=== PATIENT | male | born 1935 | race Caucasian/White ===

== ENCOUNTER → 2017-01-29 | Outpatient (CLI) | payer MEDICARE, BC ==
[2016-03-18 11:06] VITALS: BP 98/66
[~2017-01-29] MED LIST: ACET500T68 PO; ASPI81TA2 PO; CARB15DR3 OU; CARB1TAB2 PO; CARB1TAB43 PO; CEFP200T PO; CHOL100013 PO; HYPO40SP TP; MULT1TAB52 PO; NEBI5TAB2 PO; PRED1DRO OU; SIMV10TA3 PO
--- NOTE | 2017-01-29 15:33 | RAD ---
Radionuclide bone scan, 01/29/2017: History: Right hip pain, prostate cancer, recent fall Whole body imaging was performed following IV injection of 25.4 mCi of technetium 99m MDP. No previous bone scan is available at this time for comparison purposes. The following findings are delineated: 1. Foci of markedly increased activity are seen along the anterior aspects of multiple mid and upper left ribs as well as along the posterior aspects of 3 upper ribs on the left. This pattern of increased activity at the same level in adjacent ribs is typically due to trauma. 2. There is a photon deficient area of the right hip due to the patient's known hip prosthesis. There is increased activity along the acetabular margin of the prosthesis. This could be due to loosening or infection of the acetabular component. Correlation with radiographic findings is suggested. 3. Moderately increased activity in the region of the left fibular head or proximal tibia laterally. This is a nonspecific finding which may be due to trauma, given this patient's history of a recent fall. A solitary bone metastasis is less likely. Knee radiographs may be useful for further evaluation, if clinically indicated. 4. The kidneys demonstrate abnormal heterogeneous radionuclide uptake compatible with the patient's known multiple breast cysts. 5. Mildly increased activity in the lower lumbar spine on the left is likely arthritic in nature. Metastatic disease cannot be entirely excluded. 5. The bone scan is otherwise unremarkable.
== END | disposition home or self-care (01) ==
LOC: NM 10:45
PROVIDERS: ATTEND Family Medicine
DX: C61 Malignant neoplasm of prostate (principal); M25.551 Pain in right hip; Z85.46 Personal history of malignant neoplasm of prostate
CPT/HCPCS: 78306; 96374; A9503

== ENCOUNTER 2018-06-24 13:45 | Inpatient (IN) | payer MEDICARE, BC ==
[~2018-06-24] VITALS: Ht 182.9 cm; Wt 85.4 kg
[~2018-06-24 13:45] MED LIST changes: +ASPI-630 PO; -ASPI81TA2 PO
[2018-06-24] MEDS ORDERED: PIPE3.3734 IV (17:59)
[2018-06-24] MEDS ORDERED: ASCO500C9 PO (17:59)
[2018-06-24] MEDS ORDERED: METO50TA6 PO (17:59)
[2018-06-24] MEDS ORDERED: SENN1TAB21 PO (17:59)
[2018-06-24] MEDS ORDERED: DOCU100C28 PO (17:59)
[2018-06-24] MEDS ORDERED: FERR325T14 PO (17:59)
[2018-06-24] MEDS ORDERED: POLY17PO5 PO (17:59)
[2018-06-24] MEDS ORDERED: OXYB5TAB33 PO (17:59)
[2018-06-24] MEDS ORDERED: POLY15DR27 OP (17:59)
[2018-06-24] MEDS ORDERED: CARB1TAB2 PO (17:59)
[2018-06-24] MEDS ORDERED: LACT1CAP21 PO (17:59)
[2018-06-24] MEDS ORDERED: VANC1.2514 IV (17:59)
[2018-06-24] MEDS ORDERED: DEXA5DRO OP (17:59)
[2018-06-24] MEDS ORDERED: ASCO-72 PO (17:59)
[2018-06-24 18:31] VITALS: BP 115/69
[2018-06-24] MEDS ORDERED: CARB1TAB4 PO (19:10)
[2018-06-24] MEDS: CARBIDOPA/LEVODOPA 25/100MG TABLET PO SCH (19:51)
[2018-06-24] MEDS ORDERED: POLYETHYLENE GLYCOL 3350 17 GM PACKET. PO PRN (20:00)
[2018-06-24] MEDS: VANCOMYCIN PER PHARMACY MC PRN (20:30)
[2018-06-24] MEDS: OXYBUTYNIN CHLORIDE 5 MG TABLET PO SCH (20:34)
[2018-06-24] MEDS: SIMVASTATIN 10 MG TABLET PO SCH (20:35)
[2018-06-24] MEDS: METOPROLOL TART IMMED RELEASE 50 MG TABLET PO SCH (20:35)
[2018-06-24] MEDS: ASCORBIC ACID 500 MG TABLET PO SCH (20:35)
[2018-06-24] MEDS: CARBIDOPA/LEVODOPA CR 25/100MG TABLET.SA PO SCH (20:35)
[2018-06-24] MEDS: LACTOBACILLUS RHAMNOSUS GG 1 CAPSULE. PO SCH (20:35)
[2018-06-24] MEDS: FERROUS SULFATE 325 MG TABLET. PO SCH (20:35)
[2018-06-24] MEDS: DOCUSATE SODIUM 100 MG CAPSULE PO SCH (20:35)
[2018-06-24] MEDS: POLYVINYL ALCOHOL 1.4% OPHTH SOLUTION 15ML BOTTLE. OU SCH (20:35)
[2018-06-24] MEDS: PIPERACILLIN/TAZOBACTAM 3.375 GM in IV NORMAL SALINE 50ML 50 ML IV SCH ×2 (20:36→23:17)
[2018-06-24] MEDS ORDERED: [UNRECOGNIZED DRUG - OTHER] IV SCH (21:00)
[2018-06-24] MEDS ORDERED: VANCOMYCIN HCL IN DEXTROSE IV SCH (21:00)
[2018-06-24] MEDS: VANCOMYCIN 1.25 GM in IV NORMAL SALINE 250ML 250 ML IV SCH (21:11)
[2018-06-25 05:24] VITALS: BP 156/77
[2018-06-25] MEDS: PIPERACILLIN/TAZOBACTAM 3.375 GM in IV NORMAL SALINE 50ML 50 ML IV SCH ×3 (06:13→17:48)
[2018-06-25] MEDS: CARBIDOPA/LEVODOPA 25/100MG TABLET PO SCH ×4 (06:15→18:03)
[2018-06-25 06:42] LABS: BASO # 0.1 x10^3/uL (0.0-0.2); BASO % 1 % (0-3); EOS # 0.3 x10^3/uL (0.0-0.7); EOS % 3 % (0-3); HEMOGLOBIN 8.5 g/dL (13.0-17.5); LYMPH % 10 % (24-48); MEAN CORPUSCULAR HEMOGLOBIN 30 pg (25-35); MEAN CORPUSCULAR HGB CONC 33 g/dL (31-37); MEAN CORPUSCULAR VOLUME 91 fL (79-100); MONO # 0.8 x10^3/uL (0.0-1.1); MONO % 8 % (0-9); NEUT # 7.3 x10^3uL (1.8-7.7); NEUT % 78 % (31-73); PLATELET COUNT 94 x10^3/uL (140-400); RED BLOOD COUNT 2.87 x10^6/uL (4.30-5.70); RED CELL DISTRIBUTION WIDTH 16.2 % (11.5-14.5); WHITE BLOOD COUNT 9.4 x10^3/uL (4.0-11.0)
[2018-06-25 06:47] LABS: CALCIUM 8.4 mg/dL (8.5-10.1); CREATININE 0.8 mg/dL (0.7-1.3); GFR 92.5; POTASSIUM 3.9 mmol/L (3.5-5.1)
[2018-06-25 07:32] LABS: % BANDS 1 % (0-9); % BASOS 0 % (0-3); % EOS 4 % (0-5); % LYMPHS 8 % (24-48); % MONOS 3 % (0-10); % SEGS 84 % (35-66); PLT ESTIMATE DECREASED (ADEQUATE)
[2018-06-25 08:54] LABS: HYPOCHROMIA PRESENT; POLYCHROMASIA PRESENT
[2018-06-25] MEDS: VANCOMYCIN 1.25 GM in IV NORMAL SALINE 250ML 250 ML IV SCH ×2 (09:44→21:23)
[2018-06-25] MEDS: DOCUSATE SODIUM 100 MG CAPSULE PO SCH ×2 (09:45→21:00)
[2018-06-25] MEDS: ACETAMINOPHEN 325 MG TABLET PO PRN (09:45)
[2018-06-25] MEDS: ASCORBIC ACID 500 MG TABLET PO SCH ×2 (09:45→21:25)
[2018-06-25] MEDS: FERROUS SULFATE 325 MG TABLET. PO SCH ×2 (09:45→21:24)
[2018-06-25] MEDS: METOPROLOL TART IMMED RELEASE 50 MG TABLET PO SCH ×2 (09:45→21:24)
[2018-06-25] MEDS: LACTOBACILLUS RHAMNOSUS GG 1 CAPSULE. PO SCH ×2 (09:45→21:24)
[2018-06-25] MEDS: SENNOSIDES/DOCUSATE 8.6/50MG TABLET. PO SCH (09:46)
[2018-06-25] MEDS: OXYBUTYNIN CHLORIDE 5 MG TABLET PO SCH ×2 (09:46→21:24)
[2018-06-25] MEDS: MULTIVITAMIN with MINERAL TABLET. PO SCH (09:46)
[2018-06-25] MEDS: POLYVINYL ALCOHOL 1.4% OPHTH SOLUTION 15ML BOTTLE. OU SCH ×2 (09:48→21:26)
--- NOTE | 2018-06-25 15:54 | PDOC1 ---
History of Present Illness History of Present Illness Patient is an 83-year-old male admitted for swing bed status for IV antibiotics and PT/OT. Patient suffered a fall while trying to walk backwards on the driveway and suffered a left femoral neck fracture. May 30, 2018 underwent left hip hemiarthroplasty and was discharged back to [facility] where he fell again and suffered a periprosthetic fracture. June 11, 2018 he went back to the OR for rewiring of the fracture and added hardware. He was again discharged however blood cultures came back positive for multiple organisms (MRSA, pseudomonas, enterococcus) and the patient was admitted with infectious disease consultation. He is currently on Zosyn and vancomycin I find the patient today sedated with breakthrough shahida-ballistic movements. According to his spouse who is at bedside his Parkinson medications have to be given on a very specific regimen or he can exhibit these types of neurologic symptoms. Physical therapy has been working with him trying to get him to stand he is currently sleeping and snoring loudly. Allergies: Coded Allergies: I S O L A T I O N *CONTACT* (Verified Allergy, Unknown, 06/27/18) +MRSA hip 06/11/2018 NKMA (Verified Allergy, Unknown, 06/27/18) Past Medical History Cardiac: HTN, hyperipidemia, valve insufficiency SERVICE DISPATCHER: Dementia (Parkinson's) Renal/: Benign prostatic enlarg., Prostate Ca., Urinary Incontinence Past Surgical History: Other (left hip hemiarthroplasty status post rewiring periprosthetic fracture and revision due to infection) Past Social History Smoke: No Alcohol: none Drugs: None Lives: with Family (lives at home with his ) Review of Systems Review Of Systems Due to patient's sedation accurate review of systems is unobtainable Medications Current Medications Carbidopa/Levodopa (Sinemet 25/100) 2 tab 0630,1030,1430,1830 PO Last administered on 06/25/18at 14:11; Start 06/24/18 at 20:00 Dexamethasone (Maxidex) 1 drop QMWF@0900 OU ; Start 06/27/18 at 09:00 Ferrous Sulfate (Feosol) 325 mg BID PO Last administered on 06/25/18at 09:45; Start 06/24/18 at 21:00 Artificial Tears (Artificial Tears) 1 drop BID OU Last administered on at 09:48; Start 06/24/18 at 21:00 Senna/Docusate Sodium (Senna Plus) 1 tab DAILY PO Last administered on 09:46; Start 06/25/18 at 09:00 Simvastatin (Zocor) 10 mg HS PO Last administered on 06/24/18 20:35; Start at 21:00 Acetaminophen (Tylenol) 650 mg PRN Q4HRS PRN PO PAIN / TEMP Last administered on 06/25/18 09:45; Start 06/24/18 at 19:45 Ascorbic Acid (Vitamin C) 500 mg BID PO Last administered on 06/25/18 09:45; Start 06/24/18 at 21:00 Carbidopa/Levodopa (Sinemet Cr) 2 tab.sa QHS PO Last administered on 06/24/18 20:35; Start 06/24/18 at 21:00 Docusate Sodium (Colace) 100 mg BID PO Last administered on 06/25/18 09:45; Start 06/24/18 at 21:00 Lactobacillus Rhamnosus (Culturelle) 1 cap BID PO Last administered on 09:45; Start 06/24/18 at 21:00 Metoprolol Tartrate (Lopressor) 50 mg BID PO Last administered on 06/25/18 09: 45; Start 06/24/18 at 21:00 Multivitamins/ Calcium (Thera-M Plus) 1 tab DAILY PO Last administered on 09:46; Start 06/25/18 at 09:00 Oxybutynin Chloride (Ditropan) 5 mg BID PO Last administered on 06/25/18 09:46 ; Start 06/24/18 at 21:00 Non-Formulary Medication (Piperacillin Sodium/Tazobactam (Piperacil-Tazobact 3.375 Gm Vl)) 3.375 gm Q6HRS IV ; Start 06/25/18 at 00:00; Status UNV Polyethylene Glycol (miraLAX) 17 gm PRN DAILY PRN PO CONSTIPATION; Start at 20:00 Non-Formulary Medication (Vancomycin HCl in Dextrose 5 % (Vancomycin 1.25 Gram/ 250Ml-D5w)) 1.25 gm Q12HR IV ; Start 06/24/18 at 21:00; Status UNV Piperacillin Sod/ Tazobactam Sod 3.375 gm/Sodium Chloride 50 ml @ 100 mls/hr Q6HRS IV Last administered on 06/25/18at 14:11; Start 06/24/18 at 20:30 Vancomycin HCl (Vanco Per Pharmacy) 1 each PRN DAILY PRN MC SEE COMMENTS Last administered on 06/24/18at 20:30; Start 06/24/18 at 19:45 Vancomycin HCl 1.25 gm/Sodium Chloride 250 ml @ 167 mls/hr Q12H IV Last administered on 06/25/18at 09:44; Start 06/24/18 at 21:00 Vancomycin HCl (Vancomycin Trough Level) 1 each 1X ONCE MC ; Start 06/27/18 at 08:30; Stop 06/27/18 at 08:31 Active Scripts Active Reported Sinemet Cr 25-100 Tablet (Carbidopa/Levodopa) 1 Each Tablet.er 1 Each PO HS Vancomycin 1.25 Gram/250Ml-D5w (Vancomycin HCl in Dextrose 5 %) 1.25 Gm/250 Ml Plast..bag 1.25 Gm IV Q12HR Senna Plus Tablet (Sennosides/Docusate Sodium) 1 Each Tablet 1 Each PO DAILY Artificial Tears (Polyvinyl Alcohol) 15 Ml Drops 15 Ml OP BID Miralax (Polyethylene Glycol 3350) 17 Gm Powd.pack 17 Gm PO PRN DAILY Piperacil-Tazobact 3.375 Gm Vl (Piperacillin Sodium/Tazobactam) 3.375 Gm Vial 3.375 Gm IV Q6HRS Ditropan Xl (Oxybutynin Chloride) 5 Mg Tab.er.24 5 Mg PO BID Metoprolol Tartrate 50 Mg Tablet 50 Mg PO BID Culturelle (Lactobacillus Rhamnosus Gg) 1 Each Capsule 1 Each PO BID Ferrous Sulfate 325 Mg Tablet 325 Mg PO BID Docusate Sodium 100 Mg Capsule 100 Mg PO BID Maxidex (Dexamethasone) 5 Ml Drops.susp 5 Ml OP QMWF Vitamin C (Ascorbic Acid) 500 Mg Capsule 500 Mg PO BID Acetaminophen 500 Mg Tablet 650 Mg PO PRN Q4HRS PRN LAST DOSE GIVEN: DATE: TIME: NEXT DOSE DUE: DATE: TIME: Multivitamins (Multivitamin) 1 Each Tablet 1 Each PO DAILY LAST DOSE GIVEN: DATE: TODAY TIME: AM NEXT DOSE DUE: DATE: TOMORROW TIME: AM Simvastatin 10 Mg Tablet 10 Mg PO HS LAST DOSE GIVEN: DATE: YESTERDAY TIME: AT BEDTIME NEXT DOSE DUE: DATE: TODAY TIME: AT BEDTIME Sinemet 25-100 Mg Tablet (Carbidopa/Levodopa) 1 Each Tablet 2 Each PO 0630,1030, 1430,1830 LAST DOSE GIVEN: DATE: TIME: AM NEXT DOSE DUE: DATE: TODAY TIME: AFTERNOON Exam Vital Signs Vital Signs Date Time Temp Pulse Resp B/P (MAP) Pulse Ox O2 Delivery O2 Flow Rate FiO2 06/25/18 09:45 80 156/77 06/25/18 08:00 Room Air 06/25/18 05:24 97.8 20 91 General Appearance: Other (sedated and lethargic and arouses to verbal stimuli no apparent distress) HEENT: Atraumatic, Mucous membr. moist/pink Respiratory: Clear to auscultation, Normal air movement Heart: Normal S1, Normal S2, No murmurs Abdominal: Normal bowel sounds, Soft Extremities: Other (sterile dressing over surgical site) Skin: No rashes, No breakdown Neuro: Other (shahida-ballistic movements moves all extremities sedated) Assessment/Plan Assessment/Plan Basically patient has history of Parkinson's and suffered a fall while trying to walk backwards on the driveway and suffered a left femoral neck fracture. May 30, 2018 underwent left hip hemiarthroplasty and was discharged back to [facility] where he fell again and suffered a periprosthetic fracture. June 11, 2018 he went back to the OR for rewiring of the fracture and added hardware. He was again discharged however blood cultures came back positive for multiple organisms (MRSA, pseudomonas, enterococcus) and the patient was admitted with infectious disease consultation. He is currently on Zosyn and vancomycin PT/OT evaluation and treatments DVT Prophylaxis: Eliquis 2.5mg bid GI prophylaxis: pepcid 20mg bid COURSE Allergies Coded Allergies Type Severity Reaction Last Updated Verified No Known Drug Allergies 03/15/16 No Laboratory Tests Test 06/25/18 06:30 White Blood Count 9.4 x10^3/uL (4.0-11.0) Red Blood Count 2.87 x10^6/uL (4.30-5.70) Hemoglobin 8.5 g/dL (13.0-17.5) Hematocrit 26.0 % (39.0-53.0) Mean Corpuscular Volume 91 fL (79-100) Mean Corpuscular Hemoglobin 30 pg (25-35) Mean Corpuscular Hemoglobin Concent 33 g/dL (31-37) Red Cell Distribution Width 16.2 % (11.5-14.5) Platelet Count 94 x10^3/uL (140-400) Neutrophils (%) (Auto) 78 % (31-73) Lymphocytes (%) (Auto) 10 % (24-48) Monocytes (%) (Auto) 8 % (0-9) Eosinophils (%) (Auto) 3 % (0-3) Basophils (%) (Auto) 1 % (0-3) Neutrophils # (Auto) 7.3 x10^3uL (1.8-7.7) Lymphocytes # (Auto) 1.0 x10^3/uL (1.0-4.8) Monocytes # (Auto) 0.8 x10^3/uL (0.0-1.1) Eosinophils # (Auto) 0.3 x10^3/uL (0.0-0.7) Basophils # (Auto) 0.1 x10^3/uL (0.0-0.2) Segmented Neutrophils % 84 % (35-66) Band Neutrophils % 1 % (0-9) Lymphocytes % 8 % (24-48) Monocytes % 3 % (0-10) Eosinophils % 4 % (0-5) Basophils % 0 % (0-3) Platelet Estimate Decreased (ADEQUATE) Polychromasia Present Hypochromasia Present Sodium Level 138 mmol/L (136-145) Potassium Level 3.9 mmol/L (3.5-5.1) Chloride Level 104 mmol/L (98-107) Carbon Dioxide Level 28 mmol/L (21-32) Anion Gap 6 (6-14) Blood Urea Nitrogen 7 mg/dL (8-26) Creatinine 0.8 mg/dL (0.7-1.3) Estimated GFR (Cockcroft-Gault) 92.5 Glucose Level 94 mg/dL (70-99) Calcium Level 8.4 mg/dL (8.5-10.1) Current Medications Medications (Trade) Dose Ordered Sig/Neena Route PRN Reason Start Time Stop Time Status Last Admin Dose Admin Carbidopa/Levodopa (Sinemet 25/100) 2 tab 0630,1030,1430,1830 PO 06/24/18 20:00 06/25/18 14:11 Dexamethasone (Maxidex) 1 drop QMWF@0900 OU 06/27/18 09:00 Ferrous Sulfate (Feosol) 325 mg BID PO 06/24/18 21:00 06/25/18 09:45 Artificial Tears (Artificial Tears) 1 drop BID OU 06/24/18 21:00 06/25/18 09:48 Senna/Docusate Sodium (Senna Plus) 1 tab DAILY PO 06/25/18 09:00 06/25/18 09:46 Simvastatin (Zocor) 10 mg HS PO 06/24/18 21:00 06/24/18 20:35 Acetaminophen (Tylenol) 650 mg PRN Q4HRS PRN PO PAIN / TEMP 06/24/18 19:45 06/25/18 09:45 Ascorbic Acid (Vitamin C) 500 mg BID PO 06/24/18 21:00 06/25/18 09:45 Carbidopa/Levodopa (Sinemet Cr) 2 tab.sa QHS PO 06/24/18 21:00 06/24/18 20:35 Docusate Sodium (Colace) 100 mg BID PO 06/24/18 21:00 06/25/18 09:45 Lactobacillus Rhamnosus (Culturelle) 1 cap BID PO 06/24/18 21:00 06/25/18 09:45 Metoprolol Tartrate (Lopressor) 50 mg BID PO 06/24/18 21:00 06/25/18 09:45 Multivitamins/ Calcium (Thera-M Plus) 1 tab DAILY PO 06/25/18 09:00 06/25/18 09:46 Oxybutynin Chloride (Ditropan) 5 mg BID PO 06/24/18 21:00 06/25/18 09:46 Non-Formulary Medication (Piperacillin Sodium/Tazobactam (Piperacil-Tazobact 3.375 Gm Vl)) 3.375 gm Q6HRS IV 06/25/18 00:00 UNV Polyethylene Glycol (miraLAX) 17 gm PRN DAILY PRN PO CONSTIPATION 06/24/18 20:00 Non-Formulary Medication (Vancomycin HCl in Dextrose 5 % (Vancomycin 1.25 Gram/250Ml-D5w)) 1.25 gm Q12HR IV 06/24/18 21:00 UNV Piperacillin Sod/ Tazobactam Sod 3.375 gm/Sodium Chloride 50 ml @ 100 mls/hr Q6HRS IV 06/24/18 20:30 06/25/18 14:11 Vancomycin HCl (Vanco Per Pharmacy) 1 each PRN DAILY PRN MC SEE COMMENTS 06/24/18 19:45 06/24/18 20:30 Vancomycin HCl 1.25 gm/Sodium Chloride 250 ml @ 167 mls/hr Q12H IV 06/24/18 21:00 06/25/18 09:44 Vancomycin HCl (Vancomycin Trough Level) 1 each 1X ONCE MC 06/27/18 08:30 06/27/18 08:31 I & O 06/25/18 00:00 Intake Total 280 ml Output Total 1000 ml Balance -720 ml Orders Procedure Category Date Status Time Cbc W Autodiff LAB 06/27/18 Verified 05:00 Comprehensive LAB 06/27/18 Verified Metabolic Panel 05:00 Sedimentation Rate LAB 06/27/18 Verified 05:00 C Reactive Protein LAB 06/27/18 Verified 05:00 Vancomycin, Trough LAB 06/27/18 Verified 08:30 Pt Eval And Treat PT 06/24/18 Complete 17:14 Ot Eval And Treat OT 06/24/18 Logged 17:14 Regular DIET 06/24/18 Transmitted Dinner Code Status CODE 06/24/18 Transmitted 17:16 Wound Care Consult CONS 06/24/18 Transmitted 19:12 Dexamethasone 0.1% PHA 06/27/18 In Process Ophth (Maxidex) 09:00 Ferrous Sulfate PHA 06/24/18 In Process (Feosol) 21:00 Polyvinyl Alcohol PHA 06/24/18 In Process 1.4% Ophth (Artificial 21:00 Sennosides/Docusate PHA 06/25/18 In Process 8.6/50mg (Senna Plus 09:00 Simvastatin (Zocor) PHA 06/24/18 In Process 21:00 Acetaminophen PHA 06/24/18 In Process (Tylenol) 19:45 Ascorbic Acid PHA 06/24/18 In Process (Vitamin C) 21:00 Carbidopa/Levodopa Cr PHA 06/24/18 In Process 25/100mg (Sinemet 21:00 Docusate Sodium PHA 06/24/18 In Process (Colace) 21:00 Lactobacillus PHA 06/24/18 In Process Rhamnosus Gg 21:00 Metoprolol Tart Immed PHA 06/24/18 In Process Release (Lopressor 21:00 Multivitamin With PHA 06/25/18 In Process Mineral (Thera-M Plus) 09:00 Oxybutynin Chloride PHA 06/24/18 In Process (Ditropan) 21:00 Polyethylene Glycol PHA 06/24/18 In Process 3350 (Miralax) 20:00 Cbc W Autodiff LAB 06/25/18 Complete 05:00 Basic Metabolic Panel LAB 06/25/18 Complete 05:00 Carbidopa/Levodopa PHA 06/24/18 In Process 25/100mg (Sinemet 25/ 20:00 Vancomycin Per PHA 06/24/18 In Process Pharmacy (Vanco Per 19:45 Vancomycin PHA 06/24/18 In Process (Vancomycin) 21:00 Piperacillin/Tazobactam PHA 06/24/18 In Process (Zosyn) 20:30 Admit Orders ADT 06/25/18 Transmitted 03:28 Manual Differential LAB 06/25/18 Complete 06:30 Vancomycin Trough PHA 06/27/18 In Process Level (Vancomycin Trou 08:30 Vital Signs Date Time Temp Pulse Resp B/P (MAP) Pulse Ox O2 Delivery O2 Flow Rate FiO2 06/25/18 09:45 80 156/77 06/25/18 08:00 Room Air 06/25/18 05:24 97.8 20 91 HANNY AGUILAR DO Jun 25, 2018 15:54
[2018-06-25] MEDS: CARBIDOPA/LEVODOPA CR 25/100MG TABLET.SA PO SCH (17:48)
[2018-06-25 18:21] VITALS: BP 122/69
[2018-06-25] MEDS: FAMOTIDINE 20 MG/2 ML VIAL IVP SCH (21:23)
[2018-06-25] MEDS: APIXABAN 2.5 MG TABLET PO SCH (21:25)
[2018-06-25] MEDS: SIMVASTATIN 10 MG TABLET PO SCH (21:25)
[2018-06-26] MEDS: PIPERACILLIN/TAZOBACTAM 3.375 GM in IV NORMAL SALINE 50ML 50 ML IV SCH ×4 (00:02→17:56)
[2018-06-26] MEDS: ACETAMINOPHEN 325 MG TABLET PO PRN (00:30)
[2018-06-26 05:59] VITALS: BP 165/86
[2018-06-26] MEDS: CARBIDOPA/LEVODOPA 25/100MG TABLET PO SCH ×4 (06:11→18:19)
[2018-06-26] MEDS: ASCORBIC ACID 500 MG TABLET PO SCH ×2 (07:54→21:07)
[2018-06-26] MEDS: VANCOMYCIN 1.25 GM in IV NORMAL SALINE 250ML 250 ML IV SCH ×2 (07:54→21:08)
[2018-06-26] MEDS: METOPROLOL TART IMMED RELEASE 50 MG TABLET PO SCH ×2 (07:54→21:06)
[2018-06-26] MEDS: LACTOBACILLUS RHAMNOSUS GG 1 CAPSULE. PO SCH ×2 (07:54→21:05)
[2018-06-26] MEDS: MULTIVITAMIN with MINERAL TABLET. PO SCH (07:54)
[2018-06-26] MEDS: SENNOSIDES/DOCUSATE 8.6/50MG TABLET. PO SCH (07:54)
[2018-06-26] MEDS: OXYBUTYNIN CHLORIDE 5 MG TABLET PO SCH ×2 (07:54→21:05)
[2018-06-26] MEDS: APIXABAN 2.5 MG TABLET PO SCH ×2 (07:54→21:06)
[2018-06-26] MEDS: FAMOTIDINE 20 MG/2 ML VIAL IVP SCH ×2 (07:55→21:05)
[2018-06-26] MEDS: DOCUSATE SODIUM 100 MG CAPSULE PO SCH ×2 (07:55→21:06)
[2018-06-26] MEDS: POLYVINYL ALCOHOL 1.4% OPHTH SOLUTION 15ML BOTTLE. OU SCH ×2 (07:55→21:38)
[2018-06-26] MEDS: FERROUS SULFATE 325 MG TABLET. PO SCH ×2 (07:55→21:06)
[2018-06-26 17:52] VITALS: BP 104/65
--- NOTE | 2018-06-26 19:34 | PDOC ---
Exam Note: Isak Note: Please also refer to the separate dictated note~for this date of service dictated separately.~Patient seen individually. Discussed the patient with Nursing staff reviewed the chart.~Reviewed interim history and current functioning. Reviewed vital signs,~Labs/ Radiology~and current medications noted below. Continue current treatment with the changes noted in the dictated addendum note Assessment: Vital Signs: Vital Signs Date Time Temp Pulse Resp B/P (MAP) Pulse Ox O2 Delivery O2 Flow Rate FiO2 06/26/18 19:22 Room Air 06/26/18 17:52 98.7 118 22 104/65 (78) 93 I&O Intake and Output 06/26/18 07:00 Intake Total 2687.43 ml Output Total 1850 ml Balance 837.43 ml Intake Oral 1800 ml IV Total 887.43 ml Output Urine Total 1850 ml # Voids 9 Current Medications: Meds: Current Medications Carbidopa/Levodopa (Sinemet 25/100) 2 tab 0630,1030,1430,1830 PO Last administered on 06/26/18 18:19; Start 06/24/18 at 20:00 Dexamethasone (Maxidex) 1 drop QMWF@0900 OU ; Start 06/27/18 at 09:00 Ferrous Sulfate (Feosol) 325 mg BID PO Last administered on 06/26/18at 07:55; Start 06/24/18 at 21:00 Artificial Tears (Artificial Tears) 1 drop BID OU Last administered on 07:55; Start 06/24/18 at 21:00 Senna/Docusate Sodium (Senna Plus) 1 tab DAILY PO Last administered on 07:54; Start 06/25/18 at 09:00 Simvastatin (Zocor) 10 mg HS PO Last administered on 06/25/18 21:25; Start at 21:00 Acetaminophen (Tylenol) 650 mg PRN Q4HRS PRN PO PAIN / TEMP Last administered on 06/26/18at 00:30; Start 06/24/18 at 19:45 Ascorbic Acid (Vitamin C) 500 mg BID PO Last administered on 06/26/18 07:54; Start 06/24/18 at 21:00 Carbidopa/Levodopa (Sinemet Cr) 2 tab.sa QHS PO Last administered on 9/15/18at 17:48; Start 06/24/18 at 21:00 Docusate Sodium (Colace) 100 mg BID PO Last administered on 06/26/18at 07:55; Start 06/24/18 at 21:00 Lactobacillus Rhamnosus (Culturelle) 1 cap BID PO Last administered on 07:54; Start 06/24/18 at 21:00 Metoprolol Tartrate (Lopressor) 50 mg BID PO Last administered on 06/26/18 07: 54; Start 06/24/18 at 21:00 Multivitamins/ Calcium (Thera-M Plus) 1 tab DAILY PO Last administered on at 07:54; Start 06/25/18 at 09:00 Oxybutynin Chloride (Ditropan) 5 mg BID PO Last administered on 06/26/18 07:54 ; Start 06/24/18 at 21:00 Non-Formulary Medication (Piperacillin Sodium/Tazobactam (Piperacil-Tazobact 3.375 Gm Vl)) 3.375 gm Q6HRS IV ; Start 06/25/18 at 00:00; Status UNV Polyethylene Glycol (miraLAX) 17 gm PRN DAILY PRN PO CONSTIPATION; Start at 20:00 Non-Formulary Medication (Vancomycin HCl in Dextrose 5 % (Vancomycin 1.25 Gram/ 250Ml-D5w)) 1.25 gm Q12HR IV ; Start 06/24/18 at 21:00; Status UNV Piperacillin Sod/ Tazobactam Sod 3.375 gm/Sodium Chloride 50 ml @ 100 mls/hr Q6HRS IV Last administered on 06/26/18at 17:56; Start 06/24/18 at 20:30 Vancomycin HCl (Vanco Per Pharmacy) 1 each PRN DAILY PRN MC SEE COMMENTS Last administered on 06/24/18at 20:30; Start 06/24/18 at 19:45 Vancomycin HCl 1.25 gm/Sodium Chloride 250 ml @ 167 mls/hr Q12H IV Last administered on 06/26/18at 07:54; Start 06/24/18 at 21:00 Vancomycin HCl (Vancomycin Trough Level) 1 each 1X ONCE MC ; Start 06/27/18 at 08:30; Stop 06/27/18 at 08:31 Apixaban (Eliquis) 2.5 mg BID PO Last administered on 06/26/18at 07:54; Start at 21:00 Famotidine (Pepcid Vial) 20 mg BID IVP Last administered on 06/26/18at 07:55; Start 06/25/18 at 21:00 Active Scripts Active Reported Sinemet Cr 25-100 Tablet (Carbidopa/Levodopa) 1 Each Tablet.er 1 Each PO HS Vancomycin 1.25 Gram/250Ml-D5w (Vancomycin HCl in Dextrose 5 %) 1.25 Gm/250 Ml Plast..bag 1.25 Gm IV Q12HR Senna Plus Tablet (Sennosides/Docusate Sodium) 1 Each Tablet 1 Each PO DAILY Artificial Tears (Polyvinyl Alcohol) 15 Ml Drops 15 Ml OP BID Miralax (Polyethylene Glycol 3350) 17 Gm Powd.pack 17 Gm PO PRN DAILY Piperacil-Tazobact 3.375 Gm Vl (Piperacillin Sodium/Tazobactam) 3.375 Gm Vial 3.375 Gm IV Q6HRS Ditropan Xl (Oxybutynin Chloride) 5 Mg Tab.er.24 5 Mg PO BID Metoprolol Tartrate 50 Mg Tablet 50 Mg PO BID Culturelle (Lactobacillus Rhamnosus Gg) 1 Each Capsule 1 Each PO BID Ferrous Sulfate 325 Mg Tablet 325 Mg PO BID Docusate Sodium 100 Mg Capsule 100 Mg PO BID Maxidex (Dexamethasone) 5 Ml Drops.susp 5 Ml OP QMWF Vitamin C (Ascorbic Acid) 500 Mg Capsule 500 Mg PO BID Acetaminophen 500 Mg Tablet 650 Mg PO PRN Q4HRS PRN LAST DOSE GIVEN: DATE: TIME: NEXT DOSE DUE: DATE: TIME: Multivitamins (Multivitamin) 1 Each Tablet 1 Each PO DAILY LAST DOSE GIVEN: DATE: TODAY TIME: AM NEXT DOSE DUE: DATE: TOMORROW TIME: AM Simvastatin 10 Mg Tablet 10 Mg PO HS LAST DOSE GIVEN: DATE: YESTERDAY TIME: AT BEDTIME NEXT DOSE DUE: DATE: TODAY TIME: AT BEDTIME Sinemet 25-100 Mg Tablet (Carbidopa/Levodopa) 1 Each Tablet 2 Each PO 0630,1030, 1430,1830 LAST DOSE GIVEN: DATE: TODAY TIME: AM NEXT DOSE DUE: DATE: TODAY TIME: AFTERNOON I have reviewed the current psychotropics carefully including drug interactions. Risk benefit ratio favors no change other than as noted in my dictated progress note. Diagnosis: Problems: (1) Anxiety disorder (2) Mild cognitive impairment (3) Impulse control disorder JONO FULLER MD Jun 26, 2018 19:34
[2018-06-26] MEDS: SIMVASTATIN 10 MG TABLET PO SCH (21:06)
[2018-06-26] MEDS: CARBIDOPA/LEVODOPA CR 25/100MG TABLET.SA PO SCH (22:29)
[2018-06-27] MEDS: PIPERACILLIN/TAZOBACTAM 3.375 GM in IV NORMAL SALINE 50ML 50 ML IV SCH ×5 (00:12→23:42)
[2018-06-27] MEDS: CARBIDOPA/LEVODOPA 25/100MG TABLET PO SCH ×4 (06:11→18:18)
[2018-06-27 06:23] VITALS: BP 134/72
[2018-06-27 07:31] LABS: BASO # 0.1 x10^3/uL (0.0-0.2); BASO % 1 % (0-3); EOS # 0.4 x10^3/uL (0.0-0.7); EOS % 5 % (0-3); HEMATOCRIT 25.3 % (39.0-53.0); HEMOGLOBIN 8.3 g/dL (13.0-17.5); LYMPH # 0.8 x10^3/uL (1.0-4.8); LYMPH % 10 % (24-48); MEAN CORPUSCULAR HEMOGLOBIN 30 pg (25-35); MEAN CORPUSCULAR HGB CONC 33 g/dL (31-37); MEAN CORPUSCULAR VOLUME 90 fL (79-100); MONO # 0.7 x10^3/uL (0.0-1.1); MONO % 8 % (0-9); NEUT # 6.1 x10^3uL (1.8-7.7); NEUT % 75 % (31-73); PLATELET COUNT 281 x10^3/uL (140-400); RED CELL DISTRIBUTION WIDTH 16.7 % (11.5-14.5); WHITE BLOOD COUNT 8.1 x10^3/uL (4.0-11.0)
[2018-06-27 07:38] LABS: ALBUMIN 2.2 g/dL (3.4-5.0); ALBUMIN/GLOBULIN RATIO 0.6 (1.0-1.7); C REACTIVE PROTEIN 50.3 mg/L (0-3.3); CALCIUM 8.1 mg/dL (8.5-10.1); CREATININE 0.8 mg/dL (0.7-1.3); GFR 92.5; POTASSIUM 3.8 mmol/L (3.5-5.1); TOTAL BILIRUBIN 0.5 mg/dL (0.2-1.0); TOTAL PROTEIN 5.6 g/dL (6.4-8.2)
[2018-06-27] MEDS: SENNOSIDES/DOCUSATE 8.6/50MG TABLET. PO SCH (08:16)
[2018-06-27] MEDS: LACTOBACILLUS RHAMNOSUS GG 1 CAPSULE. PO SCH ×2 (08:16→21:29)
[2018-06-27] MEDS: APIXABAN 2.5 MG TABLET PO SCH ×2 (08:16→21:29)
[2018-06-27] MEDS: FERROUS SULFATE 325 MG TABLET. PO SCH ×2 (08:16→21:29)
[2018-06-27] MEDS: DOCUSATE SODIUM 100 MG CAPSULE PO SCH ×2 (08:16→21:29)
[2018-06-27] MEDS: ASCORBIC ACID 500 MG TABLET PO SCH ×2 (08:16→21:29)
[2018-06-27] MEDS: METOPROLOL TART IMMED RELEASE 50 MG TABLET PO SCH ×2 (08:16→21:29)
[2018-06-27] MEDS: OXYBUTYNIN CHLORIDE 5 MG TABLET PO SCH ×2 (08:16→21:29)
[2018-06-27] MEDS: MULTIVITAMIN with MINERAL TABLET. PO SCH (08:16)
[2018-06-27] MEDS: DEXAMETHASONE 0.1% OPHTH SOLUTION 5ML BOTTLE. OU SCH (08:17)
[2018-06-27] MEDS: FAMOTIDINE 20 MG/2 ML VIAL IVP SCH ×2 (08:17→21:28)
[2018-06-27] MEDS: POLYVINYL ALCOHOL 1.4% OPHTH SOLUTION 15ML BOTTLE. OU SCH ×2 (08:17→21:28)
[2018-06-27 08:50] LABS: SEDIMENTATION RATE 50 (0-15)
[2018-06-27 09:10] LABS: VANC TR 14.8 mcg/mL (10.0-20.0)
[2018-06-27] MEDS: VANCOMYCIN 1.25 GM in IV NORMAL SALINE 250ML 250 ML IV SCH ×2 (09:40→21:28)
[2018-06-27] MEDS: ACETAMINOPHEN 325 MG TABLET PO PRN (14:24)
[2018-06-27 18:30] VITALS: BP 96/48
[2018-06-27 21:24] VITALS: BP 115/70
[2018-06-27] MEDS: SIMVASTATIN 10 MG TABLET PO SCH (21:29)
[2018-06-27] MEDS: CARBIDOPA/LEVODOPA CR 25/100MG TABLET.SA PO SCH (22:33)
--- NOTE | 2018-06-27 23:49 | PN ---
DATE: 06/27/2018 SUBJECTIVE: The patient is resting, slightly propped up in bed, in no apparent respiratory distress. He is sleepy, but arousable, somewhat confused, but denied any complaint. Nursing staff did not voice any concerns except he has an uneventful night. The family did not want any psychotropic medication and did not want him to be seen by our psychiatrist. There is some leakage from his wound that was reinforced by gauze, but we did consult the wound care team to change the dressing. OBJECTIVE: GENERAL: On examining him, he looked well and was clearly in no apparent respiratory distress, pale, but no jaundice, cyanosis, or thyromegaly. No jugular venous distention. No limb edema. VITAL SIGNS: His heart rate was 72, blood pressure 134/72, temperature was 98.3, respiratory rate was 20, and oxygen saturation was 97% on room air. HEAD, EYES, EARS, NOSE AND THROAT: Showed normocephalic, atraumatic. NECK: Supple. CARDIAC: Normal first and second heart sounds with no gallop, rub or murmur. CHEST: Clear to auscultation. No crepitation or rhonchi. ABDOMEN: Distended, soft, nontender. NEUROLOGIC: He is somewhat confused, but all his cranial nerves are intact. He moves extremities without difficulty. His intake over the last 24 hours was 2687, output was 1850. LABORATORY DATA: This morning showed his white cell count is 8100, hemoglobin 8.3, hematocrit 25.3, MCV 90 and platelet count 281,000. His chemistry showed a serum sodium 136, potassium 3.8, chloride 102, bicarbonate 29, anion gap of 5, BUN 8, creatinine 0.8, estimated GFR was 92 mL per minute. His glucose was 104, calcium was 8.1. Total bilirubin, AST, ALT were normal. Alkaline phosphatase slightly elevated. Total protein was 5.6, albumin 2.2. C-reactive protein was high at 50 mg/dL. His sedimentation rate was 50 mm per hour. 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 His vancomycin trough level was within therapeutic range. PLAN: Continue with IV vancomycin as well as Zosyn. Continue with his carbidopa and levodopa of his parkinsonism. Continue with DVT prophylaxis. Continue with physical and occupational therapy. ANA FINNEGAN MD DR: HÉCTOR/nathaniel JOB#: [id number] / [id number]
--- NOTE | 2018-06-28 03:28 | CONS ---
DATE OF CONSULTATION: 06/26/2018 This late entry for 06/26/2018 covers elements not covered in my initial note of 06/26/2018. SUBJECTIVE: I met with the patient evening of 06/26/2018 and also with his daughter. Discussed with nursing staff. IDENTIFYING DATA: The patient is an 83-year-old male seen in bed [address] [facility] long term care unit together with his daughter, referred by Dr. Palomino on account of delirium, status post hip surgery for left femoral neck fracture and his confusion, which has been significant, especially following a second surgery. CHIEF COMPLAINT: "Okay." HISTORY OF PRESENT ILLNESS: The patient was reportedly functioning reasonably well at home, living with his . He was having outpatient Neurology followup for his Parkinson's at [facility]. He had a fall, suffered left femoral neck fracture and on 05/30/2018, underwent left hip hemiarthroplasty back to [facility]. He then fell there again, suffered a periprosthetic fracture in June, went back to the OR for rewiring of the fracture and added hardware. He was again discharged back, but blood cultures came back MRSA, pseudomonas, Enterococcus and was admitted with Infectious Disease consultation on Zosyn and vancomycin. Daughter believes that he does get a little confused, but she is very clear in her thinking that this was because he was not given his Sinemet the previous night at the correct time. As noted below, he was unable to recognize his daughter as I questioned him and this is partly because of him being hard of hearing, but is much more confused late in the evening, but again the daughter believes that this is just transient and should resolve with proper dosage of the Sinemet. He did not sleep the previous night per nursing report. REVIEW OF SYSTEMS: No suicidal or homicidal ideation. PAST PSYCHIATRIC HISTORY: Noncontributory. According to the daughter, he did not have any memory deficits. PAST MEDICAL HISTORY: In addition to the Orthopedic Surgery noted above, history of Parkinson's, hypertension, valvular heart disease, hyperlipidemia, prostate cancer, BPH, urinary incontinence, hard of hearing. PAST SURGICAL HISTORY: As noted. SOCIAL HISTORY: Lives at home with his . No alcohol or drug abuse history. FAMILY HISTORY: Noncontributory. CURRENT PSYCHOTROPICS: Noncontributory. DRUG ALLERGIES: Negative. MENTAL STATUS EXAMINATION: The patient was lying in bed. He is oriented to himself, hard of hearing, somewhat anxious, restless. Insight, judgment, recent and remote memory, attention, concentration, fund of knowledge poor, consistent with his diagnosis. He was unable to recognize his daughter or tell me the year, the date or any of the orientation questions. IMPRESSION: Delirium due to general medical condition; cognitive disorder, unspecified versus mild cognitive impairment. Rest diagnoses as above. PLAN: I had considered adding low-dose trazodone to help with his sleep, but the daughter is very clear they do not want the addition of any psychotropic or anything to help him sleep. In fact, they do not believe he has any psychiatric problems and do not want any further interventions from a psychiatric standpoint. I would be happy to see him back if requested. Dr. Palomino, thank you for the opportunity to participate in your patient's care. We will follow with you. MAN Lavern FULLER MD DR: ERI/nathaniel JOB#: [id number] / [id number]
[2018-06-28] MEDS: PIPERACILLIN/TAZOBACTAM 3.375 GM in IV NORMAL SALINE 50ML 50 ML IV SCH ×4 (06:02→23:28)
[2018-06-28 06:09] VITALS: BP 137/71
[2018-06-28] MEDS: CARBIDOPA/LEVODOPA 25/100MG TABLET PO SCH ×4 (06:28→17:50)
[2018-06-28] MEDS: POLYVINYL ALCOHOL 1.4% OPHTH SOLUTION 15ML BOTTLE. OU SCH ×2 (08:35→21:36)
[2018-06-28] MEDS: VANCOMYCIN 1.25 GM in IV NORMAL SALINE 250ML 250 ML IV SCH ×2 (08:35→21:36)
[2018-06-28] MEDS: FAMOTIDINE 20 MG/2 ML VIAL IVP SCH ×2 (08:35→21:36)
[2018-06-28] MEDS: LACTOBACILLUS RHAMNOSUS GG 1 CAPSULE. PO SCH ×2 (08:36→21:38)
[2018-06-28] MEDS: DOCUSATE SODIUM 100 MG CAPSULE PO SCH ×2 (08:36→21:38)
[2018-06-28] MEDS: APIXABAN 2.5 MG TABLET PO SCH ×2 (08:36→21:39)
[2018-06-28] MEDS: OXYBUTYNIN CHLORIDE 5 MG TABLET PO SCH ×2 (08:36→21:39)
[2018-06-28] MEDS: FERROUS SULFATE 325 MG TABLET. PO SCH ×2 (08:36→21:38)
[2018-06-28] MEDS: MULTIVITAMIN with MINERAL TABLET. PO SCH (08:37)
[2018-06-28] MEDS: METOPROLOL TART IMMED RELEASE 50 MG TABLET PO SCH ×2 (08:37→21:39)
[2018-06-28] MEDS: SENNOSIDES/DOCUSATE 8.6/50MG TABLET. PO SCH (08:37)
[2018-06-28] MEDS: ASCORBIC ACID 500 MG TABLET PO SCH ×2 (08:37→21:38)
[2018-06-28] MEDS: ACETAMINOPHEN 325 MG TABLET PO PRN (15:27)
[2018-06-28 17:56] VITALS: BP 111/64
[2018-06-28] MEDS: SIMVASTATIN 10 MG TABLET PO SCH (21:38)
[2018-06-28] MEDS: CARBIDOPA/LEVODOPA CR 25/100MG TABLET.SA PO SCH (22:40)
[2018-06-29] MEDS: ACETAMINOPHEN 325 MG TABLET PO PRN ×2 (01:49→22:54)
[2018-06-29 06:12] VITALS: BP 145/75
[2018-06-29] MEDS: PIPERACILLIN/TAZOBACTAM 3.375 GM in IV NORMAL SALINE 50ML 50 ML IV SCH ×4 (06:14→23:27)
[2018-06-29] MEDS: CARBIDOPA/LEVODOPA 25/100MG TABLET PO SCH ×4 (06:15→18:37)
[2018-06-29] MEDS: FAMOTIDINE 20 MG/2 ML VIAL IVP SCH ×2 (09:00→21:38)
[2018-06-29] MEDS: FERROUS SULFATE 325 MG TABLET. PO SCH ×2 (09:00→21:38)
[2018-06-29] MEDS: DOCUSATE SODIUM 100 MG CAPSULE PO SCH ×2 (09:00→21:38)
[2018-06-29] MEDS: SENNOSIDES/DOCUSATE 8.6/50MG TABLET. PO SCH (09:00)
[2018-06-29] MEDS: MULTIVITAMIN with MINERAL TABLET. PO SCH (09:00)
[2018-06-29] MEDS: ASCORBIC ACID 500 MG TABLET PO SCH ×2 (09:00→21:39)
[2018-06-29] MEDS: APIXABAN 2.5 MG TABLET PO SCH ×2 (09:00→21:38)
[2018-06-29] MEDS: METOPROLOL TART IMMED RELEASE 50 MG TABLET PO SCH ×2 (09:00→21:39)
[2018-06-29] MEDS: DEXAMETHASONE 0.1% OPHTH SOLUTION 5ML BOTTLE. OU SCH (09:00)
[2018-06-29] MEDS: VANCOMYCIN 1.25 GM in IV NORMAL SALINE 250ML 250 ML IV SCH ×2 (09:00→21:37)
[2018-06-29] MEDS: OXYBUTYNIN CHLORIDE 5 MG TABLET PO SCH ×2 (09:00→21:38)
[2018-06-29] MEDS: LACTOBACILLUS RHAMNOSUS GG 1 CAPSULE. PO SCH ×2 (09:00→21:38)
[2018-06-29] MEDS: POLYVINYL ALCOHOL 1.4% OPHTH SOLUTION 15ML BOTTLE. OU SCH ×2 (09:00→21:00)
[2018-06-29] MEDS: VANCOMYCIN PER PHARMACY MC PRN (09:29)
[2018-06-29 18:02] VITALS: BP 95/56
[2018-06-29] MEDS: SIMVASTATIN 10 MG TABLET PO SCH (21:39)
[2018-06-29] MEDS: CARBIDOPA/LEVODOPA CR 25/100MG TABLET.SA PO SCH (22:56)
[2018-06-30] MEDS: CARBIDOPA/LEVODOPA 25/100MG TABLET PO SCH ×4 (06:05→18:40)
[2018-06-30] MEDS: PIPERACILLIN/TAZOBACTAM 3.375 GM in IV NORMAL SALINE 50ML 50 ML IV SCH ×4 (06:05→23:46)
[2018-06-30 06:08] VITALS: BP 142/78
[2018-06-30] MEDS: FAMOTIDINE 20 MG/2 ML VIAL IVP SCH ×2 (08:53→21:24)
[2018-06-30] MEDS: VANCOMYCIN 1.25 GM in IV NORMAL SALINE 250ML 250 ML IV SCH ×2 (08:54→21:24)
[2018-06-30] MEDS: POLYVINYL ALCOHOL 1.4% OPHTH SOLUTION 15ML BOTTLE. OU SCH ×2 (08:54→21:25)
[2018-06-30] MEDS: LACTOBACILLUS RHAMNOSUS GG 1 CAPSULE. PO SCH ×2 (08:55→21:25)
[2018-06-30] MEDS: DOCUSATE SODIUM 100 MG CAPSULE PO SCH ×2 (08:55→21:25)
[2018-06-30] MEDS: APIXABAN 2.5 MG TABLET PO SCH ×2 (08:59→21:25)
[2018-06-30] MEDS: OXYBUTYNIN CHLORIDE 5 MG TABLET PO SCH ×2 (08:59→21:25)
[2018-06-30] MEDS: METOPROLOL TART IMMED RELEASE 50 MG TABLET PO SCH ×2 (08:59→21:25)
[2018-06-30] MEDS: FERROUS SULFATE 325 MG TABLET. PO SCH ×2 (08:59→21:25)
[2018-06-30] MEDS: MULTIVITAMIN with MINERAL TABLET. PO SCH (09:00)
[2018-06-30] MEDS: POLYETHYLENE GLYCOL 3350 17 GM PACKET. PO SCH (09:00)
[2018-06-30] MEDS: SENNOSIDES/DOCUSATE 8.6/50MG TABLET. PO SCH (09:00)
[2018-06-30] MEDS: ASCORBIC ACID 500 MG TABLET PO SCH ×2 (09:00→21:25)
[2018-06-30] MEDS: ACETAMINOPHEN 325 MG TABLET PO PRN ×2 (14:19→22:16)
[2018-06-30 18:36] VITALS: BP 126/79
[2018-06-30] MEDS: CARBIDOPA/LEVODOPA CR 25/100MG TABLET.SA PO SCH (22:16)
[2018-06-30] MEDS: SIMVASTATIN 10 MG TABLET PO SCH (22:17)
[2018-07-01] MEDS: PIPERACILLIN/TAZOBACTAM 3.375 GM in IV NORMAL SALINE 50ML 50 ML IV SCH ×3 (05:40→17:47)
[2018-07-01 06:00] VITALS: BP 131/69
[2018-07-01] MEDS: CARBIDOPA/LEVODOPA 25/100MG TABLET PO SCH ×4 (06:07→18:15)
[2018-07-01] MEDS: SENNOSIDES/DOCUSATE 8.6/50MG TABLET. PO SCH (08:14)
[2018-07-01] MEDS: ASCORBIC ACID 500 MG TABLET PO SCH ×2 (08:14→20:21)
[2018-07-01] MEDS: METOPROLOL TART IMMED RELEASE 50 MG TABLET PO SCH ×2 (08:14→20:22)
[2018-07-01] MEDS: LACTOBACILLUS RHAMNOSUS GG 1 CAPSULE. PO SCH ×2 (08:14→20:22)
[2018-07-01] MEDS: OXYBUTYNIN CHLORIDE 5 MG TABLET PO SCH ×2 (08:14→20:21)
[2018-07-01] MEDS: MULTIVITAMIN with MINERAL TABLET. PO SCH (08:14)
[2018-07-01] MEDS: POLYETHYLENE GLYCOL 3350 17 GM PACKET. PO SCH (08:15)
[2018-07-01] MEDS: APIXABAN 2.5 MG TABLET PO SCH ×2 (08:15→20:22)
[2018-07-01] MEDS: DOCUSATE SODIUM 100 MG CAPSULE PO SCH ×2 (08:15→20:22)
[2018-07-01] MEDS: FERROUS SULFATE 325 MG TABLET. PO SCH ×2 (08:15→20:22)
[2018-07-01] MEDS: FAMOTIDINE 20 MG/2 ML VIAL IVP SCH ×2 (08:15→20:22)
[2018-07-01] MEDS: DEXAMETHASONE 0.1% OPHTH SOLUTION 5ML BOTTLE. OU SCH (08:16)
[2018-07-01] MEDS: POLYVINYL ALCOHOL 1.4% OPHTH SOLUTION 15ML BOTTLE. OU SCH ×2 (08:16→20:22)
[2018-07-01 08:46] LABS: CREATININE 0.8 mg/dL (0.7-1.3); GFR 92.5
[2018-07-01 08:52] LABS: VANC TR 19.8 mcg/mL (10.0-20.0)
[2018-07-01] MEDS: VANCOMYCIN 1.25 GM in IV NORMAL SALINE 250ML 250 ML IV SCH (08:56)
--- NOTE | 2018-07-01 09:40 | RAD ---
Portable chest, 07/01/2018: HISTORY: Check PICC placement Comparison is made to a study from 06/22/2018. A right PICC has been inserted extending into the inferior aspect of the superior vena cava. The heart is at the upper limits of normal in size. There is calcific plaquing the aorta. The pulmonary vascularity has improved and is now within normal limits. There are mild linear basilar opacities compatible with atelectasis and/or scarring. The upper lung hernandez are now clear. No definite pleural fluid is seen. IMPRESSION: 1. The right PICC is in satisfactory position. 2. Interval resolution of the previously seen vascular congestion. 3. Mild bibasilar linear atelectasis and/or scarring. Electronically signed by: Adonis Barron MD (07/01/2018 9:37 AM) [facility]
[2018-07-01] MEDS: VANCOMYCIN PER PHARMACY MC PRN (13:20)
[2018-07-01] MEDS ORDERED: ALTEPLASE 2 MG VIAL INT CAT ONE (15:30)
[2018-07-01 17:43] VITALS: BP 119/75
[2018-07-01] MEDS: SIMVASTATIN 10 MG TABLET PO SCH (20:21)
[2018-07-01] MEDS: VANCOMYCIN 1 GM in IV NORMAL SALINE 250ML 250 ML IV SCH (20:23)
[2018-07-01] MEDS: CARBIDOPA/LEVODOPA CR 25/100MG TABLET.SA PO SCH (22:25)
[2018-07-01] MEDS: ACETAMINOPHEN 325 MG TABLET PO PRN (22:25)
[2018-07-02] MEDS: PIPERACILLIN/TAZOBACTAM 3.375 GM in IV NORMAL SALINE 50ML 50 ML IV SCH ×5 (00:20→23:56)
[2018-07-02 05:55] VITALS: BP 153/75
[2018-07-02] MEDS: CARBIDOPA/LEVODOPA 25/100MG TABLET PO SCH ×4 (06:08→17:41)
[2018-07-02] MEDS: DOCUSATE SODIUM 100 MG CAPSULE PO SCH ×2 (09:13→20:52)
[2018-07-02] MEDS: POLYVINYL ALCOHOL 1.4% OPHTH SOLUTION 15ML BOTTLE. OU SCH ×2 (09:13→20:53)
[2018-07-02] MEDS: LACTOBACILLUS RHAMNOSUS GG 1 CAPSULE. PO SCH ×2 (09:13→20:52)
[2018-07-02] MEDS: OXYBUTYNIN CHLORIDE 5 MG TABLET PO SCH ×2 (09:13→20:52)
[2018-07-02] MEDS: VANCOMYCIN 1 GM in IV NORMAL SALINE 250ML 250 ML IV SCH ×2 (09:13→20:53)
[2018-07-02] MEDS: FAMOTIDINE 20 MG/2 ML VIAL IVP SCH ×2 (09:13→20:52)
[2018-07-02] MEDS: METOPROLOL TART IMMED RELEASE 50 MG TABLET PO SCH ×2 (09:14→20:57)
[2018-07-02] MEDS: FERROUS SULFATE 325 MG TABLET. PO SCH ×2 (09:14→20:52)
[2018-07-02] MEDS: APIXABAN 2.5 MG TABLET PO SCH ×2 (09:14→20:52)
[2018-07-02] MEDS: ASCORBIC ACID 500 MG TABLET PO SCH ×2 (09:14→20:52)
[2018-07-02] MEDS: POLYETHYLENE GLYCOL 3350 17 GM PACKET. PO SCH (09:14)
[2018-07-02] MEDS: MULTIVITAMIN with MINERAL TABLET. PO SCH (09:14)
[2018-07-02] MEDS: SENNOSIDES/DOCUSATE 8.6/50MG TABLET. PO SCH (09:14)
[2018-07-02 18:27] VITALS: BP 146/72
[2018-07-02] MEDS: SIMVASTATIN 10 MG TABLET PO SCH (20:52)
[2018-07-02] MEDS: CARBIDOPA/LEVODOPA CR 25/100MG TABLET.SA PO SCH (22:43)
[2018-07-02] MEDS: ACETAMINOPHEN 325 MG TABLET PO PRN (22:43)
[2018-07-03] MEDS: PIPERACILLIN/TAZOBACTAM 3.375 GM in IV NORMAL SALINE 50ML 50 ML IV SCH ×4 (06:04→23:52)
[2018-07-03] MEDS: CARBIDOPA/LEVODOPA 25/100MG TABLET PO SCH ×4 (06:04→18:39)
[2018-07-03 06:07] VITALS: BP 137/72
[2018-07-03] MEDS: FAMOTIDINE 20 MG/2 ML VIAL IVP SCH ×2 (09:00→21:16)
[2018-07-03] MEDS: FERROUS SULFATE 325 MG TABLET. PO SCH ×2 (09:02→21:15)
[2018-07-03] MEDS: POLYVINYL ALCOHOL 1.4% OPHTH SOLUTION 15ML BOTTLE. OU SCH ×2 (09:02→21:15)
[2018-07-03] MEDS: LACTOBACILLUS RHAMNOSUS GG 1 CAPSULE. PO SCH ×2 (09:02→21:15)
[2018-07-03] MEDS: APIXABAN 2.5 MG TABLET PO SCH ×2 (09:02→21:15)
[2018-07-03] MEDS: DOCUSATE SODIUM 100 MG CAPSULE PO SCH ×2 (09:02→21:15)
[2018-07-03] MEDS: OXYBUTYNIN CHLORIDE 5 MG TABLET PO SCH ×2 (09:02→21:15)
[2018-07-03 09:03] LABS: VANC TR 15.6 mcg/mL (10.0-20.0)
[2018-07-03] MEDS: SENNOSIDES/DOCUSATE 8.6/50MG TABLET. PO SCH (09:03)
[2018-07-03] MEDS: MULTIVITAMIN with MINERAL TABLET. PO SCH (09:03)
[2018-07-03] MEDS: ASCORBIC ACID 500 MG TABLET PO SCH ×2 (09:03→21:15)
[2018-07-03] MEDS: METOPROLOL TART IMMED RELEASE 50 MG TABLET PO SCH ×2 (09:03→21:17)
[2018-07-03] MEDS: POLYETHYLENE GLYCOL 3350 17 GM PACKET. PO SCH (09:03)
[2018-07-03] MEDS: VANCOMYCIN 1 GM in IV NORMAL SALINE 250ML 250 ML IV SCH ×2 (09:06→21:19)
[2018-07-03] MEDS: VANCOMYCIN PER PHARMACY MC PRN (09:12)
[2018-07-03 15:56] VITALS: BP 129/75
[2018-07-03 16:48] LABS: HEMATOCRIT 29.3 % (39.0-53.0); HEMOGLOBIN 9.4 g/dL (13.0-17.5); RED BLOOD COUNT 3.29 x10^6/uL (4.30-5.70); RED CELL DISTRIBUTION WIDTH 16.7 % (11.5-14.5); WHITE BLOOD COUNT 8.5 x10^3/uL (4.0-11.0)
[2018-07-03 17:03] LABS: ALBUMIN 2.7 g/dL (3.4-5.0); ALBUMIN/GLOBULIN RATIO 0.7 (1.0-1.7); CALCIUM 8.9 mg/dL (8.5-10.1); CREATININE 0.9 mg/dL (0.7-1.3); GFR 80.8; POTASSIUM 3.9 mmol/L (3.5-5.1); TOTAL BILIRUBIN 0.4 mg/dL (0.2-1.0); TOTAL PROTEIN 6.5 g/dL (6.4-8.2)
--- NOTE | 2018-07-03 17:17 | PN ---
DATE: 07/03/2018 SUBJECTIVE: The patient was seen today. The nursing staff reported that the patient seems to be very confused. He did very well yesterday and has walked with physical therapist all the way to the dining room and back. This morning, he was also doing fine, but this afternoon, he seemed to be very tired, very confused, questioning him, he said that he is old and he is thinking about quitting. He denied any chest pain or shortness of breath. He denied any pain in his left hip joint. He denied any chills, rigors or fever. PHYSICAL EXAMINATION: GENERAL: When I examined him, he looked well and was clearly, in no apparent respiratory distress, pale. No jaundice, cyanosis, or thyromegaly. No jugular venous distention. No limb edema. VITAL SIGNS: His heart rate was 78, blood pressure was 137/72, temperature was 98.1, respiratory rate was 18 and oxygen saturation was 93%. HEAD, EYES, EARS, NOSE AND THROAT: Showed normocephalic, atraumatic. NECK: Supple. HEART: Showed normal first and second sounds. No gallop, rub or murmur. CHEST: Clear to auscultation. No crepitation or rhonchi. ABDOMEN: Distended, soft, nontender. NEUROLOGIC: He is awake, alert, responding at times appropriately. He has mask face with reduced blinking consistent with Parkinson's disease, but all his cranial nerves are intact. He moves his upper extremities without difficulty. Examination of lower extremities, not done. No clubbing, cyanosis or edema. LABORATORY DATA: His most recent lab work showed his creatinine was 0.8 and estimated GFR was 92 mL per minute. His most recent hemoglobin was 8.3, hematocrit 25 with normal white cell count and platelets. His vancomycin trough level this morning was 15.6. ASSESSMENT: 1. Left hip fracture, status post left hip hemiarthroplasty. 2. 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 Other medical problems include Parkinson's disease, hypertension, valvular heart disease, hyperlipidemia, prostate cancer, benign prostatic hypertrophy, urinary incontinence. PLAN: My plan is to check his lab work including CBC and CMP. I reviewed all his medications seem to be all within acceptable and appropriate. He obviously has any anemia and/or metabolic abnormality to explain his altered mental status this afternoon. ANA FINNEGAN MD DR: HÉCTOR/nathaniel JOB#: [id number] / [id number]
[2018-07-03 18:12] VITALS: BP 103/60
[2018-07-03] MEDS: SIMVASTATIN 10 MG TABLET PO SCH (21:15)
[2018-07-03] MEDS: CARBIDOPA/LEVODOPA CR 25/100MG TABLET.SA PO SCH (22:27)
[2018-07-03] MEDS: ACETAMINOPHEN 325 MG TABLET PO PRN (22:27)
[2018-07-04 06:17] VITALS: BP 154/72
[2018-07-04] MEDS: PIPERACILLIN/TAZOBACTAM 3.375 GM in IV NORMAL SALINE 50ML 50 ML IV SCH ×3 (06:19→18:04)
[2018-07-04] MEDS: CARBIDOPA/LEVODOPA 25/100MG TABLET PO SCH ×4 (06:19→18:04)
[2018-07-04] MEDS: VANCOMYCIN 1 GM in IV NORMAL SALINE 250ML 250 ML IV SCH ×2 (09:03→20:43)
[2018-07-04] MEDS: OXYBUTYNIN CHLORIDE 5 MG TABLET PO SCH ×2 (09:03→20:29)
[2018-07-04] MEDS: ASCORBIC ACID 500 MG TABLET PO SCH ×2 (09:03→20:37)
[2018-07-04] MEDS: APIXABAN 2.5 MG TABLET PO SCH ×2 (09:03→20:37)
[2018-07-04] MEDS: POLYETHYLENE GLYCOL 3350 17 GM PACKET. PO SCH (09:03)
[2018-07-04] MEDS: DOCUSATE SODIUM 100 MG CAPSULE PO SCH ×2 (09:03→20:36)
[2018-07-04] MEDS: LACTOBACILLUS RHAMNOSUS GG 1 CAPSULE. PO SCH ×2 (09:03→20:37)
[2018-07-04] MEDS: POLYVINYL ALCOHOL 1.4% OPHTH SOLUTION 15ML BOTTLE. OU SCH ×2 (09:04→20:38)
[2018-07-04] MEDS: SENNOSIDES/DOCUSATE 8.6/50MG TABLET. PO SCH (09:04)
[2018-07-04] MEDS: FAMOTIDINE 20 MG/2 ML VIAL IVP SCH ×2 (09:04→20:37)
[2018-07-04] MEDS: FERROUS SULFATE 325 MG TABLET. PO SCH ×2 (09:04→20:29)
[2018-07-04] MEDS: MULTIVITAMIN with MINERAL TABLET. PO SCH (09:04)
[2018-07-04] MEDS: DEXAMETHASONE 0.1% OPHTH SOLUTION 5ML BOTTLE. OU SCH (09:04)
[2018-07-04] MEDS: METOPROLOL TART IMMED RELEASE 50 MG TABLET PO SCH ×2 (09:04→20:37)
[2018-07-04 19:53] VITALS: BP 123/74
[2018-07-04] MEDS: SIMVASTATIN 10 MG TABLET PO SCH (20:37)
[2018-07-04] MEDS: CARBIDOPA/LEVODOPA CR 25/100MG TABLET.SA PO SCH (20:37)
[2018-07-04] MEDS: ACETAMINOPHEN 325 MG TABLET PO PRN (22:17)
[2018-07-05] MEDS: PIPERACILLIN/TAZOBACTAM 3.375 GM in IV NORMAL SALINE 50ML 50 ML IV SCH ×5 (00:08→23:31)
[2018-07-05] MEDS: CARBIDOPA/LEVODOPA 25/100MG TABLET PO SCH ×4 (06:32→18:40)
[2018-07-05 06:51] VITALS: BP 157/79
[2018-07-05] MEDS: POLYVINYL ALCOHOL 1.4% OPHTH SOLUTION 15ML BOTTLE. OU SCH ×2 (09:00→19:44)
[2018-07-05] MEDS: VANCOMYCIN 1 GM in IV NORMAL SALINE 250ML 250 ML IV SCH ×2 (09:18→19:43)
[2018-07-05] MEDS: FAMOTIDINE 20 MG/2 ML VIAL IVP SCH ×2 (09:18→19:42)
[2018-07-05] MEDS: POLYETHYLENE GLYCOL 3350 17 GM PACKET. PO SCH (09:19)
[2018-07-05] MEDS: FERROUS SULFATE 325 MG TABLET. PO SCH ×2 (09:20→19:42)
[2018-07-05] MEDS: LACTOBACILLUS RHAMNOSUS GG 1 CAPSULE. PO SCH ×2 (09:20→19:43)
[2018-07-05] MEDS: ASCORBIC ACID 500 MG TABLET PO SCH ×2 (09:20→19:42)
[2018-07-05] MEDS: DOCUSATE SODIUM 100 MG CAPSULE PO SCH ×2 (09:20→19:42)
[2018-07-05] MEDS: MULTIVITAMIN with MINERAL TABLET. PO SCH (09:20)
[2018-07-05] MEDS: APIXABAN 2.5 MG TABLET PO SCH ×2 (09:20→19:42)
[2018-07-05] MEDS: OXYBUTYNIN CHLORIDE 5 MG TABLET PO SCH ×2 (09:20→19:42)
[2018-07-05] MEDS: METOPROLOL TART IMMED RELEASE 50 MG TABLET PO SCH ×2 (09:20→19:43)
[2018-07-05] MEDS: SENNOSIDES/DOCUSATE 8.6/50MG TABLET. PO SCH (09:21)
[2018-07-05 18:36] VITALS: BP 106/67
[2018-07-05] MEDS: SIMVASTATIN 10 MG TABLET PO SCH (19:43)
[2018-07-05] MEDS: CARBIDOPA/LEVODOPA CR 25/100MG TABLET.SA PO SCH (22:04)
[2018-07-05] MEDS: ACETAMINOPHEN 325 MG TABLET PO PRN (22:05)
[2018-07-06 05:30] VITALS: BP 145/73
[2018-07-06] MEDS: PIPERACILLIN/TAZOBACTAM 3.375 GM in IV NORMAL SALINE 50ML 50 ML IV SCH ×3 (05:44→18:04)
[2018-07-06] MEDS: CARBIDOPA/LEVODOPA 25/100MG TABLET PO SCH ×4 (05:45→18:02)
[2018-07-06] MEDS: DEXAMETHASONE 0.1% OPHTH SOLUTION 5ML BOTTLE. OU SCH (09:03)
[2018-07-06] MEDS: POLYETHYLENE GLYCOL 3350 17 GM PACKET. PO SCH (09:03)
[2018-07-06] MEDS: METOPROLOL TART IMMED RELEASE 50 MG TABLET PO SCH ×2 (09:04→21:11)
[2018-07-06] MEDS: APIXABAN 2.5 MG TABLET PO SCH ×2 (09:04→21:11)
[2018-07-06] MEDS: OXYBUTYNIN CHLORIDE 5 MG TABLET PO SCH ×2 (09:04→21:11)
[2018-07-06] MEDS: ASCORBIC ACID 500 MG TABLET PO SCH ×2 (09:04→21:12)
[2018-07-06] MEDS: DOCUSATE SODIUM 100 MG CAPSULE PO SCH ×2 (09:04→21:12)
[2018-07-06] MEDS: SENNOSIDES/DOCUSATE 8.6/50MG TABLET. PO SCH (09:04)
[2018-07-06] MEDS: FAMOTIDINE 20 MG/2 ML VIAL IVP SCH ×2 (09:04→21:10)
[2018-07-06] MEDS: LACTOBACILLUS RHAMNOSUS GG 1 CAPSULE. PO SCH ×2 (09:04→21:11)
[2018-07-06] MEDS: POLYVINYL ALCOHOL 1.4% OPHTH SOLUTION 15ML BOTTLE. OU SCH ×2 (09:04→21:14)
[2018-07-06] MEDS: MULTIVITAMIN with MINERAL TABLET. PO SCH (09:04)
[2018-07-06] MEDS: FERROUS SULFATE 325 MG TABLET. PO SCH ×2 (09:04→21:11)
[2018-07-06] MEDS: VANCOMYCIN 1 GM in IV NORMAL SALINE 250ML 250 ML IV SCH ×2 (09:53→21:10)
[2018-07-06 18:43] VITALS: BP 122/73
[2018-07-06] MEDS: SIMVASTATIN 10 MG TABLET PO SCH (21:12)
[2018-07-06] MEDS: CARBIDOPA/LEVODOPA CR 25/100MG TABLET.SA PO SCH (22:18)
[2018-07-06] MEDS: ACETAMINOPHEN 325 MG TABLET PO PRN (22:18)
[2018-07-07] MEDS: PIPERACILLIN/TAZOBACTAM 3.375 GM in IV NORMAL SALINE 50ML 50 ML IV SCH ×5 (00:03→23:37)
[2018-07-07 05:05] VITALS: BP 155/82
[2018-07-07] MEDS: CARBIDOPA/LEVODOPA 25/100MG TABLET PO SCH ×4 (06:06→18:24)
[2018-07-07] MEDS: MULTIVITAMIN with MINERAL TABLET. PO SCH (08:11)
[2018-07-07] MEDS: SENNOSIDES/DOCUSATE 8.6/50MG TABLET. PO SCH (08:11)
[2018-07-07] MEDS: LACTOBACILLUS RHAMNOSUS GG 1 CAPSULE. PO SCH ×2 (08:11→21:43)
[2018-07-07] MEDS: DOCUSATE SODIUM 100 MG CAPSULE PO SCH ×2 (08:12→21:43)
[2018-07-07] MEDS: METOPROLOL TART IMMED RELEASE 50 MG TABLET PO SCH ×2 (08:12→21:45)
[2018-07-07] MEDS: ASCORBIC ACID 500 MG TABLET PO SCH ×2 (08:12→21:44)
[2018-07-07] MEDS: FERROUS SULFATE 325 MG TABLET. PO SCH ×2 (08:12→21:44)
[2018-07-07] MEDS: OXYBUTYNIN CHLORIDE 5 MG TABLET PO SCH ×2 (08:12→21:43)
[2018-07-07] MEDS: POLYETHYLENE GLYCOL 3350 17 GM PACKET. PO SCH (08:14)
[2018-07-07] MEDS: FAMOTIDINE 20 MG/2 ML VIAL IVP SCH ×2 (08:14→21:51)
[2018-07-07] MEDS: APIXABAN 2.5 MG TABLET PO SCH ×2 (08:14→21:50)
[2018-07-07] MEDS: VANCOMYCIN 1 GM in IV NORMAL SALINE 250ML 250 ML IV SCH ×2 (08:15→21:42)
[2018-07-07] MEDS: POLYVINYL ALCOHOL 1.4% OPHTH SOLUTION 15ML BOTTLE. OU SCH ×2 (08:30→21:51)
[2018-07-07 18:12] VITALS: BP 116/71
[2018-07-07] MEDS: SIMVASTATIN 10 MG TABLET PO SCH (21:44)
[2018-07-07] MEDS: ACETAMINOPHEN 325 MG TABLET PO PRN (22:41)
[2018-07-07] MEDS: CARBIDOPA/LEVODOPA CR 25/100MG TABLET.SA PO SCH (22:41)
[2018-07-08 06:00] VITALS: BP 174/94
[2018-07-08] MEDS: CARBIDOPA/LEVODOPA 25/100MG TABLET PO SCH ×4 (06:06→17:23)
[2018-07-08] MEDS: PIPERACILLIN/TAZOBACTAM 3.375 GM in IV NORMAL SALINE 50ML 50 ML IV SCH ×4 (06:07→23:35)
[2018-07-08] MEDS: SENNOSIDES/DOCUSATE 8.6/50MG TABLET. PO SCH (09:00)
[2018-07-08] MEDS: POLYETHYLENE GLYCOL 3350 17 GM PACKET. PO SCH (09:00)
[2018-07-08] MEDS: DOCUSATE SODIUM 100 MG CAPSULE PO SCH ×2 (09:23→20:49)
[2018-07-08] MEDS: VANCOMYCIN 1 GM in IV NORMAL SALINE 250ML 250 ML IV SCH ×2 (09:23→20:48)
[2018-07-08] MEDS: FAMOTIDINE 20 MG/2 ML VIAL IVP SCH ×2 (09:23→20:46)
[2018-07-08] MEDS: METOPROLOL TART IMMED RELEASE 50 MG TABLET PO SCH ×2 (09:24→20:49)
[2018-07-08] MEDS: MULTIVITAMIN with MINERAL TABLET. PO SCH (09:24)
[2018-07-08] MEDS: LACTOBACILLUS RHAMNOSUS GG 1 CAPSULE. PO SCH ×2 (09:24→20:48)
[2018-07-08] MEDS: OXYBUTYNIN CHLORIDE 5 MG TABLET PO SCH ×2 (09:24→20:49)
[2018-07-08] MEDS: APIXABAN 2.5 MG TABLET PO SCH ×2 (09:24→20:49)
[2018-07-08] MEDS: ASCORBIC ACID 500 MG TABLET PO SCH ×2 (09:25→20:49)
[2018-07-08] MEDS: POLYVINYL ALCOHOL 1.4% OPHTH SOLUTION 15ML BOTTLE. OU SCH ×2 (09:25→20:48)
[2018-07-08] MEDS: DEXAMETHASONE 0.1% OPHTH SOLUTION 5ML BOTTLE. OU SCH (09:25)
[2018-07-08] MEDS: FERROUS SULFATE 325 MG TABLET. PO SCH ×2 (11:26→20:49)
[2018-07-08 18:00] VITALS: BP 105/63
[2018-07-08] MEDS: SIMVASTATIN 10 MG TABLET PO SCH (20:49)
[2018-07-08] MEDS: ACETAMINOPHEN 325 MG TABLET PO PRN (22:08)
[2018-07-08] MEDS: CARBIDOPA/LEVODOPA CR 25/100MG TABLET.SA PO SCH (22:08)
[2018-07-09 05:44] VITALS: BP 174/73
[2018-07-09] MEDS: CARBIDOPA/LEVODOPA 25/100MG TABLET PO SCH ×4 (06:30→18:18)
[2018-07-09] MEDS: PIPERACILLIN/TAZOBACTAM 3.375 GM in IV NORMAL SALINE 50ML 50 ML IV SCH ×3 (06:30→18:18)
[2018-07-09] MEDS: FERROUS SULFATE 325 MG TABLET. PO SCH ×2 (08:52→21:13)
[2018-07-09] MEDS: LACTOBACILLUS RHAMNOSUS GG 1 CAPSULE. PO SCH ×2 (08:52→21:13)
[2018-07-09] MEDS: POLYETHYLENE GLYCOL 3350 17 GM PACKET. PO SCH (08:52)
[2018-07-09] MEDS: METOPROLOL TART IMMED RELEASE 50 MG TABLET PO SCH ×2 (08:52→21:13)
[2018-07-09] MEDS: SENNOSIDES/DOCUSATE 8.6/50MG TABLET. PO SCH (08:53)
[2018-07-09] MEDS: DOCUSATE SODIUM 100 MG CAPSULE PO SCH ×2 (08:53→21:00)
[2018-07-09] MEDS: ASCORBIC ACID 500 MG TABLET PO SCH ×2 (08:53→21:13)
[2018-07-09] MEDS: FAMOTIDINE 20 MG/2 ML VIAL IVP SCH ×2 (08:53→21:12)
[2018-07-09] MEDS: OXYBUTYNIN CHLORIDE 5 MG TABLET PO SCH ×2 (08:53→21:13)
[2018-07-09] MEDS: MULTIVITAMIN with MINERAL TABLET. PO SCH (08:53)
[2018-07-09] MEDS: APIXABAN 2.5 MG TABLET PO SCH ×2 (08:53→21:13)
[2018-07-09] MEDS: VANCOMYCIN 1 GM in IV NORMAL SALINE 250ML 250 ML IV SCH ×2 (08:54→21:12)
[2018-07-09] MEDS: POLYVINYL ALCOHOL 1.4% OPHTH SOLUTION 15ML BOTTLE. OU SCH ×2 (08:54→21:00)
[2018-07-09 18:40] VITALS: BP 123/68
[2018-07-09] MEDS: SIMVASTATIN 10 MG TABLET PO SCH (21:13)
[2018-07-09] MEDS: ACETAMINOPHEN 325 MG TABLET PO PRN (22:39)
[2018-07-09] MEDS: CARBIDOPA/LEVODOPA CR 25/100MG TABLET.SA PO SCH (22:39)
[2018-07-10] MEDS: PIPERACILLIN/TAZOBACTAM 3.375 GM in IV NORMAL SALINE 50ML 50 ML IV SCH ×4 (00:16→18:13)
[2018-07-10] MEDS: CARBIDOPA/LEVODOPA 25/100MG TABLET PO SCH ×4 (06:05→18:14)
[2018-07-10 06:28] VITALS: BP 162/82
[2018-07-10] MEDS: OXYBUTYNIN CHLORIDE 5 MG TABLET PO SCH ×2 (08:43→21:37)
[2018-07-10] MEDS: LACTOBACILLUS RHAMNOSUS GG 1 CAPSULE. PO SCH ×2 (08:43→21:37)
[2018-07-10] MEDS: MULTIVITAMIN with MINERAL TABLET. PO SCH (08:43)
[2018-07-10] MEDS: FAMOTIDINE 20 MG/2 ML VIAL IVP SCH ×2 (08:43→21:37)
[2018-07-10] MEDS: APIXABAN 2.5 MG TABLET PO SCH ×2 (08:43→21:38)
[2018-07-10] MEDS: ASCORBIC ACID 500 MG TABLET PO SCH ×2 (08:43→21:38)
[2018-07-10] MEDS: METOPROLOL TART IMMED RELEASE 50 MG TABLET PO SCH ×2 (08:44→21:40)
[2018-07-10] MEDS: POLYVINYL ALCOHOL 1.4% OPHTH SOLUTION 15ML BOTTLE. OU SCH ×2 (08:44→21:40)
[2018-07-10] MEDS: SENNOSIDES/DOCUSATE 8.6/50MG TABLET. PO SCH (08:45)
[2018-07-10] MEDS: POLYETHYLENE GLYCOL 3350 17 GM PACKET. PO SCH (08:45)
[2018-07-10] MEDS: DOCUSATE SODIUM 100 MG CAPSULE PO SCH ×2 (08:45→21:40)
[2018-07-10] MEDS: VANCOMYCIN 1 GM in IV NORMAL SALINE 250ML 250 ML IV SCH ×2 (08:58→21:37)
[2018-07-10 09:08] LABS: VANC TR 14.6 mcg/mL (10.0-20.0)
[2018-07-10] MEDS: VANCOMYCIN PER PHARMACY MC PRN (09:43)
[2018-07-10] MEDS: FERROUS SULFATE 325 MG TABLET. PO SCH ×2 (11:51→21:37)
[2018-07-10 18:33] VITALS: BP 124/72
[2018-07-10] MEDS: SIMVASTATIN 10 MG TABLET PO SCH (21:37)
[2018-07-10] MEDS: ACETAMINOPHEN 325 MG TABLET PO PRN (22:41)
[2018-07-10] MEDS: CARBIDOPA/LEVODOPA CR 25/100MG TABLET.SA PO SCH (22:41)
[2018-07-11] MEDS: PIPERACILLIN/TAZOBACTAM 3.375 GM in IV NORMAL SALINE 50ML 50 ML IV SCH ×5 (00:09→23:56)
[2018-07-11] MEDS: CARBIDOPA/LEVODOPA 25/100MG TABLET PO SCH ×4 (05:36→18:26)
[2018-07-11 06:13] VITALS: BP 135/74
[2018-07-11] MEDS: VANCOMYCIN 1 GM in IV NORMAL SALINE 250ML 250 ML IV SCH ×2 (11:59→21:28)
[2018-07-11] MEDS: FAMOTIDINE 20 MG/2 ML VIAL IVP SCH ×2 (11:59→21:28)
[2018-07-11] MEDS: POLYVINYL ALCOHOL 1.4% OPHTH SOLUTION 15ML BOTTLE. OU SCH ×2 (11:59→21:29)
[2018-07-11] MEDS: OXYBUTYNIN CHLORIDE 5 MG TABLET PO SCH ×2 (12:00→21:28)
[2018-07-11] MEDS: DOCUSATE SODIUM 100 MG CAPSULE PO SCH ×3 (12:00→21:28)
[2018-07-11] MEDS: DEXAMETHASONE 0.1% OPHTH SOLUTION 5ML BOTTLE. OU SCH (12:00)
[2018-07-11] MEDS: LACTOBACILLUS RHAMNOSUS GG 1 CAPSULE. PO SCH ×2 (12:00→21:28)
[2018-07-11] MEDS: APIXABAN 2.5 MG TABLET PO SCH ×2 (12:00→21:28)
[2018-07-11] MEDS: METOPROLOL TART IMMED RELEASE 50 MG TABLET PO SCH ×2 (12:01→21:28)
[2018-07-11] MEDS: FERROUS SULFATE 325 MG TABLET. PO SCH ×2 (12:01→21:28)
[2018-07-11] MEDS: POLYETHYLENE GLYCOL 3350 17 GM PACKET. PO SCH (12:01)
[2018-07-11] MEDS: MULTIVITAMIN with MINERAL TABLET. PO SCH (12:02)
[2018-07-11] MEDS: SENNOSIDES/DOCUSATE 8.6/50MG TABLET. PO SCH (12:02)
[2018-07-11] MEDS: ASCORBIC ACID 500 MG TABLET PO SCH ×2 (12:02→21:28)
[2018-07-11 18:23] VITALS: BP 112/69
[2018-07-11] MEDS: SIMVASTATIN 10 MG TABLET PO SCH (21:29)
[2018-07-11] MEDS: CARBIDOPA/LEVODOPA CR 25/100MG TABLET.SA PO SCH (22:26)
[2018-07-11] MEDS: ACETAMINOPHEN 325 MG TABLET PO PRN (22:27)
[2018-07-12] MEDS: PIPERACILLIN/TAZOBACTAM 3.375 GM in IV NORMAL SALINE 50ML 50 ML IV SCH ×4 (05:56→23:23)
[2018-07-12] MEDS: CARBIDOPA/LEVODOPA 25/100MG TABLET PO SCH ×4 (06:25→18:28)
[2018-07-12 06:40] VITALS: BP 111/69
[2018-07-12] MEDS: VANCOMYCIN 1 GM in IV NORMAL SALINE 250ML 250 ML IV SCH ×2 (08:52→22:25)
[2018-07-12] MEDS: POLYVINYL ALCOHOL 1.4% OPHTH SOLUTION 15ML BOTTLE. OU SCH ×2 (08:56→22:25)
[2018-07-12] MEDS: FAMOTIDINE 20 MG/2 ML VIAL IVP SCH ×2 (08:56→22:21)
[2018-07-12] MEDS: LACTOBACILLUS RHAMNOSUS GG 1 CAPSULE. PO SCH ×2 (08:56→22:15)
[2018-07-12] MEDS: APIXABAN 2.5 MG TABLET PO SCH ×2 (08:57→22:15)
[2018-07-12] MEDS: FERROUS SULFATE 325 MG TABLET. PO SCH ×2 (08:57→22:16)
[2018-07-12] MEDS: OXYBUTYNIN CHLORIDE 5 MG TABLET PO SCH ×2 (08:57→22:19)
[2018-07-12] MEDS: METOPROLOL TART IMMED RELEASE 50 MG TABLET PO SCH ×2 (08:58→22:15)
[2018-07-12] MEDS: ASCORBIC ACID 500 MG TABLET PO SCH ×2 (08:59→22:14)
[2018-07-12] MEDS: MULTIVITAMIN with MINERAL TABLET. PO SCH (08:59)
[2018-07-12] MEDS: SENNOSIDES/DOCUSATE 8.6/50MG TABLET. PO SCH (08:59)
[2018-07-12] MEDS: DOCUSATE SODIUM 100 MG CAPSULE PO SCH ×2 (09:00→22:17)
[2018-07-12] MEDS: POLYETHYLENE GLYCOL 3350 17 GM PACKET. PO SCH (09:00)
[2018-07-12 18:23] VITALS: BP 129/72
[2018-07-12] MEDS: SIMVASTATIN 10 MG TABLET PO SCH (22:16)
[2018-07-12] MEDS: CARBIDOPA/LEVODOPA CR 25/100MG TABLET.SA PO SCH (22:20)
[2018-07-13 05:19] VITALS: BP 137/70
[2018-07-13] MEDS: PIPERACILLIN/TAZOBACTAM 3.375 GM in IV NORMAL SALINE 50ML 50 ML IV SCH ×3 (06:00→18:26)
[2018-07-13] MEDS: CARBIDOPA/LEVODOPA 25/100MG TABLET PO SCH ×4 (06:43→18:27)
[2018-07-13] MEDS: METOPROLOL TART IMMED RELEASE 50 MG TABLET PO SCH ×2 (08:03→21:04)
[2018-07-13] MEDS: FERROUS SULFATE 325 MG TABLET. PO SCH ×2 (08:03→21:05)
[2018-07-13] MEDS: MULTIVITAMIN with MINERAL TABLET. PO SCH (08:03)
[2018-07-13] MEDS: OXYBUTYNIN CHLORIDE 5 MG TABLET PO SCH ×2 (08:03→21:04)
[2018-07-13] MEDS: LACTOBACILLUS RHAMNOSUS GG 1 CAPSULE. PO SCH ×2 (08:04→21:25)
[2018-07-13] MEDS: ASCORBIC ACID 500 MG TABLET PO SCH ×2 (08:04→21:04)
[2018-07-13] MEDS: APIXABAN 2.5 MG TABLET PO SCH ×2 (08:04→21:04)
[2018-07-13] MEDS: POLYETHYLENE GLYCOL 3350 17 GM PACKET. PO SCH (08:05)
[2018-07-13] MEDS: DOCUSATE SODIUM 100 MG CAPSULE PO SCH ×2 (08:05→21:03)
[2018-07-13] MEDS: SENNOSIDES/DOCUSATE 8.6/50MG TABLET. PO SCH (08:05)
[2018-07-13] MEDS: FAMOTIDINE 20 MG TABLET PO SCH ×2 (08:42→21:04)
[2018-07-13] MEDS: DEXAMETHASONE 0.1% OPHTH SOLUTION 5ML BOTTLE. OU SCH (08:42)
[2018-07-13] MEDS: POLYVINYL ALCOHOL 1.4% OPHTH SOLUTION 15ML BOTTLE. OU SCH ×2 (08:42→21:05)
[2018-07-13] MEDS: VANCOMYCIN 1 GM in IV NORMAL SALINE 250ML 250 ML IV SCH ×2 (08:42→21:07)
[2018-07-13 18:20] VITALS: BP 118/68
[2018-07-13] MEDS: SIMVASTATIN 10 MG TABLET PO SCH (21:04)
[2018-07-13] MEDS: CARBIDOPA/LEVODOPA CR 25/100MG TABLET.SA PO SCH (22:23)
[2018-07-14] MEDS: PIPERACILLIN/TAZOBACTAM 3.375 GM in IV NORMAL SALINE 50ML 50 ML IV SCH ×4 (01:14→17:52)
[2018-07-14 05:52] VITALS: BP 168/81
[2018-07-14] MEDS: CARBIDOPA/LEVODOPA 25/100MG TABLET PO SCH ×4 (06:18→18:38)
[2018-07-14] MEDS: DOCUSATE SODIUM 100 MG CAPSULE PO SCH ×2 (08:19→20:29)
[2018-07-14] MEDS: POLYVINYL ALCOHOL 1.4% OPHTH SOLUTION 15ML BOTTLE. OU SCH ×2 (08:19→20:27)
[2018-07-14] MEDS: APIXABAN 2.5 MG TABLET PO SCH ×2 (08:20→20:30)
[2018-07-14] MEDS: OXYBUTYNIN CHLORIDE 5 MG TABLET PO SCH ×2 (08:20→20:30)
[2018-07-14] MEDS: LACTOBACILLUS RHAMNOSUS GG 1 CAPSULE. PO SCH ×2 (08:20→20:29)
[2018-07-14] MEDS: POLYETHYLENE GLYCOL 3350 17 GM PACKET. PO SCH (08:21)
[2018-07-14] MEDS: FERROUS SULFATE 325 MG TABLET. PO SCH ×2 (08:21→20:29)
[2018-07-14] MEDS: METOPROLOL TART IMMED RELEASE 50 MG TABLET PO SCH ×2 (08:21→20:29)
[2018-07-14] MEDS: FAMOTIDINE 20 MG TABLET PO SCH ×2 (08:22→20:29)
[2018-07-14] MEDS: SENNOSIDES/DOCUSATE 8.6/50MG TABLET. PO SCH (08:22)
[2018-07-14] MEDS: ASCORBIC ACID 500 MG TABLET PO SCH ×2 (08:22→20:30)
[2018-07-14] MEDS: MULTIVITAMIN with MINERAL TABLET. PO SCH (08:22)
[2018-07-14] MEDS: VANCOMYCIN 1 GM in IV NORMAL SALINE 250ML 250 ML IV SCH ×2 (09:15→20:28)
[2018-07-14 18:15] VITALS: BP 120/71
[2018-07-14] MEDS: SIMVASTATIN 10 MG TABLET PO SCH (20:30)
[2018-07-14] MEDS: ACETAMINOPHEN 325 MG TABLET PO PRN (22:22)
[2018-07-14] MEDS: CARBIDOPA/LEVODOPA CR 25/100MG TABLET.SA PO SCH (22:22)
[2018-07-15] MEDS: PIPERACILLIN/TAZOBACTAM 3.375 GM in IV NORMAL SALINE 50ML 50 ML IV SCH ×5 (00:20→23:41)
[2018-07-15] MEDS: CARBIDOPA/LEVODOPA 25/100MG TABLET PO SCH ×4 (06:20→17:42)
[2018-07-15 06:25] VITALS: BP 105/73
[2018-07-15] MEDS: POLYVINYL ALCOHOL 1.4% OPHTH SOLUTION 15ML BOTTLE. OU SCH ×2 (09:00→20:22)
[2018-07-15] MEDS: MULTIVITAMIN with MINERAL TABLET. PO SCH (09:00)
[2018-07-15] MEDS: METOPROLOL TART IMMED RELEASE 50 MG TABLET PO SCH ×2 (09:00→20:17)
[2018-07-15] MEDS: DEXAMETHASONE 0.1% OPHTH SOLUTION 5ML BOTTLE. OU SCH (09:00)
[2018-07-15] MEDS: ASCORBIC ACID 500 MG TABLET PO SCH ×2 (09:00→20:17)
[2018-07-15] MEDS: POLYETHYLENE GLYCOL 3350 17 GM PACKET. PO SCH (09:00)
[2018-07-15] MEDS: LACTOBACILLUS RHAMNOSUS GG 1 CAPSULE. PO SCH ×2 (09:00→20:31)
[2018-07-15] MEDS: FERROUS SULFATE 325 MG TABLET. PO SCH ×2 (09:00→20:17)
[2018-07-15] MEDS: SENNOSIDES/DOCUSATE 8.6/50MG TABLET. PO SCH (09:00)
[2018-07-15] MEDS: OXYBUTYNIN CHLORIDE 5 MG TABLET PO SCH ×2 (09:00→20:18)
[2018-07-15] MEDS: DOCUSATE SODIUM 100 MG CAPSULE PO SCH ×2 (09:00→20:31)
[2018-07-15] MEDS: FAMOTIDINE 20 MG TABLET PO SCH ×2 (09:00→20:17)
[2018-07-15] MEDS: APIXABAN 2.5 MG TABLET PO SCH ×2 (09:00→20:18)
[2018-07-15 11:42] LABS: VANC TR 13.5 mcg/mL (10.0-20.0)
[2018-07-15] MEDS: VANCOMYCIN 1 GM in IV NORMAL SALINE 250ML 250 ML IV SCH ×2 (11:58→20:22)
[2018-07-15 17:56] VITALS: BP 115/70
[2018-07-15] MEDS: SIMVASTATIN 10 MG TABLET PO SCH (20:17)
[2018-07-15] MEDS: ACETAMINOPHEN 325 MG TABLET PO PRN (22:25)
[2018-07-15] MEDS: CARBIDOPA/LEVODOPA CR 25/100MG TABLET.SA PO SCH (22:25)
[2018-07-16] MEDS: PIPERACILLIN/TAZOBACTAM 3.375 GM in IV NORMAL SALINE 50ML 50 ML IV SCH ×4 (05:58→23:56)
[2018-07-16] MEDS: CARBIDOPA/LEVODOPA 25/100MG TABLET PO SCH ×4 (05:58→18:28)
[2018-07-16 06:08] VITALS: BP 168/81
[2018-07-16] MEDS: FAMOTIDINE 20 MG TABLET PO SCH ×2 (08:50→20:57)
[2018-07-16] MEDS: MULTIVITAMIN with MINERAL TABLET. PO SCH (08:50)
[2018-07-16] MEDS: LACTOBACILLUS RHAMNOSUS GG 1 CAPSULE. PO SCH ×2 (08:50→20:57)
[2018-07-16] MEDS: ASCORBIC ACID 500 MG TABLET PO SCH ×2 (08:50→20:57)
[2018-07-16] MEDS: APIXABAN 2.5 MG TABLET PO SCH ×2 (08:50→20:57)
[2018-07-16] MEDS: OXYBUTYNIN CHLORIDE 5 MG TABLET PO SCH ×2 (08:51→20:57)
[2018-07-16] MEDS: METOPROLOL TART IMMED RELEASE 50 MG TABLET PO SCH ×2 (08:51→20:56)
[2018-07-16] MEDS: POLYETHYLENE GLYCOL 3350 17 GM PACKET. PO SCH (09:00)
[2018-07-16] MEDS: DOCUSATE SODIUM 100 MG CAPSULE PO SCH ×2 (09:00→20:57)
[2018-07-16] MEDS: SENNOSIDES/DOCUSATE 8.6/50MG TABLET. PO SCH (09:00)
[2018-07-16] MEDS: VANCOMYCIN 1 GM in IV NORMAL SALINE 250ML 250 ML IV SCH ×2 (09:34→20:56)
[2018-07-16] MEDS: POLYVINYL ALCOHOL 1.4% OPHTH SOLUTION 15ML BOTTLE. OU SCH ×2 (09:35→20:57)
[2018-07-16] MEDS: FERROUS SULFATE 325 MG TABLET. PO SCH ×2 (12:13→20:56)
[2018-07-16 18:00] VITALS: BP 164/94
[2018-07-16] MEDS: SIMVASTATIN 10 MG TABLET PO SCH (20:56)
[2018-07-16] MEDS: ACETAMINOPHEN 325 MG TABLET PO PRN (22:23)
[2018-07-16] MEDS: CARBIDOPA/LEVODOPA CR 25/100MG TABLET.SA PO SCH (22:23)
[2018-07-17 06:25] VITALS: BP 156/89
[2018-07-17] MEDS: CARBIDOPA/LEVODOPA 25/100MG TABLET PO SCH ×4 (06:27→17:39)
[2018-07-17] MEDS: PIPERACILLIN/TAZOBACTAM 3.375 GM in IV NORMAL SALINE 50ML 50 ML IV SCH ×4 (06:27→23:57)
[2018-07-17] MEDS: METOPROLOL TART IMMED RELEASE 50 MG TABLET PO SCH ×2 (08:53→20:55)
[2018-07-17] MEDS: OXYBUTYNIN CHLORIDE 5 MG TABLET PO SCH ×2 (08:53→20:55)
[2018-07-17] MEDS: POLYVINYL ALCOHOL 1.4% OPHTH SOLUTION 15ML BOTTLE. OU SCH ×2 (08:53→20:56)
[2018-07-17] MEDS: MULTIVITAMIN with MINERAL TABLET. PO SCH (08:53)
[2018-07-17] MEDS: APIXABAN 2.5 MG TABLET PO SCH ×2 (08:53→20:55)
[2018-07-17] MEDS: ASCORBIC ACID 500 MG TABLET PO SCH ×2 (08:53→20:55)
[2018-07-17] MEDS: LACTOBACILLUS RHAMNOSUS GG 1 CAPSULE. PO SCH ×2 (08:53→20:55)
[2018-07-17] MEDS: FAMOTIDINE 20 MG TABLET PO SCH ×2 (08:53→20:56)
[2018-07-17] MEDS: DOCUSATE SODIUM 100 MG CAPSULE PO SCH ×2 (08:54→20:55)
[2018-07-17] MEDS: POLYETHYLENE GLYCOL 3350 17 GM PACKET. PO SCH (08:54)
[2018-07-17] MEDS: SENNOSIDES/DOCUSATE 8.6/50MG TABLET. PO SCH (08:54)
[2018-07-17] MEDS: VANCOMYCIN 1 GM in IV NORMAL SALINE 250ML 250 ML IV SCH ×2 (08:54→20:55)
[2018-07-17] MEDS: FERROUS SULFATE 325 MG TABLET. PO SCH ×2 (12:23→20:55)
[2018-07-17 17:50] VITALS: BP 105/66
[2018-07-17] MEDS: SIMVASTATIN 10 MG TABLET PO SCH (20:56)
[2018-07-17] MEDS: ACETAMINOPHEN 325 MG TABLET PO PRN (22:24)
[2018-07-17] MEDS: CARBIDOPA/LEVODOPA CR 25/100MG TABLET.SA PO SCH (22:30)
[2018-07-18] MEDS: CARBIDOPA/LEVODOPA 25/100MG TABLET PO SCH ×4 (06:23→18:24)
[2018-07-18] MEDS: PIPERACILLIN/TAZOBACTAM 3.375 GM in IV NORMAL SALINE 50ML 50 ML IV SCH ×4 (06:24→23:50)
[2018-07-18 06:34] VITALS: BP 178/89
[2018-07-18] MEDS: POLYVINYL ALCOHOL 1.4% OPHTH SOLUTION 15ML BOTTLE. OU SCH ×2 (08:17→20:54)
[2018-07-18] MEDS: DEXAMETHASONE 0.1% OPHTH SOLUTION 5ML BOTTLE. OU SCH (08:18)
[2018-07-18] MEDS: DOCUSATE SODIUM 100 MG CAPSULE PO SCH ×2 (08:18→20:54)
[2018-07-18] MEDS: OXYBUTYNIN CHLORIDE 5 MG TABLET PO SCH ×2 (08:19→20:55)
[2018-07-18] MEDS: FERROUS SULFATE 325 MG TABLET. PO SCH ×2 (08:19→20:54)
[2018-07-18] MEDS: LACTOBACILLUS RHAMNOSUS GG 1 CAPSULE. PO SCH ×2 (08:19→20:55)
[2018-07-18] MEDS: APIXABAN 2.5 MG TABLET PO SCH ×2 (08:19→20:55)
[2018-07-18] MEDS: METOPROLOL TART IMMED RELEASE 50 MG TABLET PO SCH ×2 (08:20→20:55)
[2018-07-18] MEDS: FAMOTIDINE 20 MG TABLET PO SCH ×2 (08:20→20:54)
[2018-07-18] MEDS: SENNOSIDES/DOCUSATE 8.6/50MG TABLET. PO SCH (08:20)
[2018-07-18] MEDS: POLYETHYLENE GLYCOL 3350 17 GM PACKET. PO SCH (08:20)
[2018-07-18] MEDS: MULTIVITAMIN with MINERAL TABLET. PO SCH (08:21)
[2018-07-18] MEDS: ASCORBIC ACID 500 MG TABLET PO SCH ×2 (08:21→20:55)
[2018-07-18] MEDS: VANCOMYCIN 1 GM in IV NORMAL SALINE 250ML 250 ML IV SCH ×2 (09:20→20:54)
[2018-07-18 18:28] VITALS: BP 151/75
[2018-07-18] MEDS: SIMVASTATIN 10 MG TABLET PO SCH (20:55)
[2018-07-18] MEDS: CARBIDOPA/LEVODOPA CR 25/100MG TABLET.SA PO SCH (22:28)
[2018-07-18] MEDS: ACETAMINOPHEN 325 MG TABLET PO PRN (22:29)
[2018-07-19] MEDS: PIPERACILLIN/TAZOBACTAM 3.375 GM in IV NORMAL SALINE 50ML 50 ML IV SCH ×3 (06:00→17:50)
[2018-07-19 06:05] VITALS: BP 155/67
[2018-07-19] MEDS: CARBIDOPA/LEVODOPA 25/100MG TABLET PO SCH ×4 (06:30→18:39)
[2018-07-19 07:58] VITALS: BP 170/90
[2018-07-19] MEDS: OXYBUTYNIN CHLORIDE 5 MG TABLET PO SCH ×2 (08:28→20:45)
[2018-07-19] MEDS: DOCUSATE SODIUM 100 MG CAPSULE PO SCH ×2 (08:28→20:45)
[2018-07-19] MEDS: POLYVINYL ALCOHOL 1.4% OPHTH SOLUTION 15ML BOTTLE. OU SCH ×2 (08:28→21:00)
[2018-07-19] MEDS: LACTOBACILLUS RHAMNOSUS GG 1 CAPSULE. PO SCH ×2 (08:28→20:45)
[2018-07-19] MEDS: FERROUS SULFATE 325 MG TABLET. PO SCH ×2 (08:29→20:45)
[2018-07-19] MEDS: APIXABAN 2.5 MG TABLET PO SCH ×2 (08:29→20:45)
[2018-07-19] MEDS: METOPROLOL TART IMMED RELEASE 50 MG TABLET PO SCH ×2 (08:29→20:45)
[2018-07-19] MEDS: POLYETHYLENE GLYCOL 3350 17 GM PACKET. PO SCH (08:29)
[2018-07-19] MEDS: MULTIVITAMIN with MINERAL TABLET. PO SCH (08:30)
[2018-07-19] MEDS: ASCORBIC ACID 500 MG TABLET PO SCH ×2 (08:30→20:45)
[2018-07-19] MEDS: SENNOSIDES/DOCUSATE 8.6/50MG TABLET. PO SCH (08:30)
[2018-07-19] MEDS: FAMOTIDINE 20 MG TABLET PO SCH ×2 (08:30→20:45)
[2018-07-19 08:35] LABS: BASO # 0.1 x10^3/uL (0.0-0.2); BASO % 1 % (0-3); EOS # 0.4 x10^3/uL (0.0-0.7); EOS % 7 % (0-3); HEMATOCRIT 38.2 % (39.0-53.0); HEMOGLOBIN 11.8 g/dL (13.0-17.5); LYMPH # 0.8 x10^3/uL (1.0-4.8); LYMPH % 13 % (24-48); MEAN CORPUSCULAR HEMOGLOBIN 28 pg (25-35); MEAN CORPUSCULAR HGB CONC 31 g/dL (31-37); MEAN CORPUSCULAR VOLUME 91 fL (79-100); MONO # 0.7 x10^3/uL (0.0-1.1); MONO % 11 % (0-9); NEUT # 4.1 x10^3uL (1.8-7.7); NEUT % 68 % (31-73); PLATELET COUNT 307 x10^3/uL (140-400); WHITE BLOOD COUNT 6.1 x10^3/uL (4.0-11.0)
[2018-07-19 08:40] LABS: ALBUMIN 3.2 g/dL (3.4-5.0); ALBUMIN/GLOBULIN RATIO 0.8 (1.0-1.7); CALCIUM 9.2 mg/dL (8.5-10.1); CREATININE 0.8 mg/dL (0.7-1.3); GFR 92.5; POTASSIUM 3.7 mmol/L (3.5-5.1); TOTAL BILIRUBIN 0.4 mg/dL (0.2-1.0)
[2018-07-19] MEDS: VANCOMYCIN 1 GM in IV NORMAL SALINE 250ML 250 ML IV SCH ×2 (08:59→20:45)
[2018-07-19 10:57] VITALS: BP 107/59
[2018-07-19] MEDS: VANCOMYCIN PER PHARMACY MC PRN (12:54)
[2018-07-19 18:15] VITALS: BP 139/69
[2018-07-19 20:00] VITALS: BP 185/84
[2018-07-19] MEDS: SIMVASTATIN 10 MG TABLET PO SCH (20:45)
[2018-07-19] MEDS: CARBIDOPA/LEVODOPA CR 25/100MG TABLET.SA PO SCH (22:11)
[2018-07-19] MEDS: ACETAMINOPHEN 325 MG TABLET PO PRN (22:12)
[2018-07-19 22:44] VITALS: BP 178/84
[2018-07-20 00:10] VITALS: BP 166/81
[2018-07-20 05:05] VITALS: BP 179/82
[2018-07-20] MEDS: PIPERACILLIN/TAZOBACTAM 3.375 GM in IV NORMAL SALINE 50ML 50 ML IV SCH ×6 (05:57→23:49)
[2018-07-20 05:59] VITALS: BP 157/84
[2018-07-20] MEDS: CARBIDOPA/LEVODOPA 25/100MG TABLET PO SCH ×4 (06:29→18:30)
[2018-07-20] MEDS: POLYETHYLENE GLYCOL 3350 17 GM PACKET. PO SCH (09:00)
[2018-07-20] MEDS: VANCOMYCIN 1 GM in IV NORMAL SALINE 250ML 250 ML IV SCH ×2 (09:17→20:48)
[2018-07-20] MEDS: LACTOBACILLUS RHAMNOSUS GG 1 CAPSULE. PO SCH ×2 (09:25→20:50)
[2018-07-20] MEDS: DEXAMETHASONE 0.1% OPHTH SOLUTION 5ML BOTTLE. OU SCH (09:25)
[2018-07-20] MEDS: DOCUSATE SODIUM 100 MG CAPSULE PO SCH ×2 (09:25→20:50)
[2018-07-20] MEDS: OXYBUTYNIN CHLORIDE 5 MG TABLET PO SCH ×2 (09:26→20:51)
[2018-07-20] MEDS: APIXABAN 2.5 MG TABLET PO SCH ×2 (09:27→20:51)
[2018-07-20] MEDS: FERROUS SULFATE 325 MG TABLET. PO SCH ×2 (09:27→20:51)
[2018-07-20] MEDS: ASCORBIC ACID 500 MG TABLET PO SCH ×2 (09:28→20:52)
[2018-07-20] MEDS: FAMOTIDINE 20 MG TABLET PO SCH ×2 (09:28→20:51)
[2018-07-20] MEDS: METOPROLOL TART IMMED RELEASE 50 MG TABLET PO SCH ×2 (09:28→20:51)
[2018-07-20] MEDS: SENNOSIDES/DOCUSATE 8.6/50MG TABLET. PO SCH (09:28)
[2018-07-20] MEDS: MULTIVITAMIN with MINERAL TABLET. PO SCH (09:28)
[2018-07-20] MEDS: POLYVINYL ALCOHOL 1.4% OPHTH SOLUTION 15ML BOTTLE. OU SCH ×2 (09:29→20:50)
[2018-07-20 18:20] VITALS: BP 137/79
[2018-07-20] MEDS: SIMVASTATIN 10 MG TABLET PO SCH (20:52)
[2018-07-20] MEDS: ACETAMINOPHEN 325 MG TABLET PO PRN (22:25)
[2018-07-20] MEDS: CARBIDOPA/LEVODOPA CR 25/100MG TABLET.SA PO SCH (22:25)
[2018-07-21 06:00] VITALS: BP 170/82
[2018-07-21] MEDS: CARBIDOPA/LEVODOPA 25/100MG TABLET PO SCH ×4 (06:02→18:27)
[2018-07-21] MEDS: PIPERACILLIN/TAZOBACTAM 3.375 GM in IV NORMAL SALINE 50ML 50 ML IV SCH ×3 (06:02→17:57)
[2018-07-21] MEDS: POLYETHYLENE GLYCOL 3350 17 GM PACKET. PO SCH (09:00)
[2018-07-21 09:05] LABS: VANC TR 13.4 mcg/mL (10.0-20.0)
[2018-07-21] MEDS: VANCOMYCIN PER PHARMACY MC PRN (09:22)
[2018-07-21] MEDS: VANCOMYCIN 1 GM in IV NORMAL SALINE 250ML 250 ML IV SCH ×2 (09:35→20:54)
[2018-07-21] MEDS: LACTOBACILLUS RHAMNOSUS GG 1 CAPSULE. PO SCH ×2 (09:45→20:55)
[2018-07-21] MEDS: APIXABAN 2.5 MG TABLET PO SCH ×2 (09:45→20:56)
[2018-07-21] MEDS: POLYVINYL ALCOHOL 1.4% OPHTH SOLUTION 15ML BOTTLE. OU SCH ×2 (09:45→20:54)
[2018-07-21] MEDS: DOCUSATE SODIUM 100 MG CAPSULE PO SCH ×2 (09:45→20:55)
[2018-07-21] MEDS: OXYBUTYNIN CHLORIDE 5 MG TABLET PO SCH ×2 (09:45→20:55)
[2018-07-21] MEDS: METOPROLOL TART IMMED RELEASE 50 MG TABLET PO SCH ×2 (09:46→20:56)
[2018-07-21] MEDS: FERROUS SULFATE 325 MG TABLET. PO SCH ×2 (09:47→20:56)
[2018-07-21] MEDS: SENNOSIDES/DOCUSATE 8.6/50MG TABLET. PO SCH (09:48)
[2018-07-21] MEDS: MULTIVITAMIN with MINERAL TABLET. PO SCH (09:48)
[2018-07-21] MEDS: FAMOTIDINE 20 MG TABLET PO SCH ×2 (09:48→20:56)
[2018-07-21] MEDS: ASCORBIC ACID 500 MG TABLET PO SCH ×2 (09:48→20:56)
[2018-07-21] MEDS ORDERED: FLUCONAZOLE 100 MG TABLET. PO ONE (14:45)
[2018-07-21 18:09] VITALS: BP 128/77
[2018-07-21] MEDS: CARBIDOPA/LEVODOPA CR 25/100MG TABLET.SA PO SCH ×2 (20:57→22:47)
[2018-07-21] MEDS: NYSTATIN TOPICAL POWDER 15GM BOTTLE. TP SCH (20:57)
[2018-07-21] MEDS: SIMVASTATIN 10 MG TABLET PO SCH (20:57)
[2018-07-21] MEDS: ACETAMINOPHEN 325 MG TABLET PO PRN (22:47)
[2018-07-22] MEDS: PIPERACILLIN/TAZOBACTAM 3.375 GM in IV NORMAL SALINE 50ML 50 ML IV SCH ×4 (00:21→17:42)
[2018-07-22] MEDS: CARBIDOPA/LEVODOPA 25/100MG TABLET PO SCH ×4 (06:22→18:23)
[2018-07-22 06:34] VITALS: BP 157/84
[2018-07-22] MEDS: METOPROLOL TART IMMED RELEASE 50 MG TABLET PO SCH ×2 (08:21→21:10)
[2018-07-22] MEDS: APIXABAN 2.5 MG TABLET PO SCH ×2 (08:21→21:09)
[2018-07-22] MEDS: LACTOBACILLUS RHAMNOSUS GG 1 CAPSULE. PO SCH ×2 (08:21→21:10)
[2018-07-22] MEDS: FERROUS SULFATE 325 MG TABLET. PO SCH ×2 (08:22→21:10)
[2018-07-22] MEDS: DOCUSATE SODIUM 100 MG CAPSULE PO SCH ×2 (08:22→21:10)
[2018-07-22] MEDS: OXYBUTYNIN CHLORIDE 5 MG TABLET PO SCH ×2 (08:22→21:10)
[2018-07-22] MEDS: FAMOTIDINE 20 MG TABLET PO SCH ×2 (08:22→21:10)
[2018-07-22] MEDS: MULTIVITAMIN with MINERAL TABLET. PO SCH (08:22)
[2018-07-22] MEDS: ASCORBIC ACID 500 MG TABLET PO SCH ×2 (08:22→21:09)
[2018-07-22] MEDS: SENNOSIDES/DOCUSATE 8.6/50MG TABLET. PO SCH (08:22)
[2018-07-22] MEDS: DEXAMETHASONE 0.1% OPHTH SOLUTION 5ML BOTTLE. OU SCH (08:23)
[2018-07-22] MEDS: POLYVINYL ALCOHOL 1.4% OPHTH SOLUTION 15ML BOTTLE. OU SCH ×2 (08:23→21:09)
[2018-07-22] MEDS: NYSTATIN TOPICAL POWDER 15GM BOTTLE. TP SCH ×2 (08:24→21:00)
[2018-07-22] MEDS: VANCOMYCIN 1 GM in IV NORMAL SALINE 250ML 250 ML IV SCH ×2 (08:24→21:09)
[2018-07-22] MEDS: POLYETHYLENE GLYCOL 3350 17 GM PACKET. PO SCH (08:25)
[2018-07-22 18:19] VITALS: BP 136/76
[2018-07-22] MEDS: ACETAMINOPHEN 325 MG TABLET PO PRN (21:10)
[2018-07-22] MEDS: SIMVASTATIN 10 MG TABLET PO SCH (21:10)
[2018-07-22] MEDS: CARBIDOPA/LEVODOPA CR 25/100MG TABLET.SA PO SCH (22:31)
[2018-07-23] MEDS: PIPERACILLIN/TAZOBACTAM 3.375 GM in IV NORMAL SALINE 50ML 50 ML IV SCH ×4 (00:12→18:00)
[2018-07-23] MEDS: CARBIDOPA/LEVODOPA 25/100MG TABLET PO SCH ×4 (06:27→18:00)
[2018-07-23 06:34] VITALS: BP 169/92
[2018-07-23 06:53] VITALS: BP 174/99
[2018-07-23] MEDS: MULTIVITAMIN with MINERAL TABLET. PO SCH ×2 (09:00→09:01)
[2018-07-23] MEDS: POLYETHYLENE GLYCOL 3350 17 GM PACKET. PO SCH (09:00)
[2018-07-23] MEDS: ASCORBIC ACID 500 MG TABLET PO SCH ×2 (09:00→09:02)
[2018-07-23] MEDS: SENNOSIDES/DOCUSATE 8.6/50MG TABLET. PO SCH (09:00)
[2018-07-23] MEDS: FAMOTIDINE 20 MG TABLET PO SCH ×2 (09:01→21:18)
[2018-07-23] MEDS: LACTOBACILLUS RHAMNOSUS GG 1 CAPSULE. PO SCH ×2 (09:01→21:17)
[2018-07-23] MEDS: DOCUSATE SODIUM 100 MG CAPSULE PO SCH ×2 (09:01→21:17)
[2018-07-23] MEDS: METOPROLOL TART IMMED RELEASE 50 MG TABLET PO SCH ×2 (09:01→21:18)
[2018-07-23] MEDS: OXYBUTYNIN CHLORIDE 5 MG TABLET PO SCH ×2 (09:01→21:17)
[2018-07-23] MEDS: VANCOMYCIN 1 GM in IV NORMAL SALINE 250ML 250 ML IV SCH ×2 (09:01→21:12)
[2018-07-23] MEDS: APIXABAN 2.5 MG TABLET PO SCH ×2 (09:02→21:18)
[2018-07-23] MEDS: FERROUS SULFATE 325 MG TABLET. PO SCH ×2 (09:02→21:18)
[2018-07-23] MEDS: LISINOPRIL 10 MG TABLET PO SCH (09:11)
[2018-07-23] MEDS: POLYVINYL ALCOHOL 1.4% OPHTH SOLUTION 15ML BOTTLE. OU SCH ×2 (09:17→21:16)
[2018-07-23] MEDS: NYSTATIN TOPICAL POWDER 15GM BOTTLE. TP SCH ×2 (09:17→21:18)
[2018-07-23 18:14] VITALS: BP 122/73
[2018-07-23] MEDS: SIMVASTATIN 10 MG TABLET PO SCH (21:19)
[2018-07-23] MEDS: ACETAMINOPHEN 325 MG TABLET PO PRN (22:31)
[2018-07-23] MEDS: CARBIDOPA/LEVODOPA CR 25/100MG TABLET.SA PO SCH (22:32)
[2018-07-24] MEDS: PIPERACILLIN/TAZOBACTAM 3.375 GM in IV NORMAL SALINE 50ML 50 ML IV SCH ×4 (00:19→18:23)
[2018-07-24] MEDS: CARBIDOPA/LEVODOPA 25/100MG TABLET PO SCH ×4 (06:18→18:27)
[2018-07-24 06:29] VITALS: BP 179/78
[2018-07-24] MEDS: OXYBUTYNIN CHLORIDE 5 MG TABLET PO SCH ×2 (08:51→21:44)
[2018-07-24] MEDS: POLYVINYL ALCOHOL 1.4% OPHTH SOLUTION 15ML BOTTLE. OU SCH ×2 (08:51→21:42)
[2018-07-24] MEDS: LACTOBACILLUS RHAMNOSUS GG 1 CAPSULE. PO SCH ×2 (08:51→21:43)
[2018-07-24] MEDS: DOCUSATE SODIUM 100 MG CAPSULE PO SCH ×2 (08:51→21:43)
[2018-07-24] MEDS: SENNOSIDES/DOCUSATE 8.6/50MG TABLET. PO SCH (08:52)
[2018-07-24] MEDS: METOPROLOL TART IMMED RELEASE 50 MG TABLET PO SCH ×2 (08:52→21:44)
[2018-07-24] MEDS: FERROUS SULFATE 325 MG TABLET. PO SCH ×2 (08:52→21:43)
[2018-07-24] MEDS: APIXABAN 2.5 MG TABLET PO SCH ×2 (08:52→21:43)
[2018-07-24] MEDS: FAMOTIDINE 20 MG TABLET PO SCH ×2 (08:52→21:43)
[2018-07-24] MEDS: LISINOPRIL 10 MG TABLET PO SCH (08:53)
[2018-07-24] MEDS: NYSTATIN TOPICAL POWDER 15GM BOTTLE. TP SCH ×2 (08:53→21:45)
[2018-07-24] MEDS: POLYETHYLENE GLYCOL 3350 17 GM PACKET. PO SCH (09:00)
[2018-07-24] MEDS: VANCOMYCIN 1 GM in IV NORMAL SALINE 250ML 250 ML IV SCH ×2 (09:01→21:42)
[2018-07-24 18:30] VITALS: BP 147/84
[2018-07-24] MEDS: SIMVASTATIN 10 MG TABLET PO SCH (21:43)
[2018-07-24] MEDS: CARBIDOPA/LEVODOPA CR 25/100MG TABLET.SA PO SCH (22:48)
[2018-07-25] MEDS: PIPERACILLIN/TAZOBACTAM 3.375 GM in IV NORMAL SALINE 50ML 50 ML IV SCH ×3 (00:32→11:43)
[2018-07-25] MEDS: CARBIDOPA/LEVODOPA 25/100MG TABLET PO SCH ×2 (06:29→10:42)
[2018-07-25 06:42] VITALS: BP 179/88
[2018-07-25] MEDS: APIXABAN 2.5 MG TABLET PO SCH (08:24)
[2018-07-25] MEDS: LACTOBACILLUS RHAMNOSUS GG 1 CAPSULE. PO SCH (08:24)
[2018-07-25] MEDS: DOCUSATE SODIUM 100 MG CAPSULE PO SCH (08:24)
[2018-07-25] MEDS: OXYBUTYNIN CHLORIDE 5 MG TABLET PO SCH (08:25)
[2018-07-25] MEDS: LISINOPRIL 10 MG TABLET PO SCH (08:25)
[2018-07-25 08:26] VITALS: BP 179/88
[2018-07-25] MEDS: SENNOSIDES/DOCUSATE 8.6/50MG TABLET. PO SCH (08:26)
[2018-07-25] MEDS: FERROUS SULFATE 325 MG TABLET. PO SCH (08:26)
[2018-07-25] MEDS: METOPROLOL TART IMMED RELEASE 50 MG TABLET PO SCH (08:26)
[2018-07-25] MEDS: FAMOTIDINE 20 MG TABLET PO SCH (08:27)
[2018-07-25] MEDS: POLYETHYLENE GLYCOL 3350 17 GM PACKET. PO SCH (08:27)
[2018-07-25] MEDS: POLYVINYL ALCOHOL 1.4% OPHTH SOLUTION 15ML BOTTLE. OU SCH (09:52)
[2018-07-25] MEDS: DEXAMETHASONE 0.1% OPHTH SOLUTION 5ML BOTTLE. OU SCH (09:52)
[2018-07-25] MEDS: VANCOMYCIN 1 GM in IV NORMAL SALINE 250ML 250 ML IV SCH (10:04)
[2018-07-25] MEDS: NYSTATIN TOPICAL POWDER 15GM BOTTLE. TP SCH (10:25)
--- NOTE | 2018-07-25 22:26 | DS ---
DATE OF DISCHARGE: 07/25/2018 HOSPITAL COURSE: The patient is an 83-year-old male patient who was admitted to Swing Bed at [facility] to continue with IV antibiotic for infected left hip prostheses. He apparently has been very confused. He is apparently not following commands and refusing to take his medication and when I examined him today, he definitely was unable to follow my commands in terms of trying to check his visual field grossly. He has difficulty with the cerebellar testing and has past pointing. He is unable to see my finger and he keeps moving his finger away from that in different direction and he apparently has fallen before and has had a large hematoma on the left forehead and therefore, a decision was made to switch him to acute care bed to do a CT scan of the head and also to consult Dr. Hernandez and perhaps if there his fishing vessel deckhand or rail switchman can see him, we will consult to evaluate his vision. When I went this morning to his room, he managed to recognize me. I am not sure whether because I greeted him, so he recognized my voice, but he definitely has problem with his vision. PHYSICAL EXAMINATION: GENERAL: When I examined him, he looked pale, but no jaundice, cyanosis, or thyromegaly. No jugular venous distention. No limb edema. VITAL SIGNS: His heart rate was 77, blood pressure was 179/89, temperature was 98.3, respiratory rate 22, and oxygen saturation was 95% on room air. HEAD, EYES, EARS, NOSE AND THROAT: Normocephalic, atraumatic. NECK: Supple. HEART: Showed normal first and second sounds. No gallop, rub or murmur. CHEST: Clear to auscultation. No crepitation or rhonchi. ABDOMEN: Distended, soft, nontender. No guarding or rigidity. No organomegaly. Hernial orifice intact. Bowel sounds normal. NEUROLOGIC: He was awake, alert. He managed to recognize me probably by recognizing my face. He was awake, alert, has difficulty following my commands, although all his cranial nerves seem to be grossly intact except that he has problem with his vision and he has no weakness in both upper and lower extremities. However, he seemed to have past pointing. His most recent lab work was done about 6 days ago, which showed a serum sodium 139, potassium 3.7, chloride 104, bicarbonate 25, anion gap of 10, BUN 11, creatinine 0.8, estimated GFR was 92 mL per minute. Her glucose was 111, calcium was 9.2. Total bilirubin, AST, ALT were normal. Alkaline phosphatase was slightly elevated at 436. His total protein was 7, albumin 3.2. White cell count was 6000, hemoglobin 12, hematocrit 38, MCV 91, and platelet count 307,000. DISCHARGE MEDICATIONS: The patient will be transferred acute bed to continue on his vancomycin as per pharmacy recommendation, lisinopril 10 mg once a day, famotidine 20 mg twice a day, polyethylene glycol 17 g daily, dexamethasone(Maxidex) 1 drop to both eyes every Wednesday, Wednesday, and Wednesday, and Sinemet-CR 2 tablets once a day, apixaban 2.5 mg twice a day, senna docusate +1 tablet once a day, oxybutynin chloride 5 mg twice a day, metoprolol tartrate 50 mg p.o. b.i.d., lactobacillus rhamnosus p.o. b.i.d., docusate 100 mg twice a day, simvastatin 10 mg at bedtime, artificial tears 1 drop to both eyes twice a day, ferrous sulfate 325 mg once a day, Zosyn 3.375 g IV q.6 hourly, propylene glycol 17 g daily, carbidopa/levodopa 2 tablets 4 times a day, and acetaminophen 650 mg every 4 hours. FINAL DISCHARGE DIAGNOSES: Altered mental status with poor vision and some cerebellar dysfunction signs, worrisome for intracranial bleed, and given that he is already on apixaban and has had history of fall before. Other medical problems include hypertension, hyperlipidemia, dementia, Parkinson disease, benign prostatic hypertrophy, breast cancer, left hip hemiarthroplasty, status post periprosthetic fracture rewiring, revision due to infection, and infected left hip prosthesis. ANA FINNEGAN MD DR: HÉCTOR/nathaniel JOB#: [id number] / [id number]
--- NOTE | 2018-07-27 00:10 | CONS ---
DATE OF CONSULTATION: 07/25/2018 REFERRING PHYSICIAN: Dr. Camara. REASON FOR CONSULTATION: Acute mental status changes and generalized weakness. HISTORY OF PRESENT ILLNESS: This is an 83-year-old right-handed male, who was admitted to swing bed status post IV antibiotics and physical therapy. According to the daughter, the patient has been in his usual state of health until he fell in 05/2018 resulted in left femoral neck fracture, required surgery on 05/30/2018 when he underwent left hip hemiarthroplasty. Subsequently, he left the hospital back to [place] for physical therapy and rehabilitation. However, he fell again and had periprosthetic fracture. On 06/11/2018, the patient went back to [facility] and had another procedure to rewiring of the fracture and added hardware. The patient has been in swing bed for approximately 1 month, receiving physical therapy for multiple MRSA, pseudomonas, and Enterococcus. Neuro consult was requested because the patient had 4-day of intermittent confusion, slurred speech, and sometimes difficulty finding words. According to the patient, his voice came back to baseline. He denies headaches, visual disturbances, nausea, vomiting, chest pain or shortness of breath. The patient admitted to have blurred vision and memory loss. PAST MEDICAL HISTORY: Significant for Parkinson's disease, hypertension, hyperlipidemia, cardiac valve dysfunction, and possible early dementia, benign prostate hypertrophy, prostate cancer, urinary tract infections, chronic left hip pain required hemiarthroplasty. SOCIAL HISTORY: The patient denies smoking, alcohol drinking, or illicit drug use. CURRENT HOME MEDICATIONS: Lisinopril 10 mg daily, multivitamins, statin 1 p.o. b.i.d., carbidopa/levodopa 25/100 two tablets 4 times a day and carbidopa/levodopa ER 25/100 two tablets at bedtime, Eliquis 2.5 mg b.i.d., Pepcid 20 mg b.i.d., oxybutynin 5 mg b.i.d., metoprolol 50 mg b.i.d., vitamin C 500 mg b.i.d., ferrous sulfate 325 mg daily, and Tylenol p.r.n. and broad-spectrum antibiotics of vancomycin and Zosyn. ALLERGIES: No known drug allergies. REVIEW OF SYSTEMS: A 10-point review of system was performed as mentioned above in the history of present illness consistent with intermittent confusion, disorientation, and memory loss. PHYSICAL EXAMINATION: GENERAL: A well-developed, well-nourished male, not in acute distress. VITAL SIGNS: pounds. Blood pressure 131/72, respiratory rate 20, pulse is 92, temperature 97.6, oxygen saturation is 94% on room air. HEENT: Normocephalic, atraumatic, otherwise unremarkable. NECK: Supple. Negative for carotid bruit, lymphadenopathy or thyromegaly. LUNGS: Clear to A and P. CARDIOVASCULAR: Regular rate and rhythm. Normal S1, S2. There is no S3, S4, or murmur. ABDOMEN: Soft. Bowel sounds positive. EXTREMITIES: Negative for cyanosis, clubbing or pitting edema. NEUROLOGICAL EXAM: Mental Status: The patient is alert and oriented to place. He is disoriented to time and person. Speech is fluent. There is no language dysfunction. Memory, judgment, and abstract thinking are fair. The patient denies hallucination or delusion. CRANIAL NERVES: Visual hernandez are full. The pupils are reactive to light and accommodation. The extraocular movements are intact. There is no nystagmus. There is no facial motor or sensory deficit. Hearing is diminished bilaterally. The palate is elevated symmetrically. Sternocleidomastoid muscles are powerful bilaterally. The patient shrugs his shoulders symmetrically, protrudes his tongue in the midline without fasciculation or atrophy. MOTOR: No focal muscle bulk was seen. The tone is normal. The strength is 4/5 throughout. Intermittent resting tremor of both hands was noted as well. Sensory examination revealed normal pinprick and light touch senses throughout. Sensory examination revealed normal pinprick and light touch senses throughout. Deep tendon reflexes were symmetric and hypoactive with absent Achilles responses. Gait not tested. DIAGNOSTIC DATA: Initial nonenhanced CT scan performed today revealed no acute intracranial process, but it showed small vessel ischemic changes. LABORATORY DATA: CBC revealed white blood cells of 6.1 thousand, hemoglobin 11.8, hematocrit 38.2, platelet count 307. Chemistry revealed sodium 139, potassium 3.9, chloride 107, CO2 of 20, BUN 11, creatinine 0.8, calcium 9.2. Lactic acid is 0.9. Liver enzymes reveal normal AST, but low ALT, alkaline phosphatase was high at 436. Cardiac enzymes are normal. CRP is elevated at 50.3. Urine drug screen is negative. IMPRESSION: 1. Intermittent confusion, probably due to prolonged hospitalization, depressions, and anxiety. 2. Multiple medical problems include Parkinson disease, which has been stable; hypertension; status post left hip surgery and rewiring and added more hardware for stabilization. 3. Multiple medical problems include hearing loss, history of cardiac arrhythmias or atrial fibrillation, valvular heart disease, history of prostate cancer. RECOMMENDATIONS: 1. Dementia workup. 2. We will obtain EEG on an outpatient basis. 3. Physical therapy evaluation and continue with current management. 4. Continue with current home medications for Parkinson disease. M Zaire BISHOP MD DR: KEITH/nathaniel JOB#: [id number] / [id number]
== END 2018-07-25 12:30 | disposition short-term general hospital (02) | DRG 86 ==
LOC: LND 16:00
PROVIDERS: ADMIT Neuromusculoskeletal Medicine & OMM; ATTEND Neuromusculoskeletal Medicine & OMM
DX: S06.370A Contusion, laceration, and hemorrhage of cerebellum without loss of consciousness, initial encounter (principal); F05 Delirium due to known physiological condition; G32.81 Cerebellar ataxia in diseases classified elsewhere; C50.929 Malignant neoplasm of unspecified site of unspecified male breast; E78.5 Hyperlipidemia, unspecified; C61 Malignant neoplasm of prostate; F63.9 Impulse disorder, unspecified; F41.9 Anxiety disorder, unspecified; F09 Unspecified mental disorder due to known physiological condition; F02.80 Dementia in other diseases classified elsewhere, unspecified severity, without behavioral disturbance, psychotic disturbance, mood disturbance, and anxiety; H53.8 Other visual disturbances; G20 Parkinson's disease; H91.90 Unspecified hearing loss, unspecified ear; I10 Essential (primary) hypertension; N40.1 Benign prostatic hyperplasia with lower urinary tract symptoms; R32 Unspecified urinary incontinence; I48.91 Unspecified atrial fibrillation; W18.39XA Other fall on same level, initial encounter; Z85.46 Personal history of malignant neoplasm of prostate; Y93.89 Activity, other specified; Y92.89 Other specified places as the place of occurrence of the external cause; Z79.899 Other long term (current) drug therapy; Z79.01 Long term (current) use of anticoagulants; Y99.8 Other external cause status; Z23 Encounter for immunization
CPT/HCPCS: 36415; 71045; 80048; 80053; 80202; 82565; 85007; 85025; 85027; 85651; 86140; 90471; 90756; J2543; J2997; J3370; J7050; S0028; 97110; 97112; 97116; 97530; 97535; Q2035

== ENCOUNTER 2018-07-25 12:35 | Inpatient (IN) | payer MEDICARE, BC ==
[~2018-07-25] VITALS: Ht 182.9 cm; Wt 82.2 kg
[~2018-07-25 12:35] MED LIST changes: +ASCO-72 PO; +ASCO500C9 PO; +CARB1TAB4 PO; +DEXA5DRO OP; +DOCU100C28 PO; +FERR325T14 PO; +LACT1CAP21 PO; +METO50TA6 PO; +OXYB5TAB33 PO; +PIPE3.3734 IV; +POLY15DR27 OP; +POLY17PO5 PO; +SENN1TAB21 PO; +VANC1.2514 IV
[2018-07-25] MEDS ORDERED: ACETAMINOPHEN 325 MG TABLET PO PRN (13:45)
[2018-07-25] MEDS ORDERED: VANCOMYCIN PER PHARMACY MC PRN (14:00)
--- NOTE | 2018-07-25 14:02 | RAD ---
CT HEAD INDICATION: CHANGE IN VISION AND MENTAL STATUS, PT HAS MAGY COMPARISON: 11/05/2004 Exposure: One or more of the following individualized dose reduction techniques were utilized for this examination: 1. Automated exposure control 2. Adjustment of the mA and/or kV according to patient size 3. Use of iterative reconstruction technique TECHNIQUE: 5 mm contiguous axial images were obtained from the skull base to the vertex in both bone and soft tissue algorithm. FINDINGS: Mild bilateral periventricular white matter hypodensities likely chronic small vessel ischemic disease. No evidence of acute intracranial hemorrhage. No extra-axial fluid collections. No mass effect or midline shift. Ventricular size is appropriate. Basal cisterns are patent. No fractures identified.Lamb-white differentiation is preserved.Globes and orbits are within normal limits. Paranasal sinuses and mastoid air cells are clear. IMPRESSION: No acute intracranial findings. Electronically signed by: Ismael Mercado MD (07/25/2018 1:59 PM) [id number]
[2018-07-25] MEDS: CARBIDOPA/LEVODOPA 25/100MG TABLET PO SCH ×2 (14:42→18:40)
[2018-07-25 16:47] VITALS: BP 127/74
[2018-07-25 18:27] VITALS: BP 131/72
[2018-07-25] MEDS: PIPERACILLIN/TAZOBACTAM 3.375 GM in IV NORMAL SALINE 50ML 50 ML IV SCH (18:45)
[2018-07-25 19:43] VITALS: BP 173/80
[2018-07-25] MEDS ORDERED: CARBIDOPA/LEVODOPA CR 25/100MG TABLET.SA PO SCH (21:00)
[2018-07-25] MEDS ORDERED: [UNRECOGNIZED DRUG - OTHER] IV SCH (21:00)
[2018-07-25] MEDS ORDERED: VANCOMYCIN HCL IN DEXTROSE IV SCH (21:00)
[2018-07-25] MEDS: FERROUS SULFATE 325 MG TABLET. PO SCH (22:03)
[2018-07-25] MEDS: ASCORBIC ACID 500 MG TABLET PO SCH (22:04)
[2018-07-25] MEDS: OXYBUTYNIN CHLORIDE 5 MG TABLET PO SCH (22:04)
[2018-07-25] MEDS: DOCUSATE SODIUM 100 MG CAPSULE PO SCH (22:04)
[2018-07-25] MEDS: SIMVASTATIN 10 MG TABLET PO SCH (22:04)
[2018-07-25] MEDS: LACTOBACILLUS RHAMNOSUS GG 1 CAPSULE. PO SCH (22:04)
[2018-07-25] MEDS: APIXABAN 2.5 MG TABLET PO SCH (22:05)
[2018-07-25] MEDS: FAMOTIDINE 20 MG TABLET PO SCH (22:05)
[2018-07-25] MEDS: METOPROLOL TART IMMED RELEASE 50 MG TABLET PO SCH (22:05)
[2018-07-25] MEDS: POLYVINYL ALCOHOL 1.4% OPHTH SOLUTION 15ML BOTTLE. OU SCH (22:05)
[2018-07-25] MEDS: VANCOMYCIN 1 GM in IV NORMAL SALINE 250ML 250 ML IV SCH (22:06)
[2018-07-25] MEDS: CARBIDOPA/LEVODOPA CR 25/100MG TABLET.SA PO SCH (22:06)
[2018-07-25] MEDS: NYSTATIN TOPICAL POWDER 15GM BOTTLE. TP SCH (22:07)
[2018-07-25 23:24] VITALS: BP 182/87
[2018-07-26] MEDS: PIPERACILLIN/TAZOBACTAM 3.375 GM in IV NORMAL SALINE 50ML 50 ML IV SCH ×5 (00:35→23:54)
[2018-07-26 03:54] VITALS: BP 120/79
[2018-07-26] MEDS: CARBIDOPA/LEVODOPA 25/100MG TABLET PO SCH ×4 (05:51→17:38)
[2018-07-26 06:13] VITALS: BP 166/83
[2018-07-26 06:38] LABS: BASO # 0.1 x10^3/uL (0.0-0.2); BASO % 1 % (0-3); EOS # 0.5 x10^3/uL (0.0-0.7); EOS % 11 % (0-3); HEMATOCRIT 35.3 % (39.0-53.0); HEMOGLOBIN 11.5 g/dL (13.0-17.5); LYMPH # 0.7 x10^3/uL (1.0-4.8); LYMPH % 15 % (24-48); MEAN CORPUSCULAR HEMOGLOBIN 28 pg (25-35); MEAN CORPUSCULAR HGB CONC 32 g/dL (31-37); MEAN CORPUSCULAR VOLUME 86 fL (79-100); MONO # 0.6 x10^3/uL (0.0-1.1); MONO % 14 % (0-9); NEUT # 2.8 x10^3uL (1.8-7.7); NEUT % 59 % (31-73); PLATELET COUNT 313 x10^3/uL (140-400); RED CELL DISTRIBUTION WIDTH 18.2 % (11.5-14.5); WHITE BLOOD COUNT 4.8 x10^3/uL (4.0-11.0)
[2018-07-26 06:47] LABS: ALBUMIN 2.9 g/dL (3.4-5.0); ALBUMIN/GLOBULIN RATIO 0.9 (1.0-1.7); CALCIUM 8.8 mg/dL (8.5-10.1); CREATININE 0.8 mg/dL (0.7-1.3); GFR 92.5; POTASSIUM 3.5 mmol/L (3.5-5.1); TOTAL BILIRUBIN 0.4 mg/dL (0.2-1.0); TOTAL PROTEIN 6.3 g/dL (6.4-8.2)
[2018-07-26] MEDS ORDERED: POLYETHYLENE GLYCOL 3350 17 GM PACKET. PO PRN (09:00)
[2018-07-26] MEDS: POLYVINYL ALCOHOL 1.4% OPHTH SOLUTION 15ML BOTTLE. OU SCH ×2 (09:21→21:08)
[2018-07-26] MEDS: VANCOMYCIN 1 GM in IV NORMAL SALINE 250ML 250 ML IV SCH ×2 (09:21→21:15)
[2018-07-26] MEDS: LACTOBACILLUS RHAMNOSUS GG 1 CAPSULE. PO SCH ×2 (09:22→21:17)
[2018-07-26] MEDS: SENNOSIDES/DOCUSATE 8.6/50MG TABLET. PO SCH (09:22)
[2018-07-26] MEDS: FERROUS SULFATE 325 MG TABLET. PO SCH ×2 (09:22→21:00)
[2018-07-26] MEDS: ASCORBIC ACID 500 MG TABLET PO SCH ×2 (09:22→21:16)
[2018-07-26] MEDS: FAMOTIDINE 20 MG TABLET PO SCH ×2 (09:22→21:17)
[2018-07-26] MEDS: APIXABAN 2.5 MG TABLET PO SCH ×2 (09:22→21:17)
[2018-07-26] MEDS: OXYBUTYNIN CHLORIDE 5 MG TABLET PO SCH ×2 (09:22→21:16)
[2018-07-26] MEDS: DOCUSATE SODIUM 100 MG CAPSULE PO SCH ×2 (09:23→21:00)
[2018-07-26] MEDS: MULTIVITAMIN with MINERAL TABLET. PO SCH (09:23)
[2018-07-26] MEDS: LISINOPRIL 10 MG TABLET PO SCH (09:24)
[2018-07-26] MEDS: METOPROLOL TART IMMED RELEASE 50 MG TABLET PO SCH ×2 (09:25→21:16)
[2018-07-26] MEDS: NYSTATIN TOPICAL POWDER 15GM BOTTLE. TP SCH ×2 (10:33→21:19)
[2018-07-26 15:01] VITALS: BP 108/66
--- NOTE | 2018-07-26 16:27 | HP ---
ADMIT DATE: 07/25/2018 HISTORY OF PRESENT ILLNESS: The patient is an 83-year-old male patient, who was admitted originally as a transfer from [facility] where he was admitted with infected left hip prostheses and was started on IV antibiotic in the form of vancomycin as well as Zosyn with the plan to continue treatment for 6 weeks and was admitted to swing bed at [facility]. I saw him yesterday at the request of his and the patient has marked altered mental status, was unable to follow commands. He seemed to have problem with his vision. He in fact has problems in feeding himself and therefore we discharged him to acute care and to investigate him further, and we did a CT scan of the head as well as lab work, and consulted the neurologist as well as the potato sorter as I feel that the patient has problem with his vision that might be contributing to his confusion, ability to do some tasks. PAST MEDICAL HISTORY: Significant for hypertension, hyperlipidemia, valvular heart disease, Parkinson's disease, dementia, benign prostatic hypertrophy, prostate cancer, urinary incontinence. He has left hip fracture, status post left hip hemiarthroplasty. He also had another fall, status post periprosthetic fracture status post rewiring. 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 PAST SURGICAL HISTORY: Significant for left hip hemiarthroplasty, status post rewiring, periprosthetic fracture, revision due to infection. ALLERGIES: He has no known drug allergies. FAMILY HISTORY: Unremarkable. SOCIAL HISTORY: He is , lives with his . He does not smoke, drink alcohol or use any recreational drugs. REVIEW OF SYSTEMS: As per history of present illness. PHYSICAL EXAMINATION: GENERAL: On examining him, he looked pale, but no jaundice, cyanosis, or thyromegaly. No jugular venous distention. No lower limb edema. VITAL SIGNS: His heart rate was 76, blood pressure was 166/83, temperature was 98.1, respiratory rate 20, and oxygen saturation was 96%. HEAD, EYES, EARS, NOSE, AND THROAT: Normocephalic, atraumatic. NECK: Supple. HEART: Showed normal first and second heart sounds with no gallop, rub or murmur. CHEST: Clear to auscultation. No crepitation or rhonchi. ABDOMEN: Distended, soft, nontender. No guarding or rigidity. No organomegaly. All hernial orifices intact. Bowel sounds normal. NEUROLOGIC: When I saw him, he was awake, alert. Denied any complaint. All his cranial nerves are grossly intact. He obviously requires assistance to stand up and walk with a walker. He has prominent parkinsonian features. Also to me seemed to have problem with his vision and I am not really sure whether he has a bare-metal Vision or also has cerebellar infarct that caused him to be very unsteady and past pointing. LABORATORY DATA: We did order some lab work this morning, which showed his white cell count to be 4800, hemoglobin 11.5, hematocrit 35, MCV 86 and platelet count of 313,000. His chemistry showed a serum sodium 141, potassium 3.5, chloride 105, bicarbonate 28, anion gap of 8, BUN 11, creatinine 0.8, estimated GFR was 92 mL per minute. Glucose was 89, calcium was 8.8, magnesium 2. Total bilirubin, AST, ALT were normal. Alkaline phosphatase was slightly elevated. Total protein was 6.3, albumin 2.9. Vancomycin trough level was 13.4. IMPRESSION: In summary, this is an 83-year-old male patient who is here as he was admitted on 06/24/2018 for treatment of his prosthetic infection where he grows multiple organisms including methicillin-resistant Staphylococcus aureus, Pseudomonas, Enterococcus. He is now on Zosyn and vancomycin. The plan is to treat for 6 weeks. He has altered mental status, impaired vision. We did CT scan of the head, which was unremarkable. We did consult Dr. Hernandez, the neurologist as well as Dr. Mamadou Myers, the potato sorter as I feel that part of his acute decline is probably related to his visual impairment versus cerebellar ataxia and weakness. ANA FINNEGAN MD DR: HÉCTOR/nathaniel JOB#: [id number] / [id number]
[2018-07-26 18:39] VITALS: BP 108/64
[2018-07-26] MEDS: SIMVASTATIN 10 MG TABLET PO SCH (21:16)
[2018-07-26] MEDS: CARBIDOPA/LEVODOPA CR 25/100MG TABLET.SA PO SCH (22:21)
[2018-07-26 22:48] VITALS: BP 158/77
[2018-07-27 05:15] VITALS: BP 174/103
[2018-07-27] MEDS: PIPERACILLIN/TAZOBACTAM 3.375 GM in IV NORMAL SALINE 50ML 50 ML IV SCH ×4 (06:21→23:25)
[2018-07-27] MEDS: CARBIDOPA/LEVODOPA 25/100MG TABLET PO SCH ×4 (06:21→18:15)
[2018-07-27] MEDS: SENNOSIDES/DOCUSATE 8.6/50MG TABLET. PO SCH (08:28)
[2018-07-27] MEDS: FAMOTIDINE 20 MG TABLET PO SCH ×2 (08:29→20:05)
[2018-07-27] MEDS: MULTIVITAMIN with MINERAL TABLET. PO SCH (08:29)
[2018-07-27] MEDS: LISINOPRIL 10 MG TABLET PO SCH (08:30)
[2018-07-27] MEDS: ASCORBIC ACID 500 MG TABLET PO SCH ×2 (08:30→20:04)
[2018-07-27] MEDS: METOPROLOL TART IMMED RELEASE 50 MG TABLET PO SCH ×2 (08:30→20:04)
[2018-07-27] MEDS: APIXABAN 2.5 MG TABLET PO SCH ×2 (08:30→20:04)
[2018-07-27] MEDS: FERROUS SULFATE 325 MG TABLET. PO SCH ×2 (08:31→20:05)
[2018-07-27] MEDS: OXYBUTYNIN CHLORIDE 5 MG TABLET PO SCH ×2 (08:31→20:04)
[2018-07-27] MEDS: DOCUSATE SODIUM 100 MG CAPSULE PO SCH ×2 (08:31→20:05)
[2018-07-27] MEDS: LACTOBACILLUS RHAMNOSUS GG 1 CAPSULE. PO SCH ×2 (08:31→20:04)
[2018-07-27] MEDS: POLYVINYL ALCOHOL 1.4% OPHTH SOLUTION 15ML BOTTLE. OU SCH ×2 (08:32→20:05)
[2018-07-27] MEDS: VANCOMYCIN 1 GM in IV NORMAL SALINE 250ML 250 ML IV SCH ×2 (08:33→20:06)
[2018-07-27] MEDS: NYSTATIN TOPICAL POWDER 15GM BOTTLE. TP SCH ×2 (08:49→20:05)
[2018-07-27] MEDS ORDERED: DEXAMETHASONE 0.1% OPHTH SOLUTION 5ML BOTTLE. OU SCH (09:00)
[2018-07-27] MEDS ORDERED: ALTEPLASE 2 MG VIAL INT CAT ONE (10:00)
[2018-07-27 11:15] VITALS: BP 138/79
[2018-07-27] MEDS ORDERED: CHOLECALCIFEROL (VITAMIN D3) 50,000 UNIT CAPSULE PO SCH (17:00)
[2018-07-27 18:00] VITALS: BP 104/62
--- NOTE | 2018-07-27 20:01 | PN ---
DATE: 07/26/2018 REFERRING PHYSICIAN: Coty Camara MD SUBJECTIVE: The patient denies new medical or neurological complaints; however, he continues to have some slurred speech, intermittent confusion, and mild resting tremor of the hands OBJECTIVE: GENERAL: Well-developed, well-nourished male, not in acute distress. VITAL SIGNS: Blood pressure 158/77, respiratory rate 20, pulse is 73 and regular, temperature 99.1, oxygen saturation 93% on room air. HEENT: Normocephalic, atraumatic, otherwise unremarkable. NECK: Supple. Negative for carotid bruit, lymphadenopathy, or thyromegaly. LUNGS: Clear to A and P. CARDIOVASCULAR: Regular rate and rhythm, normal S1, S2. There is no S3, S4, or murmur. ABDOMEN: Soft. Bowel sounds positive. EXTREMITIES: Negative for cyanosis, clubbing, pitting edema. NEUROLOGICAL EXAM: Mental Status: The patient is alert and oriented to himself and place. Speech is somewhat fluent. There is no language dysfunction. The patient recalls 1/3 immediately and after 1 and 3 minutes. Judgment and abstract thinkings are fair. The patient denies hallucination or delusion. Cranial nerves are intact except for hearing loss bilaterally. Motor examination revealed no focal muscle bulk was seen. The tone is normal. The strength is 4/5 throughout. Sensory examination revealed normal pinprick and light touch senses throughout. Deep tendon reflexes were symmetric and hypoactive without pathology with absent Achilles responses. Gait: The patient has unsteady stand, he uses a walker for ambulation. LABORATORY DATA: CBC revealed white cells of 4800, hemoglobin 11.5, hematocrit 35.3, platelet count 313,000. Chemistry revealed sodium of 141, potassium 3.5, chloride 105, CO2 28, BUN 11, creatinine 0.8, glucose 89, calcium is 8.8. Liver enzymes, low ALT, normal AST, alkaline phosphatase is high at 360. IMPRESSION: 1. Intermittent encephalopathy, probably due to underlying systemic infection consistent with the post prosthetic infection and positive MRSA pseudomonas or enterococcus. 2. Dementia. 3. Status post left hip replacement and rewiring, secondary seizure, Parkinson disease, presented with intermittent and mild resting tremor, more prominent on the left side, urinary incontinence with prostate hypertrophy. RECOMMENDATIONS: 1. Continue with current management initiated by Dr. Camara: 2. Continue with current medications. 3. Continue with physical therapy. M Zaire BISHOP MD DR: KEITH/nathaniel JOB#: [id number] / [id number]
[2018-07-27] MEDS: SIMVASTATIN 10 MG TABLET PO SCH (20:05)
[2018-07-27] MEDS ORDERED: CARBIDOPA/LEVODOPA CR 25/100MG TABLET.SA PO SCH (22:30)
--- NOTE | 2018-07-27 23:56 | PN ---
DATE: 07/27/2018 SUBJECTIVE: The patient continued to be confused and disoriented at times. He follows 1-step commands. The patient has "restless night." His at bedside she stated she is "home sick." The patient could not provide any complaints at his time. OBJECTIVE: GENERAL: Well-developed, well-nourished male, not in acute distress. VITAL SIGNS: Blood pressure 174/103, respiratory rate 22, pulse is 94 and regular, temperature 98.4, oxygen saturation 94% on room air. HEENT: Normocephalic, atraumatic, otherwise unremarkable. NECK: Supple. Negative for carotid bruit, lymphadenopathy, or thyromegaly. LUNGS: Clear to A and P. CARDIOVASCULAR: Regular rate and rhythm. Normal S1, S2. ABDOMEN: Soft. Bowel sounds positive. EXTREMITIES: Negative for cyanosis, clubbing, or pitting edema. NEUROLOGICAL EXAM: Mental Status: The patient is awake and oriented to himself. He follows 1-step commands. Memory, judgment, and abstract thinking are fair. The patient denies hallucination or delusion. The patient does not have any hallucination. Cranial nerves grossly intact. No focal motor muscle bulk was seen. The strength was 4/5 throughout. Sensory examination revealed normal pinprick and light touch senses. Deep tendon reflexes were symmetric and hypoactive with absent Achilles responses. Gait not tested at this time. IMPRESSION: 1. Acute encephalopathy. 2. Status post multiple left hip surgeries and re-wiring, complicated with Methicillin-resistant Staphylococcus aureus, Pseudomonas and Enterococcus infection affecting the prosthesis of the left hip. 3. Multiple medical problems include hypertension, hyperlipidemia, Parkinson disease, urinary incontinence, and prostate hypertrophy. 4. Dementia to be ruled out. RECOMMENDATIONS: 1. Continue with current management initiated by Dr. Camara. 2. We will arrange for EEG to be done on outpatient basis. M Zaire BISHOP MD DR: KEITH/nathaniel JOB#: [id number] / [id number]
[2018-07-28 00:21] VITALS: BP 179/73
[2018-07-28] MEDS: PIPERACILLIN/TAZOBACTAM 3.375 GM in IV NORMAL SALINE 50ML 50 ML IV SCH ×2 (05:56→12:20)
[2018-07-28 06:24] VITALS: BP 168/98
[2018-07-28] MEDS: CARBIDOPA/LEVODOPA 25/100MG TABLET PO SCH ×3 (06:34→14:47)
[2018-07-28] MEDS: LISINOPRIL 10 MG TABLET PO SCH (08:47)
[2018-07-28] MEDS: APIXABAN 2.5 MG TABLET PO SCH (08:47)
[2018-07-28] MEDS: MULTIVITAMIN with MINERAL TABLET. PO SCH (08:47)
[2018-07-28] MEDS: METOPROLOL TART IMMED RELEASE 50 MG TABLET PO SCH (08:48)
[2018-07-28] MEDS: FERROUS SULFATE 325 MG TABLET. PO SCH (08:48)
[2018-07-28] MEDS: ASCORBIC ACID 500 MG TABLET PO SCH (08:48)
[2018-07-28] MEDS: LACTOBACILLUS RHAMNOSUS GG 1 CAPSULE. PO SCH (08:48)
[2018-07-28] MEDS: FAMOTIDINE 20 MG TABLET PO SCH (08:48)
[2018-07-28] MEDS: OXYBUTYNIN CHLORIDE 5 MG TABLET PO SCH (08:48)
[2018-07-28] MEDS: VANCOMYCIN 1 GM in IV NORMAL SALINE 250ML 250 ML IV SCH (08:49)
[2018-07-28] MEDS: POLYVINYL ALCOHOL 1.4% OPHTH SOLUTION 15ML BOTTLE. OU SCH (08:50)
[2018-07-28] MEDS: DOCUSATE SODIUM 100 MG CAPSULE PO SCH (08:51)
[2018-07-28] MEDS: SENNOSIDES/DOCUSATE 8.6/50MG TABLET. PO SCH (08:51)
[2018-07-28 08:52] LABS: VANC TR 21.7 mcg/mL (10.0-20.0)
[2018-07-28] MEDS: NYSTATIN TOPICAL POWDER 15GM BOTTLE. TP SCH (08:53)
[2018-07-28] MEDS ORDERED: VANCOMYCIN 750 MG in IV NORMAL SALINE 250ML 250 ML IV SCH (09:00)
--- NOTE | 2018-07-28 10:22 | PN ---
DATE: 07/27/2018 SUBJECTIVE: The patient is resting comfortably in his recliner, in no apparent distress. He continued to be somewhat confused. He was seen by and in his comment, he said no ocular cause was present to vision problem or coordination difficulty and he said that might be related to Parkinsonism related or medication and to await Neurology consult and resume Pred Forte 1% daily in both eyes. He was seen also by Dr. Hernandez and apparently ordered some lab work including his B12 and vitamin D as well as Treponema pallidum antibodies. PHYSICAL EXAMINATION: GENERAL: When I saw him this afternoon, he looked well and was clearly in no apparent respiratory distress, was pale, but no jaundice, cyanosis or thyromegaly. No jugular venous distention. No limb edema. VITAL SIGNS: His heart rate was 75, blood pressure 138/79, temperature was 98.3, respiratory rate 20, and oxygen saturation was 93%. HEAD, EYES, EARS, NOSE AND THROAT: Showed normocephalic, atraumatic. NECK: Supple. HEART: Showed normal first and second heart sounds with no gallop, rub or murmur. CHEST: Clear to auscultation. No crepitation or rhonchi. ABDOMEN: Distended, soft, and nontender. No guarding or rigidity. No organomegaly. All hernial orifice intact. Bowel sounds normal. NEUROLOGIC: He was awake, alert, has a slow monotonous speech, sometimes it is difficult to understand. All his cranial nerves are intact. He moves his extremities, although according to the nursing staff, he requires more assistance now. LABORATORY DATA: Showed that his white cell count is 4800, hemoglobin 11.5, hematocrit 35, MCV 86, and platelet count of 313,000. His chemistry showed a serum sodium 141, potassium 3.5, chloride 105, bicarbonate 28, anion gap of 8, BUN 11, creatinine 0.8, estimated GFR was 92 mL per minute. His glucose was 89, calcium was 8.8, magnesium was 2. Total bilirubin, AST, ALT, alkaline phosphatase were normal. His total alkaline phosphatase is elevated. Total protein 6.3, albumin 2.9. His vitamin B12 was 377, and 25-hydroxy vitamin D was 26.5. PLAN: My plan is to start him on vitamin D 50,000 international unit once a week. Await the evaluation by Dr. Hernandez and hopefully tomorrow, we will discharge him to swing bed to continue the intravenous antibiotic for the rest of 6 weeks. AAN FINNEGAN MD DR: HÉCTOR/nathaniel JOB#: [id number] / [id number]
[2018-07-28 15:37] VITALS: BP 165/77
--- NOTE | 2018-07-29 00:24 | DS ---
DATE OF DISCHARGE: 07/28/2018 HOSPITAL COURSE: The patient was admitted to acute care from swing bed as the patient is noted to have altered mental status, has also worsening cognitive impairment and what seemed to be even visual impairment and I did his lab work and also arrange for CT scan of the head without contrast. We did consult the seamless tube roller to evaluate him. His lab works were within acceptable range. His CT scan of the head was also unremarkable and showed no acute intracranial finding. He was seen by Dr. Mamadou Myers and he said that his visual acuity is normal and that his altered mental status may be related to Parkinson disease or the medication. He was seen in consultation by Dr. Hernandez who also ordered lab work and basically recommended to continue with current medication. His dementia workup was mostly unremarkable and he also ordered an EEG as an outpatient as he remained hemodynamically stable, afebrile. A decision was made to discharge him back to swing bed to continue with IV antibiotic for a total of 42 days. We will talk to the Infectious Disease specialist to decide on further management afterward. PHYSICAL EXAMINATION: GENERAL: When I saw him today, he looked well and was clearly in no apparent respiratory distress. No pallor, jaundice, cyanosis, or thyromegaly. No jugular venous distention. No lower limb edema. VITAL SIGNS: His heart rate was 76, blood pressure was 160/83, temperature was 98, respiratory rate was 20, and oxygen saturation was 96% on room air. HEAD, EYES, EARS, NOSE, AND THROAT: Showed normocephalic, atraumatic. NECK: Supple. HEART: Showed normal first and second heart sounds with no gallop, rub, or murmur. CHEST: Clear to auscultation. No crepitation or rhonchi. ABDOMEN: Distended, soft, nontender. No guarding or rigidity. No organomegaly. Hernial orifice intact. Bowel sounds normal. NEUROLOGIC: He was awake, alert, responding appropriately. All cranial nerves intact. His performance is variable. He has prominent parkinsonian features. LABORATORY DATA: He has had lab work done, which showed his white cell count to be 4800, hemoglobin 11.5, hematocrit 35, MCV was 86, and platelet count of 313,000. His chemistry showed a serum sodium of 141, potassium 3.9, chloride 107, bicarbonate 28, anion gap of 8, BUN 25, creatinine was 0.8, estimated GFR was 92 mL per minute. Her lactic acid was 0.9, glucose 89, calcium was 8.8. Total bilirubin, AST, ALT are normal. Alkaline phosphatase slightly elevated. His serum B12 was high at 377. TSH was normal. His Treponema pallidum antibody was nonreactive. Urinalysis was unremarkable as well as toxic screen. DISCHARGE MEDICATIONS: The patient was discharged back to swing bed to continue on Tylenol 650 mg every 4 hours, ascorbic acid 500 mg twice a day, carbidopa/levodopa 25/100 two tablets 4 times a day for Parkinson's disease and 1 tablet at bedtime, dexamethasone for Maxidex 1 drop to both eyes on Wednesday, Wednesday and Wednesday, docusate sodium 100 mg twice a day, ferrous sulfate 325 mg twice a day, lactobacillus rhamnosus 1 twice a day, metoprolol tartrate 50 mg twice a day, multivitamin 1 tablet once a day, oxybutynin chloride for Ditropan XL 5 mg twice a day, piperacillin tazobactam 3.375 grams IV every 6 hours, polyethylene glycol 17 grams daily p.r.n. for constipation, polyvinyl chloride eye drops 1 drop to both eyes twice a day, senna-S 1 tablet once a day, simvastatin 10 mg at bedtime, and vancomycin 1.25 grams IV q.12 hourly. FINAL DISCHARGE DIAGNOSES: Altered mental status, probably multifactorial. His dementia workup was unremarkable. CT scan was unremarkable. He was seen by Dr. Mamadou Myers who stated that his visual acuity is normal and his mental status might be related to medications for the Parkinson's disease itself. He has multiple other medical problems including hypertension, hyperlipidemia, valvular heart disease, Parkinson's disease, dementia, benign prostatic hypertrophy, prostate cancer, urinary incontinence, left hip fracture, status post left hip hemiarthroplasty. 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 ANA FINNEGAN MD DR: HÉCTOR/nathaniel JOB#: [id number] / [id number]
== END 2018-07-28 16:10 | disposition swing bed (61) | DRG 72 ==
LOC: LND 12:35
PROVIDERS: ADMIT Internal Medicine; ATTEND Internal Medicine
DX: G93.40 Encephalopathy, unspecified (principal); E78.5 Hyperlipidemia, unspecified; G20 Parkinson's disease; F02.80 Dementia in other diseases classified elsewhere, unspecified severity, without behavioral disturbance, psychotic disturbance, mood disturbance, and anxiety; N40.1 Benign prostatic hyperplasia with lower urinary tract symptoms; N39.498 Other specified urinary incontinence; H54.7 Unspecified visual loss; I10 Essential (primary) hypertension; Z96.642 Presence of left artificial hip joint; Z85.46 Personal history of malignant neoplasm of prostate; Z79.899 Other long term (current) drug therapy
CPT/HCPCS: 36415; 70450; 80053; 80202; 82306; 82607; 83735; 85025; 86592; J2543; J2997; J3370; J7050; 97110; 97116; 97530

== ENCOUNTER 2018-07-28 14:58 | Inpatient (IN) | payer MEDICARE, BC ==
[~2018-07-28] VITALS: Ht 182.9 cm; Wt 84.9 kg
[2018-07-28 18:00] VITALS: BP 138/72
[2018-07-28] MEDS: CARBIDOPA/LEVODOPA 25/100MG TABLET PO SCH (18:37)
[2018-07-28] MEDS: PIPERACILLIN/TAZOBACTAM 3.375 GM in IV NORMAL SALINE 50ML 50 ML IV SCH (19:26)
[2018-07-28] MEDS: SIMVASTATIN 10 MG TABLET PO SCH (20:59)
[2018-07-28] MEDS: VANCOMYCIN 750 MG in IV NORMAL SALINE 250ML 250 ML IV SCH (20:59)
[2018-07-28] MEDS: LACTOBACILLUS RHAMNOSUS GG 1 CAPSULE. PO SCH (21:00)
[2018-07-28] MEDS: ASCORBIC ACID 500 MG TABLET PO SCH (21:00)
[2018-07-28] MEDS ORDERED: [UNRECOGNIZED DRUG - OTHER] IV SCH (21:00)
[2018-07-28] MEDS: METOPROLOL TART IMMED RELEASE 50 MG TABLET PO SCH (21:00)
[2018-07-28] MEDS: ACETAMINOPHEN 325 MG TABLET PO PRN (21:00)
[2018-07-28] MEDS: OXYBUTYNIN CHLORIDE 5 MG TABLET PO SCH (21:00)
[2018-07-28] MEDS ORDERED: CARBIDOPA PO SCH (21:00)
[2018-07-28] MEDS: FERROUS SULFATE 325 MG TABLET. PO SCH (21:00)
[2018-07-28] MEDS ORDERED: LEVODOPA PO SCH (21:00)
[2018-07-28] MEDS: DOCUSATE SODIUM 100 MG CAPSULE PO SCH (21:00)
[2018-07-28] MEDS ORDERED: VANCOMYCIN HCL IN DEXTROSE IV SCH (21:00)
[2018-07-28] MEDS: VANCOMYCIN PER PHARMACY MC PRN (21:56)
[2018-07-28] MEDS: CARBIDOPA/LEVODOPA CR 25/100MG TABLET.SA PO SCH (22:40)
[2018-07-29] MEDS: PIPERACILLIN/TAZOBACTAM 3.375 GM in IV NORMAL SALINE 50ML 50 ML IV SCH ×4 (00:12→17:47)
[2018-07-29 06:25] VITALS: BP 183/81
[2018-07-29] MEDS: CARBIDOPA/LEVODOPA 25/100MG TABLET PO SCH ×4 (06:29→18:18)
[2018-07-29] MEDS: ASCORBIC ACID 500 MG TABLET PO SCH ×3 (08:31→20:55)
[2018-07-29] MEDS: FERROUS SULFATE 325 MG TABLET. PO SCH ×3 (08:31→20:55)
[2018-07-29] MEDS: METOPROLOL TART IMMED RELEASE 50 MG TABLET PO SCH ×2 (08:31→20:55)
[2018-07-29] MEDS: LACTOBACILLUS RHAMNOSUS GG 1 CAPSULE. PO SCH ×3 (08:31→20:55)
[2018-07-29] MEDS: OXYBUTYNIN CHLORIDE 5 MG TABLET PO SCH ×3 (08:31→20:55)
[2018-07-29] MEDS: DOCUSATE SODIUM 100 MG CAPSULE PO SCH ×3 (08:31→20:55)
[2018-07-29] MEDS: SENNOSIDES/DOCUSATE 8.6/50MG TABLET. PO SCH (08:36)
[2018-07-29] MEDS: MULTIVITAMIN with MINERAL TABLET. PO SCH (08:36)
[2018-07-29] MEDS ORDERED: POLYETHYLENE GLYCOL 3350 17 GM PACKET. PO PRN (09:00)
[2018-07-29] MEDS: VANCOMYCIN 750 MG in IV NORMAL SALINE 250ML 250 ML IV SCH ×2 (09:02→22:28)
[2018-07-29 18:32] VITALS: BP 157/75
[2018-07-29] MEDS: SIMVASTATIN 10 MG TABLET PO SCH (20:55)
[2018-07-29 21:23] LABS: VANC TR 18.4 mcg/mL (10.0-20.0)
[2018-07-29] MEDS: VANCOMYCIN PER PHARMACY MC PRN (22:22)
[2018-07-29] MEDS: ACETAMINOPHEN 325 MG TABLET PO PRN (22:28)
[2018-07-29] MEDS: CARBIDOPA/LEVODOPA CR 25/100MG TABLET.SA PO SCH (22:28)
[2018-07-30] MEDS: PIPERACILLIN/TAZOBACTAM 3.375 GM in IV NORMAL SALINE 50ML 50 ML IV SCH ×4 (00:05→18:02)
[2018-07-30 06:08] VITALS: BP 187/93
[2018-07-30] MEDS: CARBIDOPA/LEVODOPA 25/100MG TABLET PO SCH ×4 (06:28→18:25)
[2018-07-30] MEDS: DOCUSATE SODIUM 100 MG CAPSULE PO SCH ×2 (09:33→20:41)
[2018-07-30] MEDS: VANCOMYCIN 750 MG in IV NORMAL SALINE 250ML 250 ML IV SCH ×2 (09:33→20:42)
[2018-07-30] MEDS: FERROUS SULFATE 325 MG TABLET. PO SCH ×2 (09:34→20:41)
[2018-07-30] MEDS: OXYBUTYNIN CHLORIDE 5 MG TABLET PO SCH ×2 (09:34→20:41)
[2018-07-30] MEDS: METOPROLOL TART IMMED RELEASE 50 MG TABLET PO SCH ×2 (09:34→20:41)
[2018-07-30] MEDS: LACTOBACILLUS RHAMNOSUS GG 1 CAPSULE. PO SCH ×2 (09:34→20:41)
[2018-07-30] MEDS: ASCORBIC ACID 500 MG TABLET PO SCH ×2 (09:35→20:41)
[2018-07-30] MEDS: MULTIVITAMIN with MINERAL TABLET. PO SCH (09:35)
[2018-07-30] MEDS: SENNOSIDES/DOCUSATE 8.6/50MG TABLET. PO SCH (09:35)
[2018-07-30 18:28] VITALS: BP 113/67
[2018-07-30] MEDS: SIMVASTATIN 10 MG TABLET PO SCH (20:41)
[2018-07-30] MEDS: CARBIDOPA/LEVODOPA CR 25/100MG TABLET.SA PO SCH (22:30)
[2018-07-30] MEDS: ACETAMINOPHEN 325 MG TABLET PO PRN (22:30)
[2018-07-31 05:39] VITALS: BP 179/84
[2018-07-31] MEDS: PIPERACILLIN/TAZOBACTAM 3.375 GM in IV NORMAL SALINE 50ML 50 ML IV SCH ×5 (06:05→17:54)
[2018-07-31] MEDS: CARBIDOPA/LEVODOPA 25/100MG TABLET PO SCH ×4 (06:08→17:54)
[2018-07-31] MEDS: OXYBUTYNIN CHLORIDE 5 MG TABLET PO SCH ×2 (09:02→21:17)
[2018-07-31] MEDS: MULTIVITAMIN with MINERAL TABLET. PO SCH (09:02)
[2018-07-31] MEDS: LACTOBACILLUS RHAMNOSUS GG 1 CAPSULE. PO SCH ×2 (09:02→21:17)
[2018-07-31] MEDS: SENNOSIDES/DOCUSATE 8.6/50MG TABLET. PO SCH (09:02)
[2018-07-31] MEDS: FERROUS SULFATE 325 MG TABLET. PO SCH ×3 (09:02→21:27)
[2018-07-31] MEDS: ASCORBIC ACID 500 MG TABLET PO SCH ×3 (09:03→21:28)
[2018-07-31] MEDS: METOPROLOL TART IMMED RELEASE 50 MG TABLET PO SCH ×2 (09:03→21:18)
[2018-07-31] MEDS: DOCUSATE SODIUM 100 MG CAPSULE PO SCH ×3 (09:03→21:27)
[2018-07-31] MEDS: VANCOMYCIN 750 MG in IV NORMAL SALINE 250ML 250 ML IV SCH ×2 (09:04→21:17)
[2018-07-31 18:23] VITALS: BP 178/93
[2018-07-31] MEDS: SIMVASTATIN 10 MG TABLET PO SCH (21:17)
[2018-07-31] MEDS: CARBIDOPA/LEVODOPA CR 25/100MG TABLET.SA PO SCH (22:23)
[2018-07-31] MEDS: ACETAMINOPHEN 325 MG TABLET PO PRN (22:23)
[2018-08-01] MEDS: PIPERACILLIN/TAZOBACTAM 3.375 GM in IV NORMAL SALINE 50ML 50 ML IV SCH ×4 (00:08→17:54)
[2018-08-01 05:52] VITALS: BP 161/96
[2018-08-01] MEDS: CARBIDOPA/LEVODOPA 25/100MG TABLET PO SCH ×4 (06:37→18:29)
[2018-08-01] MEDS: FERROUS SULFATE 325 MG TABLET. PO SCH ×2 (08:17→21:11)
[2018-08-01] MEDS: SENNOSIDES/DOCUSATE 8.6/50MG TABLET. PO SCH (08:17)
[2018-08-01] MEDS: ASCORBIC ACID 500 MG TABLET PO SCH ×2 (08:17→21:11)
[2018-08-01] MEDS: DOCUSATE SODIUM 100 MG CAPSULE PO SCH ×2 (08:17→21:10)
[2018-08-01] MEDS: LACTOBACILLUS RHAMNOSUS GG 1 CAPSULE. PO SCH ×2 (08:17→21:10)
[2018-08-01] MEDS: OXYBUTYNIN CHLORIDE 5 MG TABLET PO SCH ×2 (08:17→21:10)
[2018-08-01] MEDS: MULTIVITAMIN with MINERAL TABLET. PO SCH (08:17)
[2018-08-01] MEDS: METOPROLOL TART IMMED RELEASE 50 MG TABLET PO SCH ×2 (08:17→21:11)
[2018-08-01] MEDS: VANCOMYCIN 750 MG in IV NORMAL SALINE 250ML 250 ML IV SCH ×2 (08:45→21:10)
[2018-08-01 18:09] VITALS: BP 133/77
[2018-08-01] MEDS: SIMVASTATIN 10 MG TABLET PO SCH (21:11)
[2018-08-01] MEDS: ACETAMINOPHEN 325 MG TABLET PO PRN (21:12)
[2018-08-01] MEDS: CARBIDOPA/LEVODOPA CR 25/100MG TABLET.SA PO SCH (22:25)
[2018-08-02] MEDS: PIPERACILLIN/TAZOBACTAM 3.375 GM in IV NORMAL SALINE 50ML 50 ML IV SCH ×4 (00:06→17:50)
[2018-08-02 05:25] VITALS: BP 148/92
[2018-08-02] MEDS: CARBIDOPA/LEVODOPA 25/100MG TABLET PO SCH ×4 (06:33→17:51)
[2018-08-02] MEDS: OXYBUTYNIN CHLORIDE 5 MG TABLET PO SCH ×2 (09:25→21:11)
[2018-08-02] MEDS: LACTOBACILLUS RHAMNOSUS GG 1 CAPSULE. PO SCH ×2 (09:25→21:11)
[2018-08-02] MEDS: ASCORBIC ACID 500 MG TABLET PO SCH ×2 (09:25→21:11)
[2018-08-02] MEDS: DOCUSATE SODIUM 100 MG CAPSULE PO SCH ×2 (09:25→21:11)
[2018-08-02] MEDS: MULTIVITAMIN with MINERAL TABLET. PO SCH (09:25)
[2018-08-02] MEDS: FERROUS SULFATE 325 MG TABLET. PO SCH ×2 (09:25→21:00)
[2018-08-02] MEDS: SENNOSIDES/DOCUSATE 8.6/50MG TABLET. PO SCH (09:25)
[2018-08-02] MEDS: METOPROLOL TART IMMED RELEASE 50 MG TABLET PO SCH ×2 (09:30→21:12)
[2018-08-02 09:43] LABS: VANC TR 16.2 mcg/mL (10.0-20.0)
[2018-08-02] MEDS: VANCOMYCIN 750 MG in IV NORMAL SALINE 250ML 250 ML IV SCH ×2 (10:16→21:11)
[2018-08-02 18:10] VITALS: BP 125/72
[2018-08-02] MEDS: SIMVASTATIN 10 MG TABLET PO SCH (21:11)
[2018-08-02] MEDS: ACETAMINOPHEN 325 MG TABLET PO PRN (21:14)
[2018-08-02] MEDS: CARBIDOPA/LEVODOPA CR 25/100MG TABLET.SA PO SCH (22:31)
[2018-08-03] MEDS: PIPERACILLIN/TAZOBACTAM 3.375 GM in IV NORMAL SALINE 50ML 50 ML IV SCH ×4 (00:11→17:34)
[2018-08-03 05:53] VITALS: BP 174/82
[2018-08-03] MEDS: CARBIDOPA/LEVODOPA 25/100MG TABLET PO SCH ×4 (06:32→18:24)
[2018-08-03] MEDS: LACTOBACILLUS RHAMNOSUS GG 1 CAPSULE. PO SCH ×2 (09:05→22:17)
[2018-08-03] MEDS: DOCUSATE SODIUM 100 MG CAPSULE PO SCH ×2 (09:05→22:17)
[2018-08-03] MEDS: SENNOSIDES/DOCUSATE 8.6/50MG TABLET. PO SCH (09:05)
[2018-08-03] MEDS: ASCORBIC ACID 500 MG TABLET PO SCH ×2 (09:05→22:17)
[2018-08-03] MEDS: MULTIVITAMIN with MINERAL TABLET. PO SCH (09:06)
[2018-08-03] MEDS: METOPROLOL TART IMMED RELEASE 50 MG TABLET PO SCH ×2 (09:06→22:18)
[2018-08-03] MEDS: FERROUS SULFATE 325 MG TABLET. PO SCH ×2 (09:06→22:17)
[2018-08-03] MEDS: OXYBUTYNIN CHLORIDE 5 MG TABLET PO SCH ×2 (09:06→22:17)
[2018-08-03] MEDS: VANCOMYCIN 750 MG in IV NORMAL SALINE 250ML 250 ML IV SCH ×2 (10:19→22:15)
[2018-08-03 18:19] VITALS: BP 125/73
[2018-08-03] MEDS: ACETAMINOPHEN 325 MG TABLET PO PRN (22:17)
[2018-08-03] MEDS: SIMVASTATIN 10 MG TABLET PO SCH (22:19)
[2018-08-03] MEDS: CARBIDOPA/LEVODOPA CR 25/100MG TABLET.SA PO SCH (22:26)
[2018-08-04] MEDS: PIPERACILLIN/TAZOBACTAM 3.375 GM in IV NORMAL SALINE 50ML 50 ML IV SCH ×4 (00:35→18:24)
[2018-08-04] MEDS: CARBIDOPA/LEVODOPA 25/100MG TABLET PO SCH ×4 (06:29→18:24)
[2018-08-04 06:31] VITALS: BP 187/82
[2018-08-04] MEDS: VANCOMYCIN 750 MG in IV NORMAL SALINE 250ML 250 ML IV SCH ×2 (07:24→21:39)
[2018-08-04] MEDS: LACTOBACILLUS RHAMNOSUS GG 1 CAPSULE. PO SCH ×2 (09:25→21:43)
[2018-08-04] MEDS: ASCORBIC ACID 500 MG TABLET PO SCH ×2 (09:25→21:45)
[2018-08-04] MEDS: SENNOSIDES/DOCUSATE 8.6/50MG TABLET. PO SCH (09:25)
[2018-08-04] MEDS: DOCUSATE SODIUM 100 MG CAPSULE PO SCH ×2 (09:26→21:44)
[2018-08-04] MEDS: MULTIVITAMIN with MINERAL TABLET. PO SCH (09:26)
[2018-08-04] MEDS: METOPROLOL TART IMMED RELEASE 50 MG TABLET PO SCH ×2 (09:26→21:45)
[2018-08-04] MEDS: FERROUS SULFATE 325 MG TABLET. PO SCH ×2 (09:26→21:45)
[2018-08-04] MEDS: OXYBUTYNIN CHLORIDE 5 MG TABLET PO SCH ×2 (09:26→21:45)
[2018-08-04 18:45] VITALS: BP 122/74
[2018-08-04] MEDS: SIMVASTATIN 10 MG TABLET PO SCH (21:44)
[2018-08-04] MEDS: CARBIDOPA/LEVODOPA CR 25/100MG TABLET.SA PO SCH (22:35)
[2018-08-05] MEDS: PIPERACILLIN/TAZOBACTAM 3.375 GM in IV NORMAL SALINE 50ML 50 ML IV SCH ×2 (00:17→06:22)
[2018-08-05 06:22] VITALS: BP 169/99
[2018-08-05] MEDS: CARBIDOPA/LEVODOPA 25/100MG TABLET PO SCH (06:26)
[2018-08-05] MEDS: VANCOMYCIN 750 MG in IV NORMAL SALINE 250ML 250 ML IV SCH (07:51)
[2018-08-05] MEDS: DOCUSATE SODIUM 100 MG CAPSULE PO SCH (07:51)
[2018-08-05] MEDS: MULTIVITAMIN with MINERAL TABLET. PO SCH (07:51)
[2018-08-05] MEDS: SENNOSIDES/DOCUSATE 8.6/50MG TABLET. PO SCH (07:51)
[2018-08-05 07:52] VITALS: BP 169/99
[2018-08-05] MEDS: ASCORBIC ACID 500 MG TABLET PO SCH (07:52)
[2018-08-05] MEDS: OXYBUTYNIN CHLORIDE 5 MG TABLET PO SCH (07:52)
[2018-08-05] MEDS: METOPROLOL TART IMMED RELEASE 50 MG TABLET PO SCH (07:52)
[2018-08-05] MEDS: LACTOBACILLUS RHAMNOSUS GG 1 CAPSULE. PO SCH (07:52)
[2018-08-05] MEDS: FERROUS SULFATE 325 MG TABLET. PO SCH (07:55)
[2018-08-05] MEDS ORDERED: FAMO-63 PO (10:10)
[2018-08-05] MEDS ORDERED: CHOL10003 PO (10:10)
[2018-08-05] MEDS ORDERED: APIX2.5T PO (10:10)
[2018-08-05] MEDS ORDERED: LISI10TA2 PO (10:10)
--- NOTE | 2018-09-09 13:17 | DS ---
DATE OF DISCHARGE: 08/05/2018 HOSPITAL COURSE: The patient is an 83-year-old male patient who was admitted to swing bed on 06/24/2018 to continue with IV antibiotic and continue with the process of rehabilitation. The patient suffered a fall while trying to walk backwards on the driveway and sustained left femoral neck fracture on 05/30/2018. He underwent left hip hemiarthroplasty and was discharged back to [place] where he fell again and suffered a periprosthetic fracture. On 06/11/2018, he went back to the OR for rewiring of the fracture and added hardware. He was again discharged. However, blood culture came back positive for multiple organisms including methicillin-resistant Staphylococcus aureus, Pseudomonas and Enterococcus and the patient was admitted and was seen by the infectious disease specialist. He was started on Zosyn and vancomycin and was transferred [facility] to continue the IV antibiotic. He did well and finished his antibiotic treatment on 08/05/2018 and a decision was made to discharge him home to continue on oral antibiotic with an appointment to see infectious disease specialist as an outpatient. On the day of discharge, we contacted the office of Dr. Franklin and [place] and the lady stated to keep the PICC line for the Infectious Disease to decide on the time of its removal. PHYSICAL EXAMINATION: GENERAL: On examining him on the day of discharge, the patient looked well and was clearly in no apparent respiratory distress, pale, but no jaundice, cyanosis, or thyromegaly. No jugular venous distention. No limb edema. VITAL SIGNS: His heart rate was 79, blood pressure was 169/99, temperature was 98, respiratory rate 20, and oxygen saturation was 92%. HEAD, EYES, EARS, NOSE AND THROAT: Showed normocephalic, atraumatic. NECK: Supple. HEART: Showed normal first and second heart sounds with no gallop, rub, or murmur. CHEST: Clear to auscultation. No crepitation or rhonchi. ABDOMEN: Scaphoid, soft, nontender. NEUROLOGIC: He was awake, alert, although at times confused. All his cranial nerves are intact. He moves extremities spontaneously, although requires assistance with a walker in transfer. LABORATORY DATA: His most recent vancomycin trough level was 16.2, which is well within therapeutic range. His most recent lab work showed that his white cell count was 4800, hemoglobin 11, hematocrit 35, MCV 86 and platelet count of 313,000. His chemistry showed that his serum sodium was 141, potassium 3.5, chloride 105, bicarbonate 28, anion gap of 8, BUN 11, creatinine 0.8, estimated GFR was 92 mL per minute. His glucose was 89, calcium was 8.8, magnesium 2. Total bilirubin, AST, and ALT are normal. Alkaline phosphatase slightly elevated, but trending down. His total protein was 6.3, albumin was 2.9. His vitamin B12 was 377 and 25-hydroxy vitamin D was 26.5. His Treponema pallidum antibody was nonreactive. DISCHARGE MEDICATIONS: He was discharged home to continue on acetaminophen 650 mg every 4 hours, apixaban 2.5 mg twice a day, ascorbic acid 500 mg twice a day, carbidopa/levodopa 25/100 two tablets 4 times a day as per instruction. He is also on carbidopa/levodopa for Sinemet 25/100 one tablet at bedtime. He is on vitamin D 50,000 units once a week, dexamethasone for Maxidex 1 drop every Wednesday, Wednesday, Wednesday to both eyes, Colace 100 mg twice a day, famotidine 20 mg twice a day, ferrous sulfate 325 mg twice a day, lactobacillus rhamnosus for Culturelle 1 twice a day, lisinopril 10 mg once a day, metoprolol tartrate 50 mg twice a day, multivitamin 1 tablet once a day, oxybutynin chloride 5 mg twice a day, polyethylene glycol 17 grams daily believe, polyvinyl alcohol 1 drop to both eyes twice a day, Senna-S 1 tablet once a day, and simvastatin 10 mg once a day. We discontinued his Zosyn and piperacillin. I contacted Dr. Franklin about the transfer that he needs to be switched to oral antibiotic. He has an appointment to see them in their office. I was led to believe it is going to be next day. Unfortunately, it took about a week before he managed to see them again in their office. FINAL DISCHARGE DIAGNOSES: Fall, status post right femoral fracture, status post left hip hemiarthroplasty. Unfortunately, the patient fell again and suffered periprosthetic fracture for which he went back to the OR for a wiring of the fracture and added hardware. Unfortunately, the culture was positive for multiple organisms including MRSA, Enterococcus, and Pseudomonas. The patient was treated with IV Zosyn and vancomycin for 6 weeks and completed intravenous antibiotic treatment on 08/05/2018. The patient has multiple other medical problems including hypertension, hyperlipidemia, valvular heart disease, dementia, and Parkinson's disease. He has also benign prostatic hypertrophy, prostatic carcinoma, and urinary incontinence. ANA FINNEGAN MD DR: HÉCTOR/nathaniel JOB#: [id number] / [id number]
== END 2018-08-05 10:00 | disposition home or self-care (01) | DRG 561 ==
LOC: UNDOADMIN 14:58 → LND 14:58
PROVIDERS: ADMIT Internal Medicine; ATTEND Internal Medicine
DX: M97.02XA Periprosthetic fracture around internal prosthetic left hip joint, initial encounter (principal); C61 Malignant neoplasm of prostate; E78.5 Hyperlipidemia, unspecified; F03.90 Unspecified dementia, unspecified severity, without behavioral disturbance, psychotic disturbance, mood disturbance, and anxiety; G20 Parkinson's disease; I10 Essential (primary) hypertension; N40.0 Benign prostatic hyperplasia without lower urinary tract symptoms; R32 Unspecified urinary incontinence; B95.62 Methicillin resistant Staphylococcus aureus infection as the cause of diseases classified elsewhere; B95.2 Enterococcus as the cause of diseases classified elsewhere; B96.5 Pseudomonas (aeruginosa) (mallei) (pseudomallei) as the cause of diseases classified elsewhere; Z79.899 Other long term (current) drug therapy
CPT/HCPCS: 36415; 80202; 97163; J2543; J3370; J7050; 97110; 97112; 97116; 97530

== ENCOUNTER 2018-09-20 14:50 | Inpatient (IN) | payer MEDICARE, BC ==
[~2018-09-20] VITALS: Ht 182.9 cm; Wt 82.6 kg
[~2018-09-20 14:50] MED LIST changes: +APIX2.5T PO; +CHOL10003 PO; +FAMO-63 PO; +LISI10TA2 PO
--- NOTE | 2018-09-20 15:20 | RAD ---
CT HEAD INDICATION: CODE STROKE. ALTERED LEVEL OF CONSCIOUSNESS, ALTERED MENTAL STATUS, PARKINSON'S COMPARISON: 07/25/2018 Exposure: One or more of the following individualized dose reduction techniques were utilized for this examination: 1. Automated exposure control 2. Adjustment of the mA and/or kV according to patient size 3. Use of iterative reconstruction technique TECHNIQUE: 5 mm contiguous axial images were obtained from the skull base to the vertex in both bone and soft tissue algorithm. FINDINGS: Mild bilateral periventricular white matter hypodensities likely chronic small vessel ischemic disease. No evidence of acute intracranial hemorrhage. No extra-axial fluid collections. No mass effect or midline shift. Ventricular size is appropriate. Basal cisterns are patent. No fractures identified.Lamb-white differentiation is preserved.Globes and orbits are within normal limits. Paranasal sinuses and mastoid air cells are clear. IMPRESSION: No acute intracranial findings. Dr. Gage in ER was informed at the time of dictation. Electronically signed by: Ismael Mercado MD (09/20/2018 3:16 PM) [place] [id number]
--- NOTE | 2018-09-20 15:23 | PHYS DOC ---
Past History Past Medical History: Cancer, Hypertension, Other Past Surgical History: Cancer Surgery, Hip Replacement, Other Alcohol Use: None Drug Use: None Adult General Chief Complaint Chief Complaint: ALTERED MENTAL STATUS HPI HPI Patient is a 83 year old male patient who brought in by EMS because of altered level of shortness. Patient's reported he was fine when he took a nap about 1 PM and woke up 1330 and was confused and did not recognize his home or his that was unlike his usual episodes of confusion that usually recognize his . Patient is alert and oriented on arrival to ER around 1450 and denies any problem. Patient had a long hospitalization for symptomatic because of sepsis related to his surgery and treated for MRSA with extensive IV antibiotic and currently taking ampicillin, Cipro and doxycycline. Review of Systems Review of Systems Constitutional: Denies fever or chills [] Eyes: Denies change in visual acuity, redness, or eye pain [] HENT: Denies nasal congestion or sore throat [] Respiratory: Denies cough or shortness of breath [] Cardiovascular: No additional information not addressed in HPI [] GI: Denies abdominal pain, nausea, vomiting, bloody stools or diarrhea [] : Denies dysuria or hematuria [] Musculoskeletal: Denies back pain or joint pain [] Integument: Denies rash or skin lesions [] Neurologic: Denies headache, focal weakness or sensory changes [] Endocrine: Denies polyuria or polydipsia [] All other systems were reviewed and found to be within normal limits, except as documented in this note. Allergies Allergies Allergies Coded Allergies Type Severity Reaction Last Updated Verified I S O L A T I O N *CONTACT* Allergy Unknown 06/27/18 Yes NKMA Allergy Unknown 06/27/18 Yes Physical Exam Physical Exam Constitutional: Well developed, well nourished, no acute distress, non-toxic appearance. [] HENT: Normocephalic, atraumatic, bilateral external ears normal, oropharynx moist, no oral exudates, nose normal. [] Eyes: PERRLA, EOMI, conjunctiva normal, no discharge. [] Neck: Normal range of motion, no tenderness, supple, no stridor. [] Cardiovascular:Heart rate regular rhythm, no murmur [] Lungs & Thorax: Bilateral breath sounds clear to auscultation [] Abdomen: Bowel sounds normal, soft, no tenderness, no masses, no pulsatile masses. [] Skin: Warm, dry, no erythema, no rash. [] Back: No tenderness, no CVA tenderness. [] Extremities: No tenderness, no cyanosis, no clubbing, ROM intact, no edema, shaking hand related to Parkinson. [] Neurologic: Alert and oriented X 3, normal motor function, normal sensory function, no focal deficits noted, NIH scale is 0. [] Psychologic: Affect normal, judgement normal, mood normal. [] EKG EKG EKG interpreted by me. EKG at 1506 showed sinus rhythm with ventricular premature complexes, left parra axis, prolonged HI interval at 182, mph, RVH, poor R-wave progress in anteroseptal leads, no acute ST and T-wave abnormalities. Radiology/Procedures Radiology/Procedures [address] [address] IMAGING REPORT Signed PATIENT: TEA RAGLAND ACCOUNT: [id number] : 1935 LOCATION: ER AGE: 83 SEX: M EXAM STATUS: REG ER ORD. PHYSICIAN: GAL LINK MD REASON: altered level of consciousness PROCEDURE: PORTABLE CHEST 1V EXAM: CHEST 1 VIEW History: Altered mental status, history of Parkinson's disease COMPARISON: 07/01/2018 TECHNIQUE: Single portable radiograph of the chest FINDINGS: The cardiac silhouette is unremarkable. Mild left lung base airspace opacities likely atelectasis or infiltrate. The costophrenic sulci are clear and well demarcated. IMPRESSION: Mild left lung base airspace opacities likely atelectasis or infiltrate. Follow-up to resolution. Electronically signed by: Ismael Mercado MD (09/20/2018 3:18 PM) [place] [id number] DICTATED AND SIGNED BY: ISMAEL MERCADO MD DATE: 09/20/18 1518 CC: NAZIA AYALA MD; GAL LINK MD ~ [address] [address] IMAGING REPORT Signed PATIENT: TEA RAGLAND ACCOUNT: [id number] : 1935 LOCATION: ER AGE: 83 SEX: M EXAM STATUS: REG ER ORD. PHYSICIAN: GAL LINK MD REASON: altered level of consciousness PROCEDURE: CT CODE STROKE HEAD WO CT HEAD INDICATION: CODE STROKE. ALTERED LEVEL OF CONSCIOUSNESS, ALTERED MENTAL STATUS, PARKINSON'S COMPARISON: 07/25/2018 Exposure: One or more of the following individualized dose reduction techniques were utilized for this examination: 1. Automated exposure control 2. Adjustment of the mA and/or kV according to patient size 3. Use of iterative reconstruction technique TECHNIQUE: 5 mm contiguous axial images were obtained from the skull base to the vertex in both bone and soft tissue algorithm. FINDINGS: Mild bilateral periventricular white matter hypodensities likely chronic small vessel ischemic disease. No evidence of acute intracranial hemorrhage. No extra-axial fluid collections. No mass effect or midline shift. Ventricular size is appropriate. Basal cisterns are patent. No fractures identified.Lamb-white differentiation is preserved.Globes and orbits are within normal limits. Paranasal sinuses and mastoid air cells are clear. IMPRESSION: No acute intracranial findings. Dr. Link in ER was informed at the time of dictation. Electronically signed by: Ismael Mercado MD (09/20/2018 3:16 PM) [place] [id number] DICTATED AND SIGNED BY: ISMAEL MERCADO MD DATE: 09/20/18 1512 CC: NAZIA AYALA MD; GAL LINK MD ~ Course & Med Decision Making Course & Med Decision Making Pertinent Labs and Imaging studies reviewed. (See chart for details) Evaluation of patient in ER showed 83-year-old male patient brought in with 1 episodes of confusion that resolved at arrival to ER. Code stroke was activated on arrival of patient to ER. Patient had in her chest cannot 0 and unremarkable labs except for 10-20 WBC UA without bacteria. Patient currently on the antibiotic. Dr Camara was consulted at 1630 and agreed with admitting of patient without starting new antibiotics. Dragon Disclaimer Dragon Disclaimer This electronic medical record was generated, in whole or in part, using a voice recognition dictation system. NIH Stroke Scale: NIH Stroke Scale Response (Comments) Value Level of Consciousness: 0 Alert/Responsive 0 LOC Questions: 0 Answers both correctly 0 LOC Commands: 0 Performs both tasks 0 Best Gaze: 0 Normal 0 Visual: 0 No visual loss 0 Facial Palsy: 0 Normal, symmetrical 0 Motor - Left Arm 0 No drift 0 Motor - Right Arm 0 No drift 0 Motor - Left Leg 0 No drift 0 Motor: Right Leg 0 No drift 0 Limb Ataxia: 0 Absent 0 Sensory: 0 No loss 0 Best Language: 0 Normal 0 Dysathria: 0 Normal 0 Extinction and Inattention: 0 Normal 0 Total 0 Departure Departure: Impression: Primary Impression: Altered mental status Disposition: 09 ADMITTED INPATIENT (at 1631) Admitting Physician: Coty Camara (accepted admission at 1630) Condition: IMPROVED Referrals: NAZIA AYALA MD (PCP) GAL LINK MD Sep 20, 2018 15:23
[2018-09-20 15:26] LABS: BASO % 1 % (0-3); EOS # 0.3 x10^3/uL (0.0-0.7); EOS % 4 % (0-3); HEMATOCRIT 39.9 % (39.0-53.0); HEMOGLOBIN 13.1 g/dL (13.0-17.5); LYMPH # 1.1 x10^3/uL (1.0-4.8); LYMPH % 17 % (24-48); MEAN CORPUSCULAR HEMOGLOBIN 27 pg (25-35); MEAN CORPUSCULAR HGB CONC 33 g/dL (31-37); MEAN CORPUSCULAR VOLUME 83 fL (79-100); MONO # 0.6 x10^3/uL (0.0-1.1); MONO % 9 % (0-9); NEUT # 4.6 x10^3uL (1.8-7.7); NEUT % 70 % (31-73); PLATELET COUNT 254 x10^3/uL (140-400); RED BLOOD COUNT 4.79 x10^6/uL (4.30-5.70); RED CELL DISTRIBUTION WIDTH 18.2 % (11.5-14.5); WHITE BLOOD COUNT 6.6 x10^3/uL (4.0-11.0)
[2018-09-20 15:42] LABS: ALBUMIN 3.8 g/dL (3.4-5.0); CALCIUM 9.3 mg/dL (8.5-10.1); CREATININE 1.1 mg/dL (0.7-1.3); GFR 64.1; MAGNESIUM 2.3 mg/dL (1.8-2.4); POTASSIUM 4.2 mmol/L (3.5-5.1); TOTAL BILIRUBIN 0.3 mg/dL (0.2-1.0); TOTAL PROTEIN 7.8 g/dL (6.4-8.2)
[2018-09-20 16:09] LABS: BACTERIA,URINE 0 /HPF (0-FEW); BILIRUBIN,URINE NEG (NEG); CLARITY,URINE HAZY; COLOR,URINE YELLOW; GLUCOSE,URINE NEG (NEG); NITRITE,URINE NEG (NEG); SQUAMOUS EPITHELIAL CELL,UR FEW /LPF; UROBILINOGEN,URINE 0.2 mg/dL (0.2 mg/dL)
--- NOTE | 2018-09-20 17:20 | EKG ---
[address] [address] Test Date: 2018-09-20 Test Time: 15:06:27 Pat Name: TEA RAGLAND Department: Room: 107 A Gender: M Industrial Relations Officer: : 1935 Requested By: GAL LINK Order Number: [id number] Reading MD: Zachery Adrian Measurements Intervals [place] Rate: 79 P: -20 SC: 182 QRS: -22 QRSD: 90 T: 14 QT: 388 QTc: 446 Interpretive Statements SINUS BRADYCARDIA VENTRICULAR PREMATURE COMPLEX(ES) LEFTWARD AXIS PROLONGED SC INTERVAL CONSIDER LEFT VENTRICULAR HYPERTROPHY ABNORMAL ECG Electronically Signed On 09-27-2018 10:00:08 VENTILATED RIB FITTER by Zachery Adrian
[2018-09-20 17:38] VITALS: BP 116/75
[2018-09-20] MEDS ORDERED: DOXY100C2 PO (17:44)
[2018-09-20] MEDS ORDERED: CRESTOR5 MG PO (17:44)
[2018-09-20] MEDS ORDERED: ASPI-630 PO (17:44)
[2018-09-20] MEDS ORDERED: FAMO10TA69 PO (17:44)
[2018-09-20] MEDS ORDERED: NEBI10TA3 PO (17:44)
[2018-09-20] MEDS ORDERED: CIPR500T94 PO (17:44)
[2018-09-20] MEDS ORDERED: AMOX500T PO (17:44)
[2018-09-20] MEDS ORDERED: ENOXAPARIN 40 MG/0.4 ML SYRINGE. SQ SCH (18:00)
[2018-09-20] MEDS ORDERED: ACETAMINOPHEN 325 MG TABLET PO PRN (18:15)
[2018-09-20] MEDS: CARBIDOPA/LEVODOPA 25/100MG TABLET PO SCH (18:38)
[2018-09-20 19:30] VITALS: BP 127/78
[2018-09-20] MEDS: POLYVINYL ALCOHOL 1.4% OPHTH SOLUTION 15ML BOTTLE. OU SCH (20:00)
[2018-09-20] MEDS ORDERED: CARBIDOPA/LEVODOPA CR 25/100MG TABLET.SA PO SCH (21:00)
[2018-09-20] MEDS: DOCUSATE SODIUM 100 MG CAPSULE PO SCH (22:31)
[2018-09-20] MEDS: ASCORBIC ACID 500 MG TABLET PO SCH (22:31)
[2018-09-20 22:32] VITALS: BP 123/73
[2018-09-20] MEDS: METOPROLOL TART IMMED RELEASE 50 MG TABLET PO SCH (22:34)
[2018-09-20] MEDS: LACTOBACILLUS RHAMNOSUS GG 1 CAPSULE. PO SCH (22:36)
[2018-09-20] MEDS: CIPROFLOXACIN HCL 500 MG TABLET PO SCH (22:36)
[2018-09-20] MEDS: DOXYCYCLINE HYCLATE 100 MG TABLET PO SCH (22:36)
[2018-09-20] MEDS: AMOXICILLIN 250 MG CAPSULE PO SCH (22:36)
[2018-09-20] MEDS: FAMOTIDINE 20 MG TABLET PO SCH (22:36)
[2018-09-21 05:30] VITALS: BP 154/77
[2018-09-21 06:34] LABS: ALBUMIN 3.4 g/dL (3.4-5.0); ALBUMIN/GLOBULIN RATIO 0.9 (1.0-1.7); C REACTIVE PROTEIN 4.6 mg/L (0-3.3); CALCIUM 9.2 mg/dL (8.5-10.1); CREATININE 0.9 mg/dL (0.7-1.3); GFR 80.8; TOTAL BILIRUBIN 0.5 mg/dL (0.2-1.0); TOTAL PROTEIN 7.2 g/dL (6.4-8.2)
[2018-09-21] MEDS: CARBIDOPA/LEVODOPA 25/100MG TABLET PO SCH ×3 (06:43→14:29)
[2018-09-21] MEDS ORDERED: ASPIRIN 81 MG TAB.CHEW PO SCH (08:00)
[2018-09-21] MEDS: ASCORBIC ACID 500 MG TABLET PO SCH (08:49)
[2018-09-21] MEDS: AMOXICILLIN 250 MG CAPSULE PO SCH ×2 (08:49→14:29)
[2018-09-21] MEDS: DOCUSATE SODIUM 100 MG CAPSULE PO SCH (08:49)
[2018-09-21] MEDS: FAMOTIDINE 20 MG TABLET PO SCH (08:49)
[2018-09-21] MEDS: DOXYCYCLINE HYCLATE 100 MG TABLET PO SCH (08:49)
[2018-09-21] MEDS: METOPROLOL TART IMMED RELEASE 50 MG TABLET PO SCH (08:49)
[2018-09-21] MEDS: CIPROFLOXACIN HCL 500 MG TABLET PO SCH (08:49)
[2018-09-21] MEDS: LACTOBACILLUS RHAMNOSUS GG 1 CAPSULE. PO SCH (08:49)
[2018-09-21] MEDS: POLYVINYL ALCOHOL 1.4% OPHTH SOLUTION 15ML BOTTLE. OU SCH (08:50)
[2018-09-21] MEDS ORDERED: ATORVASTATIN CALCIUM 10 MG TABLET. PO SCH (09:00)
[2018-09-21] MEDS ORDERED: MULTIVITAMIN with MINERAL TABLET. PO SCH (09:00)
[2018-09-21 10:34] VITALS: BP 97/64
[2018-09-21 14:16] VITALS: BP_SYST 108; BP_SYST 98; BP_DIAS 57; BP_DIAS 69
--- NOTE | 2018-09-21 19:36 | HP ---
ADMIT DATE: 09/20/2018 HISTORY OF PRESENT ILLNESS: The patient is an 83-year-old male patient who was brought to the Emergency Room by emergency medical service personnel because of altered level of consciousness. The patient's reported he was fine when he took a nap at about 1 p.m. and woke up at around 1330, was confused and did not recognize his home and his , it was unlike his usual episodes of confusion during which he recognized his . The patient is alert and oriented on arrival to the Emergency Room around 1450 and denies any problems. The patient has been hospitalized here for a long time before for septic left hip joint after hip surgery and was treated for polymicrobial infection with IV antibiotic and was discharged home on ampicillin, ciprofloxacin on doxycycline. He was extensively investigated in the Emergency Room and his lab work showed a normal white cell count. His chemistry was essentially unremarkable and his urinalysis showed the urine was yellow, hazy with a pH of 6, specific gravity of 1.020. The urine was negative for protein, glucose, ketones, blood, nitrite and bilirubin. There was small amount of leukocyte esterase, 6-10 rbc's, 11-20 wbc's; however, there are no bacteria. The patient was admitted for observation and to do further investigation if deemed necessary, although by the time he arrived to the floor, he was definitely more awake, alert, was feeding himself and he recognized me and the rest of the nursing staff. PAST MEDICAL HISTORY: Significant for hypertension, hyperlipidemia, valvular heart disease, Parkinson's disease, dementia, benign prostatic hypertrophy, prostate cancer, urinary incontinence. He has also left hip fracture, status post left hip hemiarthroplasty and also had another fall, status post periprosthetic fracture, status post rewiring. 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 PAST SURGICAL HISTORY: Significant for hip hemiarthroplasty, status post rewiring, periorbital periprosthetic fracture revision due to infection. ALLERGIES: He has no known drug allergies. FAMILY HISTORY: Unremarkable. SOCIAL HISTORY: He is , lives with his . He does not smoke, drink alcohol or use any recreational drugs. REVIEW OF SYSTEMS: As per history of present illness. MEDICATIONS: He is currently on following medications: Amoxicillin 500 mg 3 times a day, ciprofloxacin 500 mg twice a day, doxycycline Hyclate 100 mg twice a day. He is on Crestor 2.5 mg daily, Bystolic 10 mg once a day, aspirin 81 mg once a day, acetaminophen 650 mg every 4 hours as needed, carbidopa/levodopa 25/100 mg 2 tablets 4 times a day. He is on Sinemet CR 25/100 mg tablet 1 at bedtime. He is on polyvinyl alcohol for Artificial Tears 1 drop twice a day, Colace 100 mg daily, famotidine 10 mg twice a day, lactobacillus rhamnosus 1 capsule twice a day, ascorbic acid 500 mg twice a day, cholecalciferol 50,000 units p.o. weekly, multivitamin 1 tablet once a day. PHYSICAL EXAMINATION: GENERAL: On arrival to the Emergency Room, he looked well and was clearly in no apparent distress. He is awake, alert, oriented. No pallor, jaundice, cyanosis, or thyromegaly. No jugular venous distension. No limb edema. VITAL SIGNS: His heart rate was 74, blood pressure was 145/92, temperature was 98.4, respiratory rate 18 and oxygen saturation was 94%. HEAD, EYES, EARS, NOSE AND THROAT: Showed normocephalic, atraumatic. NECK: Supple. HEART: Showed normal first and second heart sounds with no gallop, rub or murmur. CHEST: Clear to auscultation. No crepitation or rhonchi. ABDOMEN: Distended, soft, nontender. No guarding or rigidity. No organomegaly. All hernial orifices intact. Bowel sounds normal. NEUROLOGIC: He was definitely awake, alert, responding appropriately. He actually recognized the medical staff as well as the nursing staff. In fact when I saw him, he was sitting propped up, feeding himself, eating his dinner. All his cranial nerves are intact. He moves extremities without difficulty. LABORATORY DATA: His lab work on arrival to the Emergency Room showed his white cell count to be 6600, hemoglobin 13, hematocrit 39, MCV was 83 and platelet count of 254,000 with normal manual differential. His chemistry showed a serum sodium 138, potassium 4.2, chloride 100, bicarbonate 27, anion gap of 11, BUN 27, and creatinine was 1.1, estimated GFR was 64 mL per minute. His glucose was 95 and lactic acid is 1.3. Calcium was 9.3 and magnesium was 2.3. Total bilirubin, AST, ALT, alkaline phosphatase were normal. His CK was 57. Total protein was 7.8, albumin was 3.8. His prothrombin time was 10.5, INR 1.1, aPTT was 25. Urinalysis showed the urine was yellow, hazy with a pH of 6, specific gravity of 1.020. The urine was negative for protein, glucose, ketones, blood, nitrite and bilirubin. There was small amount of leukocyte esterase. There were 6-10 rbc's, 11-20 wbc's, there are no bacteria. ASSESSMENT AND PLAN: The patient was admitted, was continued all his medication. We did consult the physical and occupational therapy to evaluate the patient and continue the process of rehabilitation. I obviously will evaluate him on a daily basis. I did speak with Dr. Franklin about the finding in the urine. He was in agreement that there is no need to add another antibiotic. ANA FINNEGAN MD DR: HÉCTOR/nathaniel JOB#: [id number] / [id number]
--- NOTE | 2018-09-21 20:27 | DS ---
DATE OF DISCHARGE: 09/21/2018 HOSPITAL COURSE: The patient is sitting comfortably in his recliner, in no apparent distress. He is awake, alert. On questioning, denied any complaint. The nursing staff did not voice any concerns and that he has been stable, has no further episodes of confusion. He is working with physical therapy and managed to walk with a walker. PHYSICAL EXAMINATION walker: GENERAL: When I examined him this afternoon, he looked well and was clearly in no apparent respiratory distress, pale, but no jaundice, cyanosis or thyromegaly. No jugular venous distension. No limb edema. VITAL SIGNS: His heart rate was 67, blood pressure was 123/73, temperature was 98, respiratory rate was 16 and oxygen saturation was 93%. HEAD, EYES, EARS, NOSE AND THROAT: Showed normocephalic, atraumatic. NECK: Supple. HEART: Showed normal first and second heart sounds. No gallop, rub or murmur. CHEST: Clear to auscultation. No crepitation or rhonchi. ABDOMEN: Distended, soft, nontender. NEUROLOGIC: He was awake, alert. All his cranial nerves are intact. EXTREMITIES: He moves extremities without difficulty. LABORATORY DATA: His lab work this morning showed that his serum sodium was 139, potassium 5, chloride 103, bicarbonate 28, anion gap of 8, BUN 23, creatinine 0.9, estimated GFR was 81 mL per minute. His bicarbonate 28, anion gap of 8, BUN 23, creatinine 0.9, estimated GFR was 80 mL per minute. His glucose 87, calcium was 9.2. Total bilirubin, AST, alkaline phosphatase slightly elevated. ALT is normal. His C-reactive protein was only 4.6 mg/dL. Total protein 7.2, albumin 3.4. DISCHARGE MEDICATIONS: He was discharged home with home health to continue on all his medication including his acetaminophen 650 mg every 4 hours, amoxicillin 500 mg 3 times a day, ascorbic acid 500 mg twice a day, aspirin 81 mg once a day, carbidopa/levodopa 25/100 mg tablet 2 tablets 4 times a day, carbidopa/levodopa 1 tablet at bedtime, cholecalciferol for vitamin D3 50,000 units orally weekly, ciprofloxacin 500 mg twice a day, Colace 100 mg daily, doxycycline 100 mg twice a day, famotidine 10 mg twice a day, lactobacillus rhamnosus for Culturelle p.o. twice a day, multivitamin 1 tablet once a day, nebivolol for Bystolic 10 mg tablet once a day, polyvinyl alcohol for artificial tears 1 drop to both eyes twice a day, Crestor 2.5 mg at bedtime. FINAL DISCHARGE DIAGNOSES: 1. Altered mental status, resolved. 2. Parkinson's disease. 3. 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 Other medical problems include hypertension, hyperlipidemia. I did speak with Dr. Franklin about the finding and he showed the lab results to his who does not want adding another antibiotic. ANA FINNEGAN MD DR: HÉCTOR/nathaniel JOB#: [id number] / [id number]
[2018-09-27] MEDS ORDERED: CHOLECALCIFEROL (VITAMIN D3) 1,000 UNIT TABLET PO SCH (09:00)
== END 2018-09-21 17:15 | disposition home health service (06) | DRG 948 ==
LOC: ER 14:50 → 1 SOUTH 16:46 → ER 16:55
PROVIDERS: ADMIT Internal Medicine; ATTEND Internal Medicine
DX: R41.82 Altered mental status, unspecified (principal); M00.9 Pyogenic arthritis, unspecified; J98.11 Atelectasis; E78.5 Hyperlipidemia, unspecified; F03.90 Unspecified dementia, unspecified severity, without behavioral disturbance, psychotic disturbance, mood disturbance, and anxiety; G20 Parkinson's disease; I10 Essential (primary) hypertension; Z96.642 Presence of left artificial hip joint; N40.0 Benign prostatic hyperplasia without lower urinary tract symptoms; Z85.46 Personal history of malignant neoplasm of prostate; Z87.81 Personal history of (healed) traumatic fracture
CPT/HCPCS: 36415; 70450; 71045; 80053; 81001; 82550; 83605; 83735; 84484; 85025; 85610; 85651; 85730; 86140; 87040; 87086; 93005; J1650; 99285-25

== ENCOUNTER 2019-05-03 08:45 | Observation (INO) | payer MEDICARE, BC ==
[~2019-05-03] VITALS: Ht 182.9 cm; Wt 90.3 kg
[~2019-05-03 08:45] MED LIST changes: +AMOX500T PO; +CIPR500T94 PO; +CRESTOR5 MG PO; +DOXY100C2 PO; +FAMO10TA69 PO; +NEBI10TA3 PO; -SENN1TAB21 PO; +SENN1TAB62 PO
--- NOTE | 2019-05-03 09:05 | PHYS DOC ---
Past History Past Medical History: Cancer, Hypertension, Other Additional Past Medical Histor: Parkinson's disease Past Surgical History: Cancer Surgery, Hip Replacement, Other Smoking: Non-smoker Alcohol Use: None Drug Use: None Adult General Chief Complaint Chief Complaint: ALTERED MENTAL STATUS HPI HPI Patient is a 84-year-old male brought in by EMS due to confusion and weakness this morning. Per EMS patient was staring off to his left. He is normally able to dress himself with his history of Parkinson's. He was unable to do that this morning. Last time he was seen normal was 10:00 last night. History is limited from the patient.[] Review of Systems Review of Systems Constitutional: Denies fever or chills [] Eyes: Denies change in visual acuity, redness, or eye pain [] HENT: Denies nasal congestion or sore throat [] Respiratory: Denies cough or shortness of breath [] Cardiovascular: No chest pain or palpitations[] GI: Denies abdominal pain, nausea, vomiting, bloody stools or diarrhea [] : Denies dysuria or hematuria [] Musculoskeletal: Denies back pain or joint pain [] Integument: Denies rash or skin lesions [] Neurologic: Denies headache, focal weakness or sensory changes [] Endocrine: Denies polyuria or polydipsia [] All other systems were reviewed and found to be within normal limits, except as documented in this note. Allergies Allergies Allergies Coded Allergies Type Severity Reaction Last Updated Verified I S O L A T I O N *CONTACT* Allergy Unknown 06/27/18 Yes NKMA Allergy Unknown 06/27/18 Yes Physical Exam Physical Exam Constitutional: Well developed, well nourished, no acute distress, non-toxic appearance. [] HENT: Normocephalic, atraumatic, bilateral external ears normal, oropharynx moist, no oral exudates, nose normal. [] Eyes: Patient gazing to the right, will not look to his left, conjunctiva normal, no discharge. [] Neck: Normal range of motion, no tenderness, supple, no stridor. [] Cardiovascular:Heart rate regular rhythm, no murmur [] Lungs & Thorax: Bilateral breath sounds clear to auscultation [] Abdomen: Bowel sounds normal, soft, no tenderness, no masses, no pulsatile masses. [] Skin: Warm, dry, no erythema, no rash. [] Back: No tenderness, no CVA tenderness. [] Extremities: No tenderness, no cyanosis, no clubbing, ROM intact, no edema. [] Neurologic: Alert and oriented X 2, not looking to the left. Patient is able to move all 4 extremities and will follow commands. Verbalization is limited. He does have a resting tremor consistent with his Parkinson's, normal motor function, normal sensory function, no focal deficits noted. NIH SS = 9. 2 points for left-sided neglect and inattention, 1 point for LOC commands, 2 points for R leg weakness, 2 points each (4 total) for both arm d istal motor function[] Psychologic: Affect normal, judgement normal, mood normal. [] Current Patient Data Vital Signs Vital Signs Date Time Temp Pulse Resp B/P (MAP) Pulse Ox O2 Delivery O2 Flow Rate FiO2 05/03/19 08:52 97.2 76 16 92 Room Air Lab Results Laboratory Tests Test 05/03/19 08:49 Glucose (Fingerstick) 97 mg/dL (70-99) EKG EKG EKG shows a sinus rhythm with PVCs at 69 bpm, left axis deviation, a C4 137 ms, no ST elevations. When compared with EKG of 09/20/2018 no acute changes are present.[] Radiology/Procedures Radiology/Procedures PROCEDURE: CT HEAD WO CONTRAST EXAM: CT Head without IV contrast CLINICAL HISTORY: Altered mental status COMPARISON: None. TECHNIQUE: Routine CT of the head without contrast. Soft tissues and bone windows were reviewed. PQRS compliance statement - One or more of the following individualized dose reduction techniques were utilized for this study: 1. Automated exposure control 2. Adjustment of the mA and/or kV according to patient size 3. Use of iterative reconstruction technique FINDINGS: There is no evidence of hemorrhage, mass or extra-axial fluid collection. Subcortical, periventricular and deep white matter hypoattenuation may be seen with chronic small vessel disease. There is no mass effect or shift of the intracranial structures. There is mild prominence of the ventricles and sulci bilaterally consistent with mild generalized cerebral atrophy. The cerebellum and brainstem are unremarkable. The calvarium demonstrates no evidence of fracture or focal lesion. There is normal aeration of the visualized paranasal sinuses and mastoid air cells. The visualized portions of the orbits are normal. IMPRESSION: 1. No evidence for acute intracranial process. 2. White matter hypoattenuation may be seen with chronic small vessel disease. 3. Mild generalized cerebral atrophy. PROCEDURE: PORTABLE CHEST 1V Examination: PORTABLE CHEST 1V History: Altered mental status Comparison/Correlation: 09/20/2018 portable chest x-ray exam Findings: Upright portable frontal view chest was obtained. Heart size is normal. Pulmonary vasculature is slightly congested. No pneumothorax. No definite pleural effusion. Right basilar discoid atelectasis is present. No consolidation No acute bony process. Impression: Slight pulmonary vasculature congestion. PROCEDURE: CT ANGIOGRAPHY HEAD AND NECK EXAM: CT ANGIOGRAPHY HEAD AND NECK DATE: 05/03/2019 9:57 AM INDICATION: Altered mental status. Left neglect. Right lower extremity weakness TECHNIQUE: CTA angiogram of the head and neck was obtained after IV bolus administration of 75 cc of Omnipaque-350. Multiplanar reconstruction images to include MIP and 3-D reconstruction images are submitted. One or more of the following dose reduction techniques were utilized: Automated exposure control (AEC), Adjustment of mA and/or kV according to patient size, Use of iterative reconstruction technique such as ASiR, CT scan done according to ALARA and image gently/image wisely COMPARISON: CT head done earlier the same day. FINDINGS: CTA Head: The visualized distal internal carotid arteries, anterior and middle cerebral arteries are patent and normal caliber. The distal vertebral arteries, basilar artery, and posterior cerebral arteries are patent and normal caliber. No aneurysm or arteriovenous malformation is seen. Right carotid: The right common carotid artery is patent and normal caliber. Mild atherosclerosis of the carotid bifurcation. No stenosis of the right internal carotid artery per NASCET criteria. The right external carotid artery is patent. Left carotid: The left common carotid artery is patent and normal caliber. Mild atherosclerosis of the carotid bifurcation. No stenosis of the left internal carotid artery per NASCET criteria. The left external carotid artery is patent. Right vertebral: Mild atherosclerosis at the origin of the right vertebral artery, which is otherwise patent and normal caliber. Left vertebral: Mild atherosclerosis at the origin of the left vertebral artery, which is otherwise patent and normal caliber.. The visualized portions of the aortic arch are normal. The origins of the brachiocephalic and subclavian arteries are normal. No cervical lymphadenopathy. The thyroid gland is normal. The parotid and submandibular glands are normal. The visualized aerodigestive tract is unremarkable. The cervical spine is normal. The visualized portions of the lungs are clear. IMPRESSION: 1. No emergent large vessel occlusion. 2. Atherosclerosis of the cervical internal carotid arteries with no stenosis. [] Course & Med Decision Making Course & Med Decision Making Pertinent Labs and Imaging studies reviewed. (See chart for details) ED course: Patient arrived by EMS and was essentially normal at 852 for his ini tial assessment. When I evaluated the patient I found left-sided neglect and right-sided gaze. Patient was sent immediately for a head CT. IV access was established. Consultation was made with the stroke neurologist at , Dr. Rosario. Due to the bilateral upper extremity symptoms along with the patient's Parkinson's disease, CT angiogram of the head and neck was requested. Family al so requests that the patient be sent to because they have issues with the neurologist at [place]. After the return of the CT angiogram, the stroke neurologist was reengaged for possible transfer. Medical decision making: Patient with waxing and waning neurologic symptoms. No evidence of large vessel occlusion. Patient's symptoms did improve again after their initial deterioration when the emergency department. This may be a result of his Parkinson's disease. Given the nature of the symptomatology, it was elected to withhold thrombolytic therapy at this time. Patient is being transferred for higher level of neurologic care. Dr. Watts accepted the patient for transfer. Family unwilling for patient to go to due to distance and concerned that he would just lay in bed getting worse. Consultation was made with the hospitalist here at [facility] who graciously accepted the patient. Family is aware of the limited services to include no MRI capability and questionable availability for an EEG. All questions were answered. He was admitted in improved condition at Medical decision making: Concerned initially about possibility of a stroke however with the symptoms waxing and waning, this may be related to his Parkinson's. He is not a thrombolytic candidate due to this cycling of the symptomatology. No evidence of large vessel occlusion. No evidence of an acute infection. No significant electrolyte abnormality.[] Dragon Disclaimer Dragon Disclaimer This electronic medical record was generated, in whole or in part, using a voice recognition dictation system. Departure Departure: Impression: Primary Impression: Parkinson disease Additional Impression: Altered mental status Disposition: ADMITTED INPATIENT Admitting Physician: Coty Camara Condition: IMPROVED Referrals: NAZIA AYALA MD (PCP) Problem Qualifiers Additional Impression: Altered mental status Altered mental status type: unspecified Qualified Codes: R41.82 - Altered mental status, unspecified PRICE MCDOWELL DO May 03, 2019 09:05
--- NOTE | 2019-05-03 09:17 | RAD ---
EXAM: CT Head without IV contrast CLINICAL HISTORY: Altered mental status COMPARISON: None. TECHNIQUE: Routine CT of the head without contrast. Soft tissues and bone windows were reviewed. PQRS compliance statement - One or more of the following individualized dose reduction techniques were utilized for this study: 1. Automated exposure control 2. Adjustment of the mA and/or kV according to patient size 3. Use of iterative reconstruction technique FINDINGS: There is no evidence of hemorrhage, mass or extra-axial fluid collection. Subcortical, periventricular and deep white matter hypoattenuation may be seen with chronic small vessel disease. There is no mass effect or shift of the intracranial structures. There is mild prominence of the ventricles and sulci bilaterally consistent with mild generalized cerebral atrophy. The cerebellum and brainstem are unremarkable. The calvarium demonstrates no evidence of fracture or focal lesion. There is normal aeration of the visualized paranasal sinuses and mastoid air cells. The visualized portions of the orbits are normal. IMPRESSION: 1. No evidence for acute intracranial process. 2. White matter hypoattenuation may be seen with chronic small vessel disease. 3. Mild generalized cerebral atrophy. Electronically signed by: Ponce Phillip MD (05/03/2019 9:15 AM) [facility]
--- NOTE | 2019-05-03 09:28 | RAD ---
Examination: PORTABLE CHEST 1V History: Altered mental status Comparison/Correlation: 09/20/2018 portable chest x-ray exam Findings: Upright portable frontal view chest was obtained. Heart size is normal. Pulmonary vasculature is slightly congested. No pneumothorax. No definite pleural effusion. Right basilar discoid atelectasis is present. No consolidation No acute bony process. Impression: Slight pulmonary vasculature congestion. Electronically signed by: Adalberto Hathaway MD (05/03/2019 9:25 AM) [id number]
[2019-05-03 09:39] LABS: BASO % 1 % (0-3); EOS # 0.1 x10^3/uL (0.0-0.7); EOS % 2 % (0-3); HEMATOCRIT 35.9 % (39.0-53.0); HEMOGLOBIN 11.5 g/dL (13.0-17.5); LYMPH # 0.7 x10^3/uL (1.0-4.8); LYMPH % 10 % (24-48); MEAN CORPUSCULAR HEMOGLOBIN 27 pg (25-35); MEAN CORPUSCULAR HGB CONC 32 g/dL (31-37); MEAN CORPUSCULAR VOLUME 86 fL (79-100); MONO # 0.6 x10^3/uL (0.0-1.1); MONO % 9 % (0-9); NEUT # 5.4 x10^3uL (1.8-7.7); NEUT % 79 % (31-73); PLATELET COUNT 262 x10^3/uL (140-400); RED BLOOD COUNT 4.19 x10^6/uL (4.30-5.70); RED CELL DISTRIBUTION WIDTH 15.7 % (11.5-14.5); WHITE BLOOD COUNT 6.9 x10^3/uL (4.0-11.0)
[2019-05-03 10:07] LABS: ALBUMIN 3.7 g/dL (3.4-5.0); CALCIUM 9.3 mg/dL (8.5-10.1); CREATININE 0.9 mg/dL (0.7-1.3); GFR 80.6; MAGNESIUM 2.2 mg/dL (1.8-2.4); POTASSIUM 4.2 mmol/L (3.5-5.1); TOTAL BILIRUBIN 0.3 mg/dL (0.2-1.0); TOTAL PROTEIN 7.3 g/dL (6.4-8.2)
[2019-05-03] MEDS ORDERED: IOHEXOL 350 MG/ML 100 ML VIAL. IV ONE (10:30)
[2019-05-03 10:37] LABS: BACTERIA,URINE 0 /HPF (0-FEW); BILIRUBIN,URINE NEG (NEG); CLARITY,URINE CLEAR; COLOR,URINE YELLOW; GLUCOSE,URINE NEG (NEG); NITRITE,URINE NEG (NEG); SQUAMOUS EPITHELIAL CELL,UR OCC /LPF; UROBILINOGEN,URINE 0.2 mg/dL (0.2 mg/dL)
--- NOTE | 2019-05-03 11:07 | RAD ---
EXAM: CT ANGIOGRAPHY HEAD AND NECK DATE: 05/03/2019 9:57 AM INDICATION: Altered mental status. Left neglect. Right lower extremity weakness TECHNIQUE: CTA angiogram of the head and neck was obtained after IV bolus administration of 75 cc of Omnipaque-350. Multiplanar reconstruction images to include MIP and 3-D reconstruction images are submitted. One or more of the following dose reduction techniques were utilized: Automated exposure control (AEC), Adjustment of mA and/or kV according to patient size, Use of iterative reconstruction technique such as ASiR, CT scan done according to ALARA and image gently/image wisely COMPARISON: CT head done earlier the same day. FINDINGS: CTA Head: The visualized distal internal carotid arteries, anterior and middle cerebral arteries are patent and normal caliber. The distal vertebral arteries, basilar artery, and posterior cerebral arteries are patent and normal caliber. No aneurysm or arteriovenous malformation is seen. Right carotid: The right common carotid artery is patent and normal caliber. Mild atherosclerosis of the carotid bifurcation. No stenosis of the right internal carotid artery per NASCET criteria. The right external carotid artery is patent. Left carotid: The left common carotid artery is patent and normal caliber. Mild atherosclerosis of the carotid bifurcation. No stenosis of the left internal carotid artery per NASCET criteria. The left external carotid artery is patent. Right vertebral: Mild atherosclerosis at the origin of the right vertebral artery, which is otherwise patent and normal caliber. Left vertebral: Mild atherosclerosis at the origin of the left vertebral artery, which is otherwise patent and normal caliber.. The visualized portions of the aortic arch are normal. The origins of the brachiocephalic and subclavian arteries are normal. No cervical lymphadenopathy. The thyroid gland is normal. The parotid and submandibular glands are normal. The visualized aerodigestive tract is unremarkable. The cervical spine is normal. The visualized portions of the lungs are clear. IMPRESSION: 1. No emergent large vessel occlusion. 2. Atherosclerosis of the cervical internal carotid arteries with no stenosis. Electronically signed by: Jose Guadalupe Mcmahon MD (05/03/2019 11:05 AM) [id number]
[2019-05-03] MEDS ORDERED: ONDANSETRON PF 4 MG/2 ML VIAL. IV PRN (12:00)
[2019-05-03] MEDS ORDERED: ACETAMINOPHEN 325 MG TABLET PO PRN (12:00)
--- NOTE | 2019-05-03 12:55 | EKG ---
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
[2019-05-03] MEDS ORDERED: NON FORMULARY ITEM (Acetaminophen 650 MG) PO PRN (13:45)
[2019-05-03 13:52] VITALS: BP 136/72
[2019-05-03] MEDS ORDERED: CARBIDOPA/LEVODOPA 25/100MG TABLET PO SCH (14:30)
[2019-05-03 14:40] VITALS: BP 138/69
--- NOTE | 2019-05-03 19:19 | SSS ---
ADMIT DATE: 05/03/2019 HISTORY OF PRESENT ILLNESS: The patient is an 84-year-old male patient who was brought to the Emergency Room this morning by the emergency medical service personnel due to confusion and weakness this morning. According to his , he woke up to go to the bathroom around 5:30 and 6:30. She wakes him up to give him his first dose of his anti-parkinsonian medication. The home health aide came and managed to get him out of the bed and change the clothes and took him to the kitchen, but he continued to be mostly unresponsive and therefore, the patient was brought to the Emergency Room for further evaluation and treatment. He was extensively investigated in the Emergency Room and has had his lab work, which were all within acceptable range. He has had a CT scan of the head, which was unremarkable and showed no evidence of acute intracranial process. He has white matter hypoattenuation seen in small vessel disease. His CT angio of the head and neck showed that his right and left carotid and right and left vertebral arteries are all patent and the visualized portions of the aortic arch are normal. The origins of the brachiocephalic and subclavian arteries are normal. The patient and family were given option as the ER physician contacted the Neurology team at [facility] and the patient was accepted there, but the family refused said to take him there citing their distance. They were offered to admit him to [facility], but they refused admission to [place] citing their problem with the one of the neurologists there and eventually was admitted to [facility] after explaining our short coming in the fact that we do not have an MRI or an EEG. In any case, by the time I saw him in the afternoon, the patient was more responsive, responding appropriately, more alert, oriented to time and place. 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 She has also occasional atrial ectopic beat and ventricular ectopic beat, has runs of atrial tachycardia with the longest was about 10 beats. She stated that they recommended to continue with his beta blockers and has an echocardiogram, which showed that he has normal ejection fraction of 55-60%. He has trace mitral and tricuspid regurgitation, although this is verbal report and might not have been completely accurate with the numbers. The family basically opted to take him home lining up more assistance for his to help him at home. PAST MEDICAL HISTORY: Significant for hypertension, hyperlipidemia, valvular heart disease, Parkinson's disease, dementia, benign prostatic hypertrophy, prostate cancer, urinary incontinence. He also has left hip fracture, status post left hip hemiarthroplasty and apparently had another fall, status post periprosthetic fracture, status post rewiring. 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 PAST SURGICAL HISTORY: Significant for hip pain hemiarthroplasty, status post rewiring, periprosthetic fracture revision due to infection. ALLERGIES: He has no known drug allergies. FAMILY HISTORY: Unremarkable. SOCIAL HISTORY: He is and lives with his . He does not smoke, drink alcohol or use any recreational drugs. REVIEW OF SYSTEMS: As per history of present illness. MEDICATIONS: He is currently on following medications: He is on amoxicillin 500 mg 3 times a day, ciprofloxacin 500 mg twice a day, doxycycline 100 mg twice a day. He is on Crestor 5 mg, he takes 2.5 mg daily. Bystolic 10 mg daily. Aspirin 81 mg once a day. Acetaminophen 650 mg every 4 hours. Carbidopa/levodopa 20/100 mg tablet to take 2 tablets at 6:30, 10:30, 2:30 and 6:30 in the evening. He is on carbidopa/levodopa extended release to 50/100 one tablet at bedtime. He is on Colace 100 mg daily, famotidine 10 mg twice a day, lactobacillus rhamnosus 1 capsule twice a day, vitamin C 500 mg twice a day, cholecalciferol 50,000 units weekly, multivitamin 1 tablet once a day. PHYSICAL EXAMINATION: GENERAL: On arrival to the Emergency Room, he looked well and was clearly in no apparent respiratory distress. No pallor, jaundice, cyanosis, or thyromegaly. No jugular venous distension. No lower limb edema. VITAL SIGNS: His heart rate was 75, blood pressure 142/53, temperature was 98.3, respiratory rate was 14 and oxygen saturation was 98% on room air. HEAD, EYES, EARS, NOSE AND THROAT: Showed normocephalic, atraumatic. NECK: Supple. HEART: Showed normal first and second heart sounds with no gallop, rub or murmur. CHEST: Clear to auscultation. No crepitation or rhonchi. ABDOMEN: Distended, soft, nontender. No guarding or rigidity. No organomegaly. All hernial orifice intact. Bowel sounds normal. NEUROLOGIC: He was apparently somewhat lethargic; however, he was alert and oriented x 2, not looking to the left. The patient is able to move all his 4 extremities and follow commands. Verbalization is limited, however, on further talking to him, he remembered that he was supposed to see a boiler/chiller technician and remembered that he has leaking valves in his heart. He does have resting tremor consistent with Parkinson's disease. LABORATORY DATA: While in the Emergency Room, his [facility] score was 9.2 and therefore the patient has had a CT scan of the head without contrast, which basically showed that the patient has no evidence of hemorrhage, mass, or extraaxial fluid collection and subcortical periventricular and deep white matter hypoattenuation may be seen with chronic small vessel disease. There is no mass effect or shift of the intracranial structures. There is mild prominence of the ventricles and sulci bilaterally consistent with mild generalized cerebral atrophy. The cerebellum and brainstem are unremarkable. The calvarium demonstrates no evidence of fracture or focal lesion. There is normal aeration of the visualized paranasal sinuses and mastoid air cells and visualized portion of the orbits are normal. He has had CT angio of the head and neck, which showed the visualized distal internal carotid arteries, anterior and posterior middle cerebral arteries are patent with normal in caliber. The distal vertebral arteries, basilar artery and posterior cerebral arteries are patent and normal in caliber. No aneurysm or arteriovenous malformation is seen. The right common carotid artery is patent and normal in caliber. Mild atherosclerosis of the carotid bifurcation, no stenosis of the right internal carotid artery. The right external carotid artery is patent. The left common carotid artery is patent and normal caliber. There is mild atherosclerosis of the carotid bifurcation, no stenosis. The left internal carotid artery, left external carotid artery is patent. Right vertebral artery showed mild atherosclerosis at the origin of the right vertebral artery. There is no otherwise patent and normal caliber. Left vertebral artery showed mild atherosclerosis at the origin of the right vertebral artery, which is otherwise patent and normal in caliber. His left vertebral artery showed mild atherosclerosis at the origin of the left vertebral artery, which is otherwise patent and normal in caliber. His lab work showed a white cell count of 6900, hemoglobin 11.5, hematocrit 35.9, MCV 86 and platelet count of 262,000. His prothrombin time was 10.6, INR of 1, aPTT was 27. Serum sodium was 138, potassium 4.2, chloride 102, bicarbonate 29, anion gap of 7, BUN 20, creatinine 0.9, estimated GFR was 80 mL per minute. His glucose was 97. His calcium was 9.3, magnesium 2.2. Total bilirubin, AST, ALT were normal. Alkaline phosphatase slightly elevated. Beta-natriuretic peptide was 692. Total protein was 7.3, albumin was 3.7. ASSESSMENT AND PLAN: He will be discharged to home with home health to continue on vitamin D 50,000 units once a week, multivitamin with calcium 1 tablet once a day, docusate sodium 100 mg daily. He will be discharged also on aspirin 81 mg once a day; atorvastatin 10 mg at bedtime; Bystolic 10 mg once a day; lactobacillus 1 capsule twice a day; famotidine 10 mg twice a day; doxycycline 100 mg twice a day; ciprofloxacin 500 mg twice a day; carbidopa/levodopa 1 tablet at bedtime; ascorbic acid 500 mg twice a day; amoxicillin 500 mg 3 times a day; carbidopa/levodopa 2 tablets at 6:30, 10:30, 1430 hours, and 1830 hours; acetaminophen 650 mg every 4 hours; ondansetron 4 mg p.o. every 4 hours as needed. ANA FINNEGAN MD DR: HÉCTOR/nathaniel JOB#: [id number] / [id number]
[2019-05-03] MEDS ORDERED: CARBIDOPA/LEVODOPA CR 25/100MG TABLET.SA PO SCH (21:00)
[2019-05-03] MEDS ORDERED: ATORVASTATIN CALCIUM 10 MG TABLET. PO SCH (21:00)
[2019-05-03] MEDS ORDERED: METOPROLOL TART IMMED RELEASE 50 MG TABLET PO SCH (21:00)
[2019-05-03] MEDS ORDERED: AMOXICILLIN 250 MG CAPSULE PO SCH (21:00)
[2019-05-03] MEDS ORDERED: CIPROFLOXACIN HCL 500 MG TABLET PO SCH (21:00)
[2019-05-03] MEDS ORDERED: LACTOBACILLUS RHAMNOSUS GG 1 CAPSULE. PO SCH (21:00)
[2019-05-03] MEDS ORDERED: DOXYCYCLINE HYCLATE 100 MG TABLET PO SCH (21:00)
[2019-05-03] MEDS ORDERED: ASCORBIC ACID 500 MG TABLET PO SCH (21:00)
[2019-05-03] MEDS ORDERED: FAMOTIDINE 20 MG TABLET PO SCH (21:00)
[2019-05-04] MEDS ORDERED: ASPIRIN 81 MG TAB.CHEW PO SCH (08:00)
[2019-05-04] MEDS ORDERED: MULTIVITAMIN with MINERAL TABLET. PO SCH (09:00)
[2019-05-04] MEDS ORDERED: DOCUSATE SODIUM 100 MG CAPSULE PO SCH (09:00)
[2019-05-10] MEDS ORDERED: CHOLECALCIFEROL (VITAMIN D3) 50,000 UNIT CAPSULE PO SCH (09:00)
== END 2019-05-03 17:00 | disposition home health service (06) ==
LOC: ER 08:45 → 1 SOUTH 12:00 → INTOOBSV 12:00 → ER 12:22
PROVIDERS: ADMIT Internal Medicine; ATTEND Internal Medicine
DX: R41.82 Altered mental status, unspecified (principal); I10 Essential (primary) hypertension; G20 Parkinson's disease; R53.1 Weakness; E78.5 Hyperlipidemia, unspecified; F02.80 Dementia in other diseases classified elsewhere, unspecified severity, without behavioral disturbance, psychotic disturbance, mood disturbance, and anxiety; N40.0 Benign prostatic hyperplasia without lower urinary tract symptoms; R41.4 Neurologic neglect syndrome; I73.9 Peripheral vascular disease, unspecified; I47.1 Supraventricular tachycardia; Z79.82 Long term (current) use of aspirin; Z79.899 Other long term (current) drug therapy; Z96.642 Presence of left artificial hip joint; Z85.46 Personal history of malignant neoplasm of prostate
CPT/HCPCS: 36415; 70450; 70496; 70498; 71045; 80053; 81001; 82947; 83735; 83880; 84484; 85025; 85610; 85730; 87040; 93005; 99284; G0378; Q9967; G0379

== ENCOUNTER 2019-07-05 20:00 | Emergency (ER) | payer MEDICARE, BC ==
[~2019-07-05] VITALS: Ht 182.9 cm; Wt 92.5 kg
[~2019-07-05 20:00] MED LIST changes: +POLY15DR16 OP; -POLY15DR27 OP
--- NOTE | 2019-07-05 21:56 | PHYS DOC ---
Past History Past Medical History: Cancer, Hypertension, Other Additional Past Medical Histor: Parkinson's disease Past Surgical History: Cancer Surgery, Hip Replacement Smoking: Non-smoker Alcohol Use: None Drug Use: None Adult General Chief Complaint Chief Complaint: MECHANICAL FALL HPI HPI Patient is a 84 year old male who presents with his family to the emergency department for evaluation after suffering a fall at home. The fall took place shortly prior to arrival. The patient was using the restroom. Fall was witnessed by [employer] department operator. She states that the patient hit his head against the wall as well as his left shoulder. Patient did not lose consciousness. States that he has mild soreness to his left shoulder and notes skin tears to the left forearm and hand. Denies any pain in the left hip. Has recently had a total hip replacement. Family wanted this to be evaluated to ensure that there were no problems. Patient currently denies pain in the left hip. Takes a baby aspirin but no other blood thinners. History of Parkinson's disease. Review of Systems Review of Systems Constitutional: Denies fever or chills [] Eyes: Denies change in visual acuity, redness, or eye pain [] HENT: Denies nasal congestion or sore throat [] Respiratory: Denies cough or shortness of breath [] Cardiovascular: Denies chest pain or edema[] GI: Denies abdominal pain, nausea, vomiting, bloody stools or diarrhea [] : Denies dysuria or hematuria [] Musculoskeletal: Left shoulder pain[] Integument: Skin tears to left forearm and left hand[] Neurologic: Denies headache, focal weakness or sensory changes [] All other systems were reviewed and found to be within normal limits, except as documented in this note. Allergies Allergies Allergies Coded Allergies Type Severity Reaction Last Updated Verified I S O L A T I O N *CONTACT* Allergy Unknown 06/27/18 Yes NKMA Allergy Unknown 06/27/18 Yes Physical Exam Physical Exam Constitutional: Alert, afebrile, no acute distress. [] HENT: Normocephalic, atraumatic, bilateral external ears normal, oropharynx moist, no oral exudates, nose normal. [] Eyes: PERRLA, EOMI, conjunctiva normal, no discharge. [] Neck: Normal range of motion, no tenderness, supple, no stridor. [] Cardiovascular:Heart rate regular rhythm, no murmur [] Lungs & Thorax: Bilateral breath sounds clear to auscultation [] Abdomen: Bowel sounds normal, soft, no tenderness, no masses, no pulsatile masses. [] Skin: Warm, dry, no erythema, superficial skin tears along the mid to distal portion of the medial left forearm and dorsum of left hand. [] Back: No tenderness, no CVA tenderness. [] Extremities: No obvious deformity to left shoulder, minimal soft tissue tenderness to palpation, normal range of motion and left shoulder, normal range of motion present in the left hip, no shortening or malrotation and left lower extremity, no cyanosis, no clubbing, no edema. [] Neurologic: Alert and oriented X 3, pill-rolling tremors bilaterally, cogwheel rigidity bilaterally in the upper and lower extremities, no focal deficits noted. [] Current Patient Data Vital Signs Vital Signs Date Time Temp Pulse Resp B/P (MAP) Pulse Ox O2 Delivery O2 Flow Rate FiO2 07/05/19 20:05 97.8 85 16 95 Room Air Lab Results Not performed EKG EKG Not performed[] Radiology/Procedures Radiology/[place] [address] IMAGING REPORT Signed PATIENT: TEA RAGLAND ACCOUNT: [id number] : 1935 LOCATION: ER AGE: 84 SEX: M EXAM STATUS: REG ER ORD. PHYSICIAN: IAIN ALCARAZ MD REASON: Fall, reportedly hit head on wall, no LOC PROCEDURE: CT HEAD WO CONTRAST PQRS Compliance statement: One or more of the following individualized dose reduction techniques were utilized for this examination: 1. Automated exposure control. 2. Adjustment of the mA and/or kV according to patient size. 3. Use of iterative reconstruction technique. Indication:Fall. TECHNIQUE: CT head without IV contrast COMPARISON:05/03/2019 FINDINGS: No pathologic extra-axial or intra-axial fluid collection. Small wedge-shaped area of low-attenuation is seen in the right anterior lobe and in the right temporal parietal lobe extending to the cortex. No acute intracranial bleed. Orbits are within normal limits. No acute calvarial fractures. Visualized paranasal sinuses and mastoid air cells are clear. The ventricles and basal cisterns are within normal limits. IMPRESSION: 1. 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 These are new from previous exam from 05/03/2019. Further elevation with MRI is recommended. 2. No acute intracranial bleed. Critical findings were identified on 07/05/2019 10:12 PM, read back and verified with Dr. Alcaraz on 07/05/2019 10:[address] Gordo Trujillo DO. Electronically signed by: Gordo Trujillo DO (07/05/2019 10:19 PM) [facility] DICTATED AND SIGNED BY: GORDO TRUJILLO DO DATE: 07/05/192218 CC: NAZIA AAYLA MD; IAIN ALCARAZ MD ~ [] Course & Med Decision Making Course & Med Decision Making Pertinent Labs and Imaging studies reviewed. (See chart for details) CT imaging did not show any sign of acute hemorrhage, however it was noted the patient had findings of subacute infarct in the temporal parietal as well as frontal lobes. Spoke with the patient and patient's regarding these findings. They have not noted any recent change in weakness over the last few days, however does note last month that the patient does seem to have been having weakness that started at that time that has persisted. Based off of what is being described by family, the patient's stroke could've taken place within the last 2-3 weeks. The patient at this time is stable and after discussion with family, they do not wish to pursue inpatient treatment at this time though this was offered as patient appears to be otherwise doing well at home. They believe that the fall but took place in the bathroom was a mechanical fall and that the patient did not pass out or lose consciousness. After discussion, we have agreed that patient is to follow-up tomorrow with primary doctor as well as contact the patient's neurologist as I do believe patient will need additional neuroimaging including brain MRI to further evaluate his recent CVA. I explained the patient could be at increased risk of developing another stroke given the evidence of recent stroke on CT. They have voiced understanding of this and state that they feel comfortable pursuing outpatient therapy at this time. Advised return to emergency department for any worsening symptoms. Patient and voice understanding and in agreement with treatment plan.[] Dragon Disclaimer Dragon Disclaimer This electronic medical record was generated, in whole or in part, using a voice recognition dictation system. Departure Departure: Impression: Primary Impression: Skin tear of left upper extremity Additional Impressions: CVA (cerebral vascular accident) Parkinson disease Shoulder contusion Disposition: 01 HOME, SELF-CARE Condition: STABLE Referrals: NAZIA AYALA MD (PCP) Patient Instructions: Contusion, Ischemic Stroke, Skin Tear Care Additional Instructions: CT imaging today did not show any acute bleeding related to your fall, however incidentally it was found that you have recently had a stroke. This likely occurred within the last 3-4 weeks. While there is no immediate treatment needed at this time, he will need to follow-up with both your primary doctor and/or neurologist within the next few days for reevaluation and possible need for outpatient testing. Return to the emergency department for any worsening symptoms. Problem Qualifiers Additional Impressions: CVA (cerebral vascular accident) CVA mechanism: unspecified Qualified Codes: I63.9 - Cerebral infarction, unspecified Shoulder contusion Encounter type: initial encounter Laterality: left Qualified Codes: S40.012A - Contusion of left shoulder, initial encounter IAIN ALCARAZ MD Jul 05, 2019 21:56
--- NOTE | 2019-07-05 22:21 | RAD ---
PQRS Compliance statement: One or more of the following individualized dose reduction techniques were utilized for this examination: 1. Automated exposure control. 2. Adjustment of the mA and/or kV according to patient size. 3. Use of iterative reconstruction technique. Indication:Fall. TECHNIQUE: CT head without IV contrast COMPARISON:05/03/2019 FINDINGS: No pathologic extra-axial or intra-axial fluid collection. Small wedge-shaped area of low-attenuation is seen in the right anterior lobe and in the right temporal parietal lobe extending to the cortex. No acute intracranial bleed. Orbits are within normal limits. No acute calvarial fractures. Visualized paranasal sinuses and mastoid air cells are clear. The ventricles and basal cisterns are within normal limits. IMPRESSION: 1. 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 These are new from previous exam from 05/03/2019. Further elevation with MRI is recommended. 2. No acute intracranial bleed. Critical findings were identified on 07/05/2019 10:12 PM, read back and verified with Dr. Lira on 07/05/2019 10:[address] Gordo Trujillo DO. Electronically signed by: Gordo Trujillo DO (07/05/2019 10:19 PM) [facility]
[2019-07-05 23:15] VITALS: BP 111/70
== END 2019-07-05 23:15 | disposition home or self-care (01) ==
LOC: ER 20:00
DX: S51.812A Laceration without foreign body of left forearm, initial encounter (principal); S40.012A Contusion of left shoulder, initial encounter; G20 Parkinson's disease; I63.9 Cerebral infarction, unspecified; I10 Essential (primary) hypertension; R51 Headache; Z91.041 Radiographic dye allergy status; W18.39XA Other fall on same level, initial encounter; Y93.89 Activity, other specified; Y92.098 Other place in other non-institutional residence as the place of occurrence of the external cause; Y99.8 Other external cause status
CPT/HCPCS: 70450; 99284-25

== ENCOUNTER 2019-10-13 08:43 | Emergency (ER) | payer MEDICARE, BC ==
[~2019-10-13] VITALS: Ht 182.9 cm; Wt 91.1 kg
[~2019-10-13 08:43] MED LIST changes: -POLY15DR16 OP; +POLY15DR27 OP; +SIMV10TA15 PO; -SIMV10TA3 PO
[2019-10-13] MEDS ORDERED: PANTOPRAZOLE IV 40 MG VIAL. IVP ONE (09:00)
[2019-10-13] MEDS ORDERED: ONDANSETRON PF 4 MG/2 ML VIAL. IVP ONE (09:00)
[2019-10-13] MEDS ORDERED: IV NORMAL SALINE 1,000ML 1,000 ML IV SCH (09:00)
[2019-10-13 09:21] LABS: BASO % 0 % (0-3); EOS % 0 % (0-3); HEMOGLOBIN 11.9 g/dL (13.0-17.5); LYMPH # 0.5 x10^3/uL (1.0-4.8); LYMPH % 5 % (24-48); MEAN CORPUSCULAR HEMOGLOBIN 27 pg (25-35); MEAN CORPUSCULAR HGB CONC 32 g/dL (31-37); MEAN CORPUSCULAR VOLUME 85 fL (79-100); MONO # 0.4 x10^3/uL (0.0-1.1); MONO % 3 % (0-9); NEUT # 9.7 x10^3uL (1.8-7.7); NEUT % 92 % (31-73); PLATELET COUNT 338 x10^3/uL (140-400); RED BLOOD COUNT 4.36 x10^6/uL (4.30-5.70); RED CELL DISTRIBUTION WIDTH 15.7 % (11.5-14.5); WHITE BLOOD COUNT 10.6 x10^3/uL (4.0-11.0)
--- NOTE | 2019-10-13 09:22 | RAD ---
Examination: PORTABLE CHEST 1V History: Vomiting Comparison/Correlation: 05/03/2019 Portable Chest X-ray Exam Findings: Upright portable frontal view chest was obtained. Right basilar discoid atelectasis is present. No pneumothorax. Limited pulmonary infiltration noted. Heart size normal. Pulmonary vasculature is normal. No suspicious consolidation. Small hiatal hernia noted. Gaseous distention of left upper quadrant small bowel is suspected. Impression: Mild right basilar discoid atelectasis. Hiatal hernia. Gaseous distention of bowel is suspected of indeterminate significance. Electronically signed by: Adalberto Hathaway MD (10/13/2019 9:19 AM) [facility]
[2019-10-13 09:26] LABS: CALCIUM 9.9 mg/dL (8.5-10.1); CREATININE 1.3 mg/dL (0.7-1.3); GFR 52.7; POTASSIUM 3.8 mmol/L (3.5-5.1)
--- NOTE | 2019-10-13 10:06 | PHYS DOC ---
Past History Past Medical History: Other Additional Past Medical Histor: Parkinsons disease, depression, hypertension Past Surgical History: Hip Replacement Smoking: Non-smoker Alcohol Use: None Drug Use: None Adult General Chief Complaint Chief Complaint: NAUSEA/VOMITING/[facility] HPI Patient is an 84-year-old male who presents with complaint of nausea with vomiting that started on Wednesday. Patient had last eaten a meal on Wednesday and shortly after eating, he had vomited it right back up. Patient hasn't been feeling well since that time and earlier today patient had additional vomiting and caregiver had indicated that it looked like coffee ground emesis. Patient denies any abdominal pain at this time but family does indicate that patient was having some abdominal discomfort for him. Patient reportedly has had no fever. He does complain of feeling generalized weakness. He denies any chest pain or shortness of breath.[] Review of Systems Review of Systems Constitutional: Denies fever or chills [] Respiratory: Denies cough or shortness of breath [] Cardiovascular: No additional information not addressed in HPI [] GI: Denies abdominal pain. Complains of nausea and vomiting. [] Integument: Denies rash or skin lesions [] Neurologic: Denies headache, focal weakness or sensory changes [] All other systems were reviewed and found to be within normal limits, except as documented in this note. Current Medications Current Medications Current Medications Medications (Trade) Dose Ordered Sig/Neena Start Time Stop Time Status Last Admin Dose Admin Ondansetron HCl (Zofran) 4 mg 1X ONCE 10/13/19 09:00 10/13/19 09:01 DC 10/13/19 09:23 4 MG Pantoprazole Sodium (Protonix Vial) 40 mg 1X ONCE 10/13/19 09:00 10/13/19 09:01 DC 10/13/19 09:23 40 MG Sodium Chloride 1,000 ml @ 1,000 mls/hr Q1H 10/13/19 09:00 10/13/19 09:59 DC 10/13/19 09:00 1,000 MLS/HR Allergies Allergies Allergies Coded Allergies Type Severity Reaction Last Updated Verified I S O L A T I O N *CONTACT* Allergy Unknown 06/27/18 Yes NKMA Allergy Unknown 06/27/18 Yes Physical Exam Physical Exam Constitutional: Well developed, well nourished, no acute distress, non-toxic appearance. [] HENT: Normocephalic, atraumatic, bilateral external ears normal, oropharynx moist, no oral exudates, nose normal. [] Eyes: PERRLA, EOMI, conjunctiva normal, no discharge. [] Neck: Normal range of motion, no tenderness, supple, no stridor. [] Cardiovascular: Regular rate and rhythm[] Lungs & Thorax: Bilateral breath sounds clear to auscultation [] Abdomen: Bowel sounds diminished, soft, no tenderness. [] Skin: Warm, dry, no erythema, no rash. [] Extremities: No tenderness, no cyanosis, no clubbing, ROM intact. [] Neurologic: Alert and oriented X 3, no focal deficits noted. [] Current Patient Data Vital Signs Vital Signs Date Time Temp Pulse Resp B/P (MAP) Pulse Ox O2 Delivery O2 Flow Rate FiO2 10/13/19 09:30 97.9 93 18 90 Room Air Lab Results Laboratory Tests Test 10/13/19 09:00 White Blood Count 10.6 x10^3/uL (4.0-11.0) Red Blood Count 4.36 x10^6/uL (4.30-5.70) Hemoglobin 11.9 g/dL (13.0-17.5) L Hematocrit 37.0 % (39.0-53.0) L Mean Corpuscular Volume 85 fL (79-100) Mean Corpuscular Hemoglobin 27 pg (25-35) Mean Corpuscular Hemoglobin Concent 32 g/dL (31-37) Red Cell Distribution Width 15.7 % (11.5-14.5) H Platelet Count 338 x10^3/uL (140-400) Neutrophils (%) (Auto) 92 % (31-73) H Lymphocytes (%) (Auto) 5 % (24-48) L Monocytes (%) (Auto) 3 % (0-9) Eosinophils (%) (Auto) 0 % (0-3) Basophils (%) (Auto) 0 % (0-3) Neutrophils # (Auto) 9.7 x10^3uL (1.8-7.7) H Lymphocytes # (Auto) 0.5 x10^3/uL (1.0-4.8) L Monocytes # (Auto) 0.4 x10^3/uL (0.0-1.1) Eosinophils # (Auto) 0.0 x10^3/uL (0.0-0.7) Basophils # (Auto) 0.0 x10^3/uL (0.0-0.2) Prothrombin Time 11.2 SEC (9.4-11.4) Prothrombin Time INR 1.1 (0.9-1.1) Activated Partial Thromboplast Time 25 SEC (23-33) Sodium Level 137 mmol/L (136-145) Potassium Level 3.8 mmol/L (3.5-5.1) Chloride Level 97 mmol/L (98-107) L Carbon Dioxide Level 28 mmol/L (21-32) Anion Gap 12 (6-14) Blood Urea Nitrogen 34 mg/dL (8-26) H Creatinine 1.3 mg/dL (0.7-1.3) Estimated GFR (Cockcroft-Gault) 52.7 Glucose Level 144 mg/dL (70-99) H Calcium Level 9.9 mg/dL (8.5-10.1) EKG EKG [] Radiology/Procedures Radiology/Procedures [] Impressions: PROCEDURE: PORTABLE CHEST 1V Examination: PORTABLE CHEST 1V History: Vomiting Comparison/Correlation: 05/03/2019 Portable Chest X-ray Exam Findings: Upright portable frontal view chest was obtained. Right basilar discoid atelectasis is present. No pneumothorax. Limited pulmonary infiltration noted. Heart size normal. Pulmonary vasculature is normal. No suspicious consolidation. Small hiatal hernia noted. Gaseous distention of left upper quadrant small bowel is suspected. Impression: Mild right basilar discoid atelectasis. Hiatal hernia. Gaseous distention of bowel is suspected of indeterminate significance. Electronically signed by: Adalberto Paul MD (10/13/2019 9:19 AM) [facility] PROCEDURE: CT ABD PELV W/ IV CONTRST ONLY Examination: CT ABD PELV W/ IV CONTRST ONLY History: Abdominal pain Comparison/Correlation: None Findings: Axial images of the abdomen and pelvis were obtained following IV contrast. Sagittal and coronal reformatted images were provided. Minimal bibasilar linear discoid atelectasis is present. Moderate-sized hiatal hernia is present. Fluid is present within the hernia and the stomach as well as numerous distended loops of left-sided small bowel. Transition is present within the right lower quadrant region. Decompressed distal small bowel loops are present. Liver is unremarkable. Gallbladder fossa is unremarkable. Adrenal glands are normal. Along the medial margin of the pancreatic uncinate, there is a septated cystic structure measuring 4.8 cm transverse by 2 cm anteroposterior by 2.5 cm longitudinal. No pancreatic ductal dilatation. Numerous bilateral renal cysts are present greater in number and size in the right. No hydronephrosis. Marked calcification involvement of the middle aorta and common iliac arteries noted. Moderate quantity of stool along the proximal colon noted. No inflammatory change about the cecum. Appendix appears to be present and unremarkable. Bilateral hip joint prostheses are present with associated streak artifact limiting evaluation of the urinary bladder and pelvis overall. Prostatic brachytherapy seeds are numerous. No enlarged abdominal or pelvic lymph nodes. No ascites or pelvic free fluid. Mild concentric disc bulge at L4-5. Impression: Distended fluid-filled small bowel with transition in the right lower quadrant region compatible with small bowel obstruction. Hiatal hernia. Septated cystic structures present along the medial margin of the uncinate process of the pancreas. This may represent a pseudocyst although neoplastic process is not excluded. Interval follow-up to assess stability is recommended. Dedicated pancreatic CT protocol or MRI without and with contrast if interval may be performed for assessment of stability and for further characterization. PQRS Compliance Statement: One or more of the following individualized dose reduction techniques were utilized for this examination: 1. Automated exposure control 2. Adjustment of the mA and/or kV according to patient size 3. Use of iterative reconstruction technique Electronically signed by: Adalberto Paul MD (10/13/2019 10:59 AM) [facility] DICTATED AND SIGNED BY: ADALBERTO PAUL MD DATE: 10/13/19 1059 Course & Med Decision Making Course & Med Decision Making Pertinent Labs and Imaging studies reviewed. (See chart for details) [] Dragon Disclaimer Dragon Disclaimer This electronic medical record was generated, in whole or in part, using a voice recognition dictation system. Departure Departure: Impression: Primary Impression: Small bowel obstruction Disposition: XFER SHT-TRM HOSP Admitting Physician: Coty Camara Condition: IMPROVED Referrals: NAZIA AYALA MD (PCP) EMILY RAMIREZ Jr. DO Oct 13, 2019 10:06
[2019-10-13] MEDS ORDERED: CONTRAST GIVEN MC PRN (10:30)
[2019-10-13] MEDS ORDERED: IOHEXOL 300 MG/ML 75 ML VIAL. IV ONE (10:30)
--- NOTE | 2019-10-13 11:01 | RAD ---
Examination: CT ABD PELV W/ IV CONTRST ONLY History: Abdominal pain Comparison/Correlation: None Findings: Axial images of the abdomen and pelvis were obtained following IV contrast. Sagittal and coronal reformatted images were provided. Minimal bibasilar linear discoid atelectasis is present. Moderate-sized hiatal hernia is present. Fluid is present within the hernia and the stomach as well as numerous distended loops of left-sided small bowel. Transition is present within the right lower quadrant region. Decompressed distal small bowel loops are present. Liver is unremarkable. Gallbladder fossa is unremarkable. Adrenal glands are normal. Along the medial margin of the pancreatic uncinate, there is a septated cystic structure measuring 4.8 cm transverse by 2 cm anteroposterior by 2.5 cm longitudinal. No pancreatic ductal dilatation. Numerous bilateral renal cysts are present greater in number and size in the right. No hydronephrosis. Marked calcification involvement of the middle aorta and common iliac arteries noted. Moderate quantity of stool along the proximal colon noted. No inflammatory change about the cecum. Appendix appears to be present and unremarkable. Bilateral hip joint prostheses are present with associated streak artifact limiting evaluation of the urinary bladder and pelvis overall. Prostatic brachytherapy seeds are numerous. No enlarged abdominal or pelvic lymph nodes. No ascites or pelvic free fluid. Mild concentric disc bulge at L4-5. Impression: Distended fluid-filled small bowel with transition in the right lower quadrant region compatible with small bowel obstruction. Hiatal hernia. Septated cystic structures present along the medial margin of the uncinate process of the pancreas. This may represent a pseudocyst although neoplastic process is not excluded. Interval follow-up to assess stability is recommended. Dedicated pancreatic CT protocol or MRI without and with contrast if interval may be performed for assessment of stability and for further characterization. PQRS Compliance Statement: One or more of the following individualized dose reduction techniques were utilized for this examination: 1. Automated exposure control 2. Adjustment of the mA and/or kV according to patient size 3. Use of iterative reconstruction technique Electronically signed by: Adalberto Hathaway MD (10/13/2019 10:59 AM) [facility]
[2019-10-13 11:19] VITALS: BP 111/59
--- NOTE | 2019-10-16 08:36 | EKG ---
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
== END 2019-10-13 12:48 | disposition short-term general hospital (02) ==
LOC: ER 08:43
DX: K56.609 Unspecified intestinal obstruction, unspecified as to partial versus complete obstruction (principal); R11.2 Nausea with vomiting, unspecified; I10 Essential (primary) hypertension; G20 Parkinson's disease; Z91.041 Radiographic dye allergy status
CPT/HCPCS: 36415; 71045; 74177; 80048; 85025; 85610; 85730; 93005; 96361; 96374; 96375; 99285; C9113; J2405; Q9967; J7030

== ENCOUNTER 2020-07-16 14:08 | Emergency (ER) | payer MEDICARE, BC ==
[~2020-07-16] VITALS: Ht 182.9 cm; Wt 89.0 kg
[~2020-07-16 14:08] MED LIST changes: +MULT-445 PO; -MULT1TAB52 PO
--- NOTE | 2020-07-16 14:15 | PHYS DOC ---
Past History Past Medical History: Other Additional Past Medical Histor: Parkinsons disease, depression, hypertension Past Surgical History: Hip Replacement Smoking: Non-smoker Alcohol Use: None Drug Use: None General Adult EDM: Chief Complaint: NEURO SYMPTOMS/DEFICITS HPI: HPI: 85-year-old male past medical history significant for Parkinson's disease/dementia, HLD, BPH, HTN, TIA, and depression, presents the ED brought in by EMS with concern for slurred speech that started around 9 AM this morning. Glucose in 100s per ems. On no AC, takes aspirin daily. EMR was reviewed and patient was admitted to the hospital earlier this year for small bowel obstruction. Patient also with left hip replacement complicated with mrsa infection. Review of Systems: Review of Systems: Constitutional: Denies fever or chills Eyes: Denies change in visual acuity HENT: Denies nasal congestion or sore throat Respiratory: Denies cough or shortness of breath Cardiovascular: Denies chest pain or edema GI: Denies abdominal pain, nausea, vomiting, bloody stools or diarrhea : Denies dysuria Musculoskeletal: Denies back pain or joint pain Integument: Denies rash Neurologic: Denies headache, focal weakness or sensory changes Endocrine: Denies polyuria or polydipsia Lymphatic: Denies swollen glands Psychiatric: Denies depression or anxiety Heart Score: Risk Factors: Risk Factors: DM, Current or recent (<one month) smoker, HTN, HLP, family history of CAD, obesity. Risk Scores: Score 0 - 3: 2.5% MACE over next 6 weeks - Discharge Home Score 4 - 6: 20.3% MACE over next 6 weeks - Admit for Clinical Observation Score 7 - 10: 72.7% MACE over next 6 weeks - Early Invasive Strategies Allergies: Allergies: Allergies Coded Allergies Type Severity Reaction Last Updated Verified I S O L A T I O N *CONTACT* Allergy Unknown 06/27/18 Yes NKMA Allergy Unknown 06/27/18 Yes Physical Exam: PE: Constitutional: Well developed, well nourished, no acute distress, non-toxic appearance. [] HENT: Normocephalic, atraumatic, bilateral external ears normal, oropharynx moist, no oral exudates, nose normal. [] Eyes: PERRLA, EOMI, conjunctiva normal, no discharge. [] Neck: Normal range of motion, no tenderness, supple, no stridor. [] Cardiovascular:Heart rate regular rhythm, no murmur [] Lungs & Thorax: Bilateral breath sounds clear to auscultation [] Abdomen: Bowel sounds normal, soft, no tenderness, no masses, no pulsatile masses. [] Skin: Warm, dry, no erythema, no rash. [] Back: No tenderness, no CVA tenderness. [] Extremities: No tenderness, no cyanosis, no clubbing, ROM intact, no edema. [] Neurologic: Alert and oriented X 3, normal motor function, normal sensory function, no focal deficits noted. [] Psychologic: Affect normal, judgement normal, mood normal. [] EKG: EKG: Sinus rhythm at 65 bpm, left axis deviation, frequent PVCs, normal intervals, T wave inversion lead III and V2, no ST elevations or ST depressions Radiology/Procedures: Radiology/Procedures: IMAGING REPORT Signed PATIENT: TEA RAGLAND ACCOUNT: [id number] : 1935 LOCATION: ER AGE: 85 SEX: M EXAM STATUS: PRE ER ORD. PHYSICIAN: LURDES CASTANEDA DO REASON: ALTERED MENTAL STATUS PROCEDURE: CT CODE STROKE HEAD WO Examination: CT CODE STROKE HEAD WO History: Reason: ALTERED MENTAL STATUS / Spl. Instructions: / History: Comparison/Correlation: 07/05/2019 CT head without contrast Findings: Axial images were obtained without contrast. Atrophy is present. No intracranial hemorrhage. Right high frontal infarct is present. It is similar greater in extent as compared to the previous exam. Right temporal lobe infarct with encephalomalacia is lower in density as compared to appears exam. Left frontal lobe infarct is new since prior exam. This appears to be late subacute or older. Ventricles are normal size. No midline shift or mass effect. Bony structures are unremarkable. Impression: Multiple old infarcts. Increase encephalomalacia at the sites of old infarct. Increased size and extent of right high frontal infarct which is of indeterminate age. Left frontal infarct is new since the previous exam but appears at least subacute or older in age. No intracranial hemorrhage. On 07/16/2020 at 2:20 PM, results were reported to the referring ED physician. PQRS Compliance Statement: One or more of the following individualized dose reduction techniques were utilized for this examination: 1. Automated exposure control 2. Adjustment of the mA and/or kV according to patient size 3. Use of iterative reconstruction technique Electronically signed by: Adalberto Paul MD (07/16/2020 2:22 PM) [id number] DICTATED AND SIGNED BY: ADALBERTO PAUL MD DATE: 07/16/20 1422 CC: NAZIA AYALA MD; LURDES CASTANEDA DO ~ IMAGING REPORT Signed PATIENT: TEA RAGLAND ACCOUNT: [id number] : 1935 LOCATION: ER AGE: 85 SEX: M EXAM STATUS: REG ER ORD. PHYSICIAN: LURDES CASTANEDA DO REASON: ALTERED MENTAL STATUS PROCEDURE: PORTABLE CHEST 1V Examination: PORTABLE CHEST 1V History: ALTERED MENTAL STATUS Comparison/Correlation: 10/13/2019 chest x-ray exam Findings: Portable upright frontal view of the chest was obtained. Heart size and pulmonary vasculature are within normal limits. No pneumothorax. Mild left basilar discoid atelectasis is present. Subtle opacification in the mid thoracic level bilaterally appears represent overlying soft tissue. No definite effusion. Impression: Mild right basilar discoid atelectasis. No definite infiltrate. Consider lateral view for complete assessment if clinically desired. Electronically signed by: Adalberto Paul MD (07/16/2020 2:33 PM) [id number] DICTATED AND SIGNED BY: ADALBERTO PAUL MD DATE: 07/16/20 1433 CC: NAZIA AYALA MD; LURDES CASTANEDA DO ~ IMAGING REPORT Signed PATIENT: TEA RAGLAND ACCOUNT: [id number] : 1935 LOCATION: ER AGE: 85 SEX: M EXAM STATUS: REG ER ORD. PHYSICIAN: LURDES CASTANEDA DO REASON: slurred speech, leg weakness PROCEDURE: CT ANGIOGRAPHY HEAD AND NECK Examination: CT ANGIOGRAPHY HEAD AND NECK History: slurred speech, leg weakness Comparison/Correlation: 05/03/2019 CTA of the head and neck EXAM: 1. CTA HEAD WITH AND WITHOUT CONTRAST. 2. CTA NECK WITH AND WITHOUT CONTRAST. TECHNIQUE: Computed tomographic angiography of the head and neck was performed following IV contrast according to arteriography protocol. Three-dimensional reconstructions were also performed. Maximum intensity projection images were provided. FINDINGS: Angiographic findings: The aortic arch has a typical branching pattern. There is no arch vessel stenosis. Both common carotid arteries are patent without stenosis. Both internal carotid arteries are patent without stenosis. The external carotid systems are patent. Calcification involving the carotid bulbs is present without significant stenosis. Approximately 50 percent stenosis of the right vertebral artery origin due to calcific plaque is present. Left vertebral artery is unremarkable. The basilar artery is tortuous and patent. Both posterior cerebral arteries are patent. The posterior communicating arteries are visualized. The intracranial internal carotid arteries demonstrate no stenosis. The middle cerebral arteries are patent. The anterior cerebral arteries are patent. The anterior communicating artery is visualized. Nonangiographic findings: Ventricles are normal size. No abnormal enhancing lesion identified. There is an old infarct involving the right temporal lobe changes present. Right and left high frontal infarcts are also present. The paranasal sinuses appear clear. The orbits are unremarkable. The temporal bones are unremarkable. Right C6-7 neural foraminal bony encroachment. The lung apices demonstrate no acute abnormality. The parotid glands and submandibular glands are unremarkable. The thyroid gland demonstrates no suspicious lesions. There are no laryngeal or pharyngeal masses. There are no pathologically enlarged lymph nodes. IMPRESSION: No significant stenosis. No aneurysm or dissection identified. No large vessel occlusion. Bilateral cerebral infarcts corresponding to CT head without contrast performed earlier on the same day. No abnormal enhancement otherwise seen. PQRS Compliance Statement - Stenosis calculations for CT, MR and conventional angiography are based upon measurement of the distal ICA diameter in accordance with the NASCET methodology. Stenosis calculations for carotid ultrasound studies are derived from validated velocity criteria which are known to correlate with the NASCET methodology. *One or more of the following individualized dose reduction techniques were utilized for this examination: 1. Automated exposure control. 2. Adjustment of the mA and/or kV according to patient size. 3. Use of iterative reconstruction technique. Electronically signed by: Adalberto Paul MD (07/16/2020 3:13 PM) [id number] DICTATED AND SIGNED BY: ADALBERTO PAUL MD DATE: 07/16/20 1513 CC: NAZIA AYALA MD; [facility] DO ~ Course & Med Decision Making: Course & Med Decision Making Pertinent Labs and Imaging studies reviewed. (See chart for details) Concern for altered mental status, cannot exclude new ischemic stroke/process. On re-eval, pt at his baseline mental status. Labs with chronic stable normocytic anemia. Pt afebrile, no leukocytosis. CXR w/no definite infiltrate. U/A with 0 bacteria, 3-5rbc, trace blood. Patient now at his current baseline mental status with dementia. I have spoken extensively with patient's and daughter who are at bedside. They report the patient is a DNR CODE STATUS. Patient follows with Dr. Huizar and neurology at . Patient's last MRI was in July 2019 that showed worsening strokes. Due to dementia and fall risk, patient is not on any anticoagulation. Patient ambulates with a walker and has home health aides, 3 caregivers a day, 7 days a week. Patient has not taken his medications today. reports that patient fell asleep around 11:30 AM and then had difficulties waking him for over an hour and a half-called EMS concerning for altered mental status. Denies and new medications, analgesia or sedative medications (I reviewed medication list). Family declining any further medical intervention including transfer for MRI, stroke risk factor reduction with admission for CVA, or social work consult for long-term care facility placement. and daughter aware that refusing these/my recommendations, could result in further worsening strokes, encephalopathy, life or limb threatening processes and despite this, family request to take pt home. Family reports pt does not do well outside of his home environment and that they have to stay with pt if he's admitted. They report understanding of risks in refusing my recomme ndations and are okay with this, despite life/limb threatening conditions, they preter comfort care for pt. reports patient can be seen by his primary care physician this week and understands urgent follow-up with their neurologist. We will give referrals if needed. Encouraged urgent outpatient follow-up with PMD and neurology. Life-threatening processes were considered, ischemic stroke was not excluded. Pt was educated on all prescription medications and adverse effects. All patient's questions were answered and pt was stable at time of discharge. Life/limb-threatening differential includes but is not limited to, cerebrova scular accident, cerebellar stroke, acute coronary syndrome, carbon monoxide poisoning or other toxidrome, arrhythmia, Guillan [place] syndrome, thyroid disease, central and peripheral vertigo, intracranial hemorrhage, vertebrobasilar insufficiency, heat stroke, electrolyte disorder, rheumatologic or autoimmune disorder I spoken with the patient and her caregivers. I explained the patient's condition, diagnoses and treatment plan based on the information available to me at this time. I have answered the patient and her caregiver's questions and addressed any concerns. The patient and her caregivers have a good understanding of patient's diagnosis, condition and treatment plan as can be expected at this point. Vital signs have been stable. Patient's condition is stable and appropriate for discharge from the emergency department. Patient will pursue further outpatient evaluation with primary care physician or other designated or consulting physician as outlined in the discharge instructions. The patient and/or caregivers are agreeable to this plan of care and follow-up instructions have been explained in detail. The patient and/or caregivers have received these instructions in written form and have expressed an understanding of the discharge instructions. The patient and/or caregivers are aware that any significant change of condition or worsening of symptoms should prompt immediate return to this or the closest emergency department or call to [id number] Disclaimer: Gisselle Disclaimer: This electronic medical record was generated, in whole or in part, using a voice recognition dictation system. Departure Departure: Impression: Primary Impression: Confusion Additional Impressions: CVA (cerebral vascular accident) Parkinson's disease dementia Disposition: 01 HOME/RESIDENCE PRIOR TO ADM Condition: STABLE Referrals: NAZIA AYALA MD (PCP) in 24-48 hours for blood pressure and cholesterol check-to lower stroke risk factors Patient Instructions: Dementia, Ischemic Stroke, Stroke Prevention Additional Instructions: FOLLOW UP WITH NEUROLOGY: Maida Hernandez MD [address] [place] [address], [address] [place] [address] OR [address] [place] [address] EMERGENCY DEPARTMENT GENERAL DISCHARGE INSTRUCTIONS Thank you for coming to [facility] (ED) today and trusting us with you care. We trust that you had a positivie experience in our Emergency Department. If you wish to speak to the department management, you may call the director at [phone]. YOUR FOLLOW UP INSTRUCTIONS ARE FOLLOWS: 1. Do you have a private Doctor? If you do not have a private doctor, please ask for a resource list of physicians or clinics that may be able to assist you with follow up care. 2. The Emergency Physician has interpreted your x-rays. The X-Ray specialist will also review them. If there is a change in the findings, you will be notified in 48 hours when at all possible. 3. A lab test or culture has been done, your results will be reviewed and you will be notified if you need a change in treatment. ADDITIONAL INSTRUCTIONS AND INFORMATION: 1. Your care today has been supervised by a physician who is specially trained in emergency care. Many problems require more than one evaluation for a complete diagnosis and treatment. We recommend that you schedule your follow up appointment as recommended to ensure complete treatment of you illness or injury. If you are unable to obtain follow up care and continue to have a problem, or if your condition worsens, we recommend that you return to the ED. 2. We are not able to safely determine your condition over the phone nor are we able to give sound medical advice over the phone. For these safety reasons, if you call for medical advice we will ask you to come to the ED for further evaluation. 3. If you have any questions regarding these discharge instructions please call the ED at [phone]. SAFETY INFORMATION: In the interest of safety, wellness, and injury prevention; we encourage you to wear your sealbelt, if you smoke; quite smoking, and we encourage family to use a protective helmet for bicycling and other sporting events that present an increased risk for head injury. IF YOUR SYMPTOMS WORSEN OR NEW SYMPTOMS DEVELOP, OR YOU HAVE CONCERNS ABOUT YOUR CONDITION; OR IF YOUR CONDITION WORSENS WHILE YOU ARE WAITING FOR YOUR FOLLOW UP APPOINTMENT; EITHER CONTACT YOUR PRIMARY CARE DOCTOR, THE PHYSICIAN WHOSE NAME AND NUMBER YOU WERE GIVEN, OR RETURN TO THE ED IMMEDIATELY. LURDES CASTANEDA DO Jul 16, 2020 14:15
--- NOTE | 2020-07-16 14:24 | RAD ---
Examination: CT CODE STROKE HEAD WO History: Reason: ALTERED MENTAL STATUS / Spl. Instructions: / History: Comparison/Correlation: 07/05/2019 CT head without contrast Findings: Axial images were obtained without contrast. Atrophy is present. No intracranial hemorrhage. Right high frontal infarct is present. It is similar greater in extent as compared to the previous exam. Right temporal lobe infarct with encephalomalacia is lower in density as compared to appears exam. Left frontal lobe infarct is new since prior exam. This appears to be late subacute or older. Ventricles are normal size. No midline shift or mass effect. Bony structures are unremarkable. Impression: Multiple old infarcts. Increase encephalomalacia at the sites of old infarct. Increased size and extent of right high frontal infarct which is of indeterminate age. Left frontal infarct is new since the previous exam but appears at least subacute or older in age. No intracranial hemorrhage. On 07/16/2020 at 2:20 PM, results were reported to the referring ED physician. PQRS Compliance Statement: One or more of the following individualized dose reduction techniques were utilized for this examination: 1. Automated exposure control 2. Adjustment of the mA and/or kV according to patient size 3. Use of iterative reconstruction technique Electronically signed by: Adalberto Hathaway MD (07/16/2020 2:22 PM) [id number]
[2020-07-16] MEDS ORDERED: IOHEXOL 350 MG/ML 100 ML VIAL. IV ONE (14:30)
--- NOTE | 2020-07-16 14:36 | RAD ---
Examination: PORTABLE CHEST 1V History: ALTERED MENTAL STATUS Comparison/Correlation: 10/13/2019 chest x-ray exam Findings: Portable upright frontal view of the chest was obtained. Heart size and pulmonary vasculature are within normal limits. No pneumothorax. Mild left basilar discoid atelectasis is present. Subtle opacification in the mid thoracic level bilaterally appears represent overlying soft tissue. No definite effusion. Impression: Mild right basilar discoid atelectasis. No definite infiltrate. Consider lateral view for complete assessment if clinically desired. Electronically signed by: Adalberto Hathaway MD (07/16/2020 2:33 PM) [id number]
[2020-07-16 14:42] LABS: CALCIUM 9.2 mg/dL (8.5-10.1); CREATININE 0.9 mg/dL (0.7-1.3); GFR 80.4; POTASSIUM 4.2 mmol/L (3.5-5.1)
[2020-07-16 14:48] LABS: BASO % 1 % (0-3); EOS # 0.1 x10^3/uL (0.0-0.7); EOS % 2 % (0-3); HEMATOCRIT 35.5 % (39.0-53.0); HEMOGLOBIN 11.4 g/dL (13.0-17.5); LYMPH # 1.1 x10^3/uL (1.0-4.8); LYMPH % 18 % (24-48); MEAN CORPUSCULAR HEMOGLOBIN 28 pg (25-35); MEAN CORPUSCULAR HGB CONC 32 g/dL (31-37); MEAN CORPUSCULAR VOLUME 88 fL (79-100); MONO # 0.6 x10^3/uL (0.0-1.1); MONO % 11 % (0-9); NEUT # 4.1 x10^3uL (1.8-7.7); NEUT % 69 % (31-73); PLATELET COUNT 221 x10^3/uL (140-400); RED BLOOD COUNT 4.02 x10^6/uL (4.30-5.70); RED CELL DISTRIBUTION WIDTH 18.2 % (11.5-14.5)
[2020-07-16 14:54] LABS: ALBUMIN 3.6 g/dL (3.4-5.0); MAGNESIUM 2.3 mg/dL (1.8-2.4); TOTAL BILIRUBIN 0.2 mg/dL (0.2-1.0); TOTAL PROTEIN 7.2 g/dL (6.4-8.2)
--- NOTE | 2020-07-16 15:16 | RAD ---
Examination: CT ANGIOGRAPHY HEAD AND NECK History: slurred speech, leg weakness Comparison/Correlation: 05/03/2019 CTA of the head and neck EXAM: 1. CTA HEAD WITH AND WITHOUT CONTRAST. 2. CTA NECK WITH AND WITHOUT CONTRAST. TECHNIQUE: Computed tomographic angiography of the head and neck was performed following IV contrast according to arteriography protocol. Three-dimensional reconstructions were also performed. Maximum intensity projection images were provided. FINDINGS: Angiographic findings: The aortic arch has a typical branching pattern. There is no arch vessel stenosis. Both common carotid arteries are patent without stenosis. Both internal carotid arteries are patent without stenosis. The external carotid systems are patent. Calcification involving the carotid bulbs is present without significant stenosis. Approximately 50 percent stenosis of the right vertebral artery origin due to calcific plaque is present. Left vertebral artery is unremarkable. The basilar artery is tortuous and patent. Both posterior cerebral arteries are patent. The posterior communicating arteries are visualized. The intracranial internal carotid arteries demonstrate no stenosis. The middle cerebral arteries are patent. The anterior cerebral arteries are patent. The anterior communicating artery is visualized. Nonangiographic findings: Ventricles are normal size. No abnormal enhancing lesion identified. There is an old infarct involving the right temporal lobe changes present. Right and left high frontal infarcts are also present. The paranasal sinuses appear clear. The orbits are unremarkable. The temporal bones are unremarkable. Right C6-7 neural foraminal bony encroachment. The lung apices demonstrate no acute abnormality. The parotid glands and submandibular glands are unremarkable. The thyroid gland demonstrates no suspicious lesions. There are no laryngeal or pharyngeal masses. There are no pathologically enlarged lymph nodes. IMPRESSION: No significant stenosis. No aneurysm or dissection identified. No large vessel occlusion. Bilateral cerebral infarcts corresponding to CT head without contrast performed earlier on the same day. No abnormal enhancement otherwise seen. PQRS Compliance Statement - Stenosis calculations for CT, MR and conventional angiography are based upon measurement of the distal ICA diameter in accordance with the NASCET methodology. Stenosis calculations for carotid ultrasound studies are derived from validated velocity criteria which are known to correlate with the NASCET methodology. *One or more of the following individualized dose reduction techniques were utilized for this examination: 1. Automated exposure control. 2. Adjustment of the mA and/or kV according to patient size. 3. Use of iterative reconstruction technique. Electronically signed by: Adalberto Hathaway MD (07/16/2020 3:13 PM) [place] [id number]
[2020-07-16 15:43] LABS: BILIRUBIN,URINE NEG (NEG); CLARITY,URINE CLEAR; COLOR,URINE YELLOW; GLUCOSE,URINE NEG (NEG); NITRITE,URINE NEG (NEG); UROBILINOGEN,URINE 0.2 mg/dL (0.2 mg/dL); WBC,URINE OCC /HPF (0-4)
[2020-07-16 15:44] LABS: BACTERIA,URINE 0 /HPF (0-FEW)
[2020-07-16 18:18] VITALS: BP 171/98
--- NOTE | 2020-07-16 23:48 | EKG ---
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
== END 2020-07-16 18:15 | disposition home or self-care (01) ==
LOC: ER 14:08
DX: I63.9 Cerebral infarction, unspecified (principal); R47.81 Slurred speech; G20 Parkinson's disease; F02.80 Dementia in other diseases classified elsewhere, unspecified severity, without behavioral disturbance, psychotic disturbance, mood disturbance, and anxiety; R41.0 Disorientation, unspecified; F32.9 Major depressive disorder, single episode, unspecified; I10 Essential (primary) hypertension; E78.5 Hyperlipidemia, unspecified; Z86.73 Personal history of transient ischemic attack (TIA), and cerebral infarction without residual deficits; Z88.8 Allergy status to other drugs, medicaments and biological substances
CPT/HCPCS: 36415; 70450; 70496; 70498; 71045; 80053; 81001; 82550; 82947; 83605; 83735; 83880; 84484; 85025; 93005; 99285; Q9967

== ENCOUNTER 2022-03-06 07:44 | Inpatient (IN) | payer MEDICARE, BC ==
[~2022-03-06] VITALS: Ht 182.9 cm; Wt 87.6 kg
[~2022-03-06 07:44] MED LIST changes: +CARB-186 PO; -CARB1TAB2 PO; -DOXY100C2 PO; +DOXY100C3 PO; +FAMO-153 PO; -FAMO10TA69 PO; +LISI10TA16 PO; -LISI10TA2 PO; -VANC1.2514 IV; +VANC1.2523 IV
[2022-03-06] MEDS ORDERED: ACETAMINOPHEN 500 MG TABLET PO ONE (08:00)
--- NOTE | 2022-03-06 08:06 | PHYS DOC ---
Past History Past Medical History: Other Additional Past Medical Histor: Parkinsons disease, depression, hypertension Past Surgical History: Hip Replacement Smoking: Non-smoker Alcohol Use: None Drug Use: None General Adult EDM: Chief Complaint: FEVER HPI: HPI: Patient is a 86-year-old male coming in from home for altered mental status and fever. Per patient's and EMS he has been having increasing confusion over the past couple days, was noted to have some respiratory distress and fever this morning. Review of Systems: Review of Systems: All other systems within normal limits except for as noted in the HPI Current Medications: Current Meds: Current Medications Medications (Trade) Dose Ordered Sig/Neena Start Time Stop Time Status Last Admin Dose Admin Acetaminophen (Tylenol) 1,000 mg 1X ONCE 03/06/22 08:00 03/06/22 08:01 UNV Allergies: Allergies: Allergies Coded Allergies Type Severity Reaction Last Updated Verified I S O L A T I O N *CONTACT* Allergy Unknown 06/27/18 Yes No Known Medication Allergies Allergy Unknown 06/27/18 Yes Physical Exam: PE: Constitutional: Well developed, well nourished, no acute distress, non-toxic appearance. [] HENT: Normocephalic, atraumatic, bilateral external ears normal, nose normal. [] Eyes: PERRLA, conjunctiva normal, no discharge. [] Neck: No rigidity, supple, no stridor. [] Cardiovascular: Regular rate and rhythm, brisk cap refill [] Lungs & Thorax: Non labored symmetric respirations, no tachypnea or respiratory distress [] Abdomen: Soft, nondistended. Skin: Warm, dry, no erythema, no rash. [] Back: Unremarkable Extremities: No deformities, range of motion grossly intact, no lower extremity edema [] Neurologic: Alert and oriented X 3, no focal deficits noted. Resting upper extremity tremors [] Psychologic: Affect normal, judgement normal, mood normal. [] EKG: EKG: [] Radiology/Procedures: Radiology/Procedures: [][address] [address] IMAGING REPORT Signed PATIENT: TEA RAGLAND ACCOUNT: [id number] : 1935 LOCATION: ER AGE: 86 SEX: M EXAM STATUS: REG ER ORD. PHYSICIAN: SANDY HORAN MD REASON: hypoxia PROCEDURE: CT CHEST WO CONTRAST CT THORAX WO History: Hypoxia Technique: Noncontrast CT of the chest was performed. Coronal and sagittal reconstructions were performed. Exposure: One or more of the following individualized dose reduction techniques were utilized for this examination: 1. Automated exposure control 2. Adjustment of the mA and/or kV according to patient size 3. Use of iterative reconstruction technique. Comparison: March 15, 2016 Findings: Chest: Small mediastinal lymph nodes. Coronary artery calcifications. Small hiatal hernia. Minimal fluid within the distal esophagus. Mild atheromatous plaque within the aorta. Scattered mild linear atelectasis bilaterally most prominent within the right lower lobe. No consolidation. No pleural effusion. No pneumothorax. Upper abdomen: Partially imaged renal cysts largest on the right measures 9.7 cm and the left measures 5.1 cm. Bones: DISH related changes of the thoracic spine. Impression: 1. Mild scattered linear atelectasis bilaterally. 2. Small hiatal hernia with minimal fluid within the distal esophagus, may relate to reflux. Electronically signed by: Ry Lala DO (03/06/2022 9:45 AM) [id number] DICTATED AND SIGNED BY: RY LALA DO DATE: 03/06/22928 CC: NAZIA AYALA MD; SANDY HORAN MD ~ Heart Score: C/O Chest Pain: No Risk Factors: Risk Factors: DM, Current or recent (<one month) smoker, HTN, HLP, family history of CAD, obesity. Risk Scores: Score 0 - 3: 2.5% MACE over next 6 weeks - Discharge Home Score 4 - 6: 20.3% MACE over next 6 weeks - Admit for Clinical Observation Score 7 - 10: 72.7% MACE over next 6 weeks - Early Invasive Strategies Course & Med Decision Making: Course & Med Decision Making Patient started initially reluctant to admit patient, due to history of falls. Patient does desaturate to 88% on room air when oxygen is removed. Back to reevaluate patient, his is requesting he be admitted. Patient's takes care of him at home Gisselle Disclaimer: Gisselle Disclaimer: This electronic medical record was generated, in whole or in part, using a voice recognition dictation system. Departure Departure: Impression: Primary Impression: Pneumonia Admitting Physician: Saul Hawk Condition: STABLE Referrals: NAZIA AYALA MD (PCP) SANDY HORAN MD March 06, 2022 08:06
[2022-03-06 08:37] LABS: BASO % 1 % (0-3); EOS # 0.1 x10^3/uL (0.0-0.7); EOS % 1 % (0-3); HEMATOCRIT 33.5 % (39.0-53.0); HEMOGLOBIN 10.8 g/dL (13.0-17.5); LYMPH # 0.4 x10^3/uL (1.0-4.8); LYMPH % 7 % (24-48); MEAN CORPUSCULAR HEMOGLOBIN 28 pg (25-35); MEAN CORPUSCULAR HGB CONC 32 g/dL (31-37); MEAN CORPUSCULAR VOLUME 86 fL (79-100); MONO # 0.6 x10^3/uL (0.0-1.1); MONO % 11 % (0-9); NEUT # 4.2 x10^3uL (1.8-7.7); NEUT % 80 % (31-73); PLATELET COUNT 205 x10^3/uL (140-400); RED BLOOD COUNT 3.88 x10^6/uL (4.30-5.70); RED CELL DISTRIBUTION WIDTH 15.7 % (11.5-14.5); WHITE BLOOD COUNT 5.2 x10^3/uL (4.0-11.0)
[2022-03-06] MEDS ORDERED: ACETAMINOPHEN 650 MG SUPP.RECT. ONE (08:42)
[2022-03-06 08:44] LABS: CALCIUM 9.1 mg/dL (8.5-10.1); CREATININE 0.9 mg/dL (0.7-1.3); GFR 80.2; POTASSIUM 4.5 mmol/L (3.5-5.1)
[2022-03-06] MEDS ORDERED: IPRATRPIUM/ALBUTEROL 0.5/2.5MG 3 ML NEBU. NEB ONE ×2 (08:45→10:15)
[2022-03-06 08:56] LABS: ALBUMIN 3.3 g/dL (3.4-5.0); ALBUMIN/GLOBULIN RATIO 1.1 (1.0-1.7); MAGNESIUM 2.2 mg/dL (1.8-2.4); PHOSPHORUS 3.5 mg/dL (2.6-4.7); TOTAL BILIRUBIN 0.3 mg/dL (0.2-1.0); TOTAL PROTEIN 6.2 g/dL (6.4-8.2)
[2022-03-06] MEDS ORDERED: ACETAMINOPHEN 650 MG SUPP.RECT. PR ONE (09:15)
[2022-03-06 09:37] LABS: INFLUENZA A PATIENT NEGATIVE (NEGATIVE); INFLUENZA B PATIENT NEGATIVE (NEGATIVE)
[2022-03-06] MEDS ORDERED: IV NORMAL SALINE 500ML 500 ML IV ONE (09:45)
--- NOTE | 2022-03-06 09:47 | RAD ---
CT THORAX WO History: Hypoxia Technique: Noncontrast CT of the chest was performed. Coronal and sagittal reconstructions were perfo rmed. Exposure: One or more of the following individualized dose reduction techniques were utilized for thi s examination: 1. Automated exposure control 2. Adjustment of the mA and/or kV according to patient size 3. Use of iterative reconstruction technique. Comparison: March 15, 2016 Findings: Chest: Small mediastinal lymph nodes. Coronary artery calcifications. Small hiatal hernia. Minimal fl uid within the distal esophagus. Mild atheromatous plaque within the aorta. Scattered mild linear atelectasis bilaterally most prominent within the right lower lobe. No consolid ation. No pleural effusion. No pneumothorax. Upper abdomen: Partially imaged renal cysts largest on the right measures 9.7 cm and the left measure s 5.1 cm. Bones: DISH related changes of the thoracic spine. Impression: 1. Mild scattered linear atelectasis bilaterally. 2. Small hiatal hernia with minimal fluid within the distal esophagus, may relate to reflux. Electronically signed by: Ry Lala DO (03/06/2022 9:45 AM) [id number]
[2022-03-06 09:53] LABS: BACTERIA,URINE MANY /HPF (0-FEW); CLARITY,URINE TURBID; COLOR,URINE YELLOW; GLUCOSE,URINE NEG (NEG); NITRITE,URINE POS (NEG); UROBILINOGEN,URINE 0.2 mg/dL (0.2 mg/dL); WBC,URINE TNTC /HPF (0-4)
[2022-03-06] MEDS ORDERED: ACETAMINOPHEN 325 MG TABLET PO PRN (10:30)
[2022-03-06] MEDS ORDERED: ERTAPENEM 1 GM in IV NORMAL SALINE 50ML 50 ML IV ONE (10:30)
[2022-03-06] MEDS ORDERED: ONDANSETRON PF 4 MG/2 ML VIAL. IVP PRN (10:30)
[2022-03-06] MEDS ORDERED: DEXAMETHASONE SOD PHOS 10 MG/ML VIAL. IVP ONE (10:30)
[2022-03-06] MEDS ORDERED: ACETAMINOPHEN 500 MG TABLET PO PRN (11:30)
--- NOTE | 2022-03-06 11:33 | HP ---
DATE OF SERVICE: 03/06/2022 ADMIT DATE: 03/06/2022 ATTENDING PHYSICIAN: Dr. Hawk. CHIEF COMPLAINT: Weakness and cough. HISTORY OF PRESENT ILLNESS: The patient is an 86-year-old gentleman cared for by at home. He has been in decline. He has had recurrent pneumonia, most likely due to aspiration. He has persistent infiltrate on CT scan. He has been on several antibiotics. Oxygenations are marginal. He is very confused and debilitated due to underlying Parkinson's disease. Unfortunately, his cannot manage him at home. He is admitted then with the inpatient care, [id number] respiratory failure and end-stage Parkinson's disease with profound dementia. PAST MEDICAL HISTORY: Significant for Parkinson's disease, chronic aspiration pneumonia. He also has dementia. 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 He had prostate cancer in 2003 with radiation therapy. He has had bilateral hip fractures, right and left, resulting in open reduction and internal fixation, Parkinson's disease that has been present since 2013. He had a bowel obstruction in 2019, requiring resection. ALLERGIES: He has no known drug allergies. CURRENT MEDICATIONS: Include amoxicillin, Tylenol, ascorbic acid, aspirin, Sinemet, cholecalciferol, Cipro, docusate, famotidine, lactobacillus, multivitamin, Bystolic and Crestor. SOCIAL HISTORY: He is a nonsmoker, nondrinker. 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 He lives at home with his . He is debilitated and requires total care. She has a home health agency providing 7 hours a day of nursing care to help her out. This was spaced out throughout the day and she pays out of pocket, which amounts to somewhere between $4000 and $5000 a month. He is a DNR per advanced directive. REVIEW OF SYSTEMS: Significant for the chronic cough, generalized debilitation. He is confused. FAMILY HISTORY: Unobtainable. PHYSICAL EXAMINATION: GENERAL: When I saw him, this is a chronically ill-appearing gentleman. VITAL SIGNS: His initial vital signs showed a blood pressure 113/73, pulse is 90 and regular. He was afebrile, oxygen saturation 96% on room air. HEENT: Head is without trauma. Pupils are reactive. Sclerae nonicteric. Oropharynx clear. NECK: Supple. LUNGS: Coarse rhonchi bilaterally. CARDIOVASCULAR: Showed regular heart tones. ABDOMEN: Soft. No guarding. EXTREMITIES: Show trace edema. NEUROLOGIC: Focally intact. He is confused and disoriented. He is bedridden and nonambulatory. PERTINENT LABORATORY STUDIES: Admission hemoglobin was 10.8 g/dL, white count 5200. Electrolytes within normal range. Nonfasting blood sugar 100. Transaminases are normal. BNP 800. Troponin was negative. Urinalysis was clear. Serology negative for influenza A, B and coronavirus. CT of the chest on admission showed scattered linear atelectasis, small hiatal hernia. ASSESSMENT: 1. This 86-year-old gentleman has recurrent aspiration pneumonia. 2. Parkinson's disease with debilitation. 3. Underlying dementia. 4. Anemia of chronic disease. 5. History of prostate cancer. 6. History of previous hip fractures. PLAN: 1. Admit to the inpatient unit. 2. Continue IV antibiotics. 3. Continue home meds. 4. He is a DNR per advanced directive. 5. Long discussion with the family regarding end of life and hospice care. ELOY/EVELIN DR: Shirley TID: [id number] CC: NAZIA AYALA MD
[2022-03-06] MEDS: IV NORMAL SALINE 1,000ML 1,000 ML IV SCH ×2 (12:28→22:36)
[2022-03-06] MEDS: MEROPENEM 1 GM in IV NORMAL SALINE 100ML 100 ML IV SCH ×2 (12:31→22:30)
[2022-03-06] MEDS: IPRATRPIUM/ALBUTEROL 0.5/2.5MG 3 ML NEBU. NEB SCH ×3 (14:00→19:47)
[2022-03-06 14:30] VITALS: BP 118/58
[2022-03-06] MEDS ORDERED: CARBIDOPA/LEVODOPA 25/100MG TABLET PO SCH (14:30)
[2022-03-06 20:11] VITALS: BP 142/67
[2022-03-06] MEDS ORDERED: CIPROFLOXACIN HCL 500 MG TABLET PO SCH (21:00)
[2022-03-06] MEDS ORDERED: CARBIDOPA/LEVODOPA CR 25/100MG TABLET.SA PO SCH (21:00)
[2022-03-06] MEDS ORDERED: ERTAPENEM 1 GM in IV NORMAL SALINE 50ML 50 ML IV SCH (22:30)
[2022-03-07 04:10] VITALS: BP 126/72
[2022-03-07] MEDS: IPRATRPIUM/ALBUTEROL 0.5/2.5MG 3 ML NEBU. NEB SCH (04:54)
[2022-03-07 05:06] VITALS: BP 139/64
[2022-03-07] MEDS: MEROPENEM 1 GM in IV NORMAL SALINE 100ML 100 ML IV SCH ×3 (05:51→21:02)
[2022-03-07 06:27] LABS: BASO % 0 % (0-3); EOS % 1 % (0-3); HEMATOCRIT 35.3 % (39.0-53.0); HEMOGLOBIN 11.1 g/dL (13.0-17.5); LYMPH # 0.8 x10^3/uL (1.0-4.8); LYMPH % 14 % (24-48); MEAN CORPUSCULAR HEMOGLOBIN 28 pg (25-35); MEAN CORPUSCULAR HGB CONC 32 g/dL (31-37); MEAN CORPUSCULAR VOLUME 88 fL (79-100); MONO # 0.8 x10^3/uL (0.0-1.1); MONO % 14 % (0-9); NEUT # 4.3 x10^3uL (1.8-7.7); NEUT % 71 % (31-73); PLATELET COUNT 197 x10^3/uL (140-400); RED BLOOD COUNT 4.01 x10^6/uL (4.30-5.70)
[2022-03-07 06:28] LABS: CALCIUM 9.1 mg/dL (8.5-10.1); CREATININE 0.8 mg/dL (0.7-1.3); GFR 91.9; POTASSIUM 4.3 mmol/L (3.5-5.1)
[2022-03-07] MEDS ORDERED: DOCUSATE SODIUM 100 MG CAPSULE PO SCH (09:00)
[2022-03-07] MEDS ORDERED: ASPIRIN CHEWABLE 81 MG TABLET. PO SCH (09:00)
[2022-03-07] MEDS: CARBIDOPA/LEVODOPA 25/100MG TABLET PO SCH ×5 (10:00→21:04)
[2022-03-07 10:26] VITALS: BP 131/86
[2022-03-07] MEDS: IV NORMAL SALINE 1,000ML 1,000 ML IV SCH (10:37)
[2022-03-07] MEDS ORDERED: IPRATRPIUM/ALBUTEROL 0.5/2.5MG 3 ML NEBU. NEB PRN (13:00)
[2022-03-07 15:16] VITALS: BP 112/59
[2022-03-07 19:38] VITALS: BP 124/66
--- NOTE | 2022-03-07 22:27 | PN ---
DATE: 03/07/2022 ATTENDING PHYSICIAN: Dr. Hawk. SUBJECTIVE: Confused. He is picking at things. He is not aware of person, place or time. OBJECTIVE FINDINGS: VITAL SIGNS: Blood pressure this morning is 136/64. He is afebrile. Oxygen saturation 98% on 3 liters by nasal cannula. HEENT: Head is without trauma. Pupils are reactive. Sclerae nonicteric. Oropharynx is clear. NECK: Supple, no bruits. LUNGS: Shallow respirations with rhonchi at bases. CARDIOVASCULAR: Showed regular heart tones. ABDOMEN: Soft. EXTREMITIES: Show trace edema. NEUROLOGIC FINDINGS: Profoundly confused. SKIN: Warm and dry. LABORATORY DATA: This morning, his hemoglobin is 11.1 g, white count of 6000. Chemistry panel normal BUN and creatinine, electrolytes. Sugars are normal. Serology negative for coronavirus. ASSESSMENT: 1. An 86-year-old gentleman with a persistent pneumonia, probable aspiration. 2. Acute on chronic respiratory failure. 3. History of Parkinson's disease, advanced. 4. Profound dementia. 5. History of prostate cancer. PLAN: 1. Continue antibiotics. 2. DNR per advanced directive. 3. Diet as tolerated. ELOY/MARÍA DR: ELOY/nathaniel TID: [id number] CC: NAZIA AYALA MD
[2022-03-08 02:00] VITALS: BP 120/71
[2022-03-08] MEDS: CARBIDOPA/LEVODOPA 25/100MG TABLET PO SCH ×6 (06:21→21:12)
[2022-03-08] MEDS: MEROPENEM 1 GM in IV NORMAL SALINE 100ML 100 ML IV SCH ×3 (06:22→21:12)
[2022-03-08 07:10] VITALS: BP 120/85
--- NOTE | 2022-03-08 08:46 | PN ---
DATE: 03/08/2022 ATTENDING PHYSICIAN: Dr. Hawk. SUBJECTIVE: Pleasantly confused. He is calm. He is not in any respiratory distress. OBJECTIVE FINDINGS: VITAL SIGNS: Oxygen saturations are 93% on 2 liters by nasal cannula, blood pressure is 120/85, pulse is 75 and regular. He is afebrile. HEENT: Head is without trauma. Pupils are reactive. Sclerae nonicteric. Oropharynx clear. NECK: Supple. No stridor. LUNGS: Shallow respirations. CARDIOVASCULAR: Show distant heart tones. No gallops. ABDOMEN: Soft. No guarding. EXTREMITIES: Show trace edema. NEUROLOGIC: Profoundly confused and bedridden. ASSESSMENT: 1. An 86-year-old gentleman with persistent pneumonia, most likely aspiration. 2. [id number] respiratory failure. 3. Parkinson's disease, advanced. 4. Profound dementia. 5. History of prostate cancer. PLAN: 1. Continue antibiotics. 2. We will wean down supplemental oxygen. 3. Advance diet as tolerated. 4. Tentative discharge plans for tomorrow to go home with hospice care. ELOY/EVELIN DR: ELOY/nathaniel TID: [id number]
[2022-03-08 11:45] VITALS: BP 95/62
[2022-03-08 15:29] VITALS: BP 107/62
[2022-03-08 19:28] VITALS: BP 119/57
[2022-03-08 23:14] VITALS: BP 109/67
[2022-03-09 03:32] VITALS: BP 151/89
[2022-03-09 05:23] VITALS: BP 163/89
[2022-03-09] MEDS: MEROPENEM 1 GM in IV NORMAL SALINE 100ML 100 ML IV SCH (05:39)
[2022-03-09] MEDS: CARBIDOPA/LEVODOPA 25/100MG TABLET PO SCH ×2 (05:39→10:00)
[2022-03-09 11:03] VITALS: BP 132/71
--- NOTE | 2022-03-09 12:47 | DS ---
DATE OF DISCHARGE: 03/09/2022 ATTENDING PHYSICIAN: Dr. Hawk. FINAL DISCHARGE DIAGNOSES: 1. Recurrent pneumonia, aspiration. 2. Acute on chronic respiratory failure, improved. 3. Parkinson's disease, advanced. 4. Profound dementia. 5. History of prostate cancer. HISTORY AND PHYSICAL: The patient is an 86-year-old gentleman has been cared for at home by his . He has recurrent pneumonia. He has been on several antibiotics. He continues to aspirate. He was admitted for further management. The cannot manage him alone. The family was in the process of getting hospice care. PHYSICAL EXAMINATION: Please see the dictated note. PERTINENT LABORATORY AND X-RAY STUDIES: On this admission, his hemoglobin was 10.8 g/dL with a white count of 5200. Chemistry panel showed a creatinine of 0.9 mg percent. Electrolytes within normal range. Transaminases were normal. Troponin negative for any coronary ischemia. BNP was 800. Serology negative for coronavirus. IMAGING STUDIES: A CT of the chest on this admission shows scattered linear atelectasis, chronic changes, no consolidation. Small hiatal hernia. COURSE IN THE HOSPITAL: The patient was admitted. He was started on Invanz for 3 days. Home medications were continued. We did a swallow eval and their recommendation on the chart. Family really wanted hospice care to be provided to home. We called [facility] who they already had been in contact with. Arrangements were made on the fourth hospital day for the patient to be transferred to home with [facility]. His home meds will be adjusted accordingly. At this time, I suggested that we continue his Sinemet, amoxicillin until complete, Cipro to complete, docusate, Pepcid, multivitamin, Bystolic, and Crestor doses unchanged. He is a DNR per advanced directives. His prognosis is terminal. Supplemental oxygen has been ordered through [facility]. The patient was then discharged from our hospital in stable condition with explicit drug and followup care. Total discharge time 39 minutes. ELOY/BRAIN DR: Shirley TID: [id number] CC: NAZIA AYALA MD
[2022-03-13] MEDS ORDERED: CHOLECALCIFEROL (VITAMIN D3) 1,000 UNIT TABLET PO SCH (09:00)
== END 2022-03-09 12:50 | disposition hospice, home (50) | DRG 177 ==
LOC: ER 07:44 → ER HOLD 10:38 → 1 SOUTH 10:38 → UNDOADMIN 10:38 → 1 SOUTH 03-08 07:21
PROVIDERS: ADMIT Hospitalist; ATTEND Hospitalist
DX: J69.0 Pneumonitis due to inhalation of food and vomit (principal); J96.21 Acute and chronic respiratory failure with hypoxia; J98.11 Atelectasis; D63.8 Anemia in other chronic diseases classified elsewhere; F02.80 Dementia in other diseases classified elsewhere, unspecified severity, without behavioral disturbance, psychotic disturbance, mood disturbance, and anxiety; G20 Parkinson's disease; I10 Essential (primary) hypertension; K44.9 Diaphragmatic hernia without obstruction or gangrene; Z51.5 Encounter for palliative care; Z66 Do not resuscitate; Z85.46 Personal history of malignant neoplasm of prostate; Z87.01 Personal history of pneumonia (recurrent); Z94.7 Corneal transplant status; Z96.649 Presence of unspecified artificial hip joint; F32.A Depression, unspecified
CPT/HCPCS: 36415; 51702; 71250; 80048; 80053; 81001; 82803; 83605; 83735; 83880; 84100; 84484; 85025; 87040; 87077; 87086; 87186; 87428; 93005; 94640; 96374; J1100; J2060; J2185; J7040; U0003; 99285-25; J7030